=== PATIENT | female | born 1950 | race Caucasian/White ===

== ENCOUNTER 2024-05-06 16:35 | Inpatient (IN) | payer MEDICARE, SELFPAY ==
[2024-05-06] VITALS (10 sets, daily range): BP systolic 103–129; BP diastolic 70–112; PULSE 71–175; RESP 18–39; TEMP 36.3; O2SAT 94–100
--- NOTE | ~2024-05-06 | CT_ITS ---
EXAMINATION: CT abdomen pelvis wo con DATE: 05/06/2024 21:02 INDICATION: Right lower quadrant abdominal pain. TECHNIQUE: Computed tomography (CT) of the abdomen and pelvis was performed without intravenous contr ast. Automated exposure control and iterative reconstruction technique were employed. The dose-length product was 756.50 mGy-cm. COMPARISON: None. FINDINGS: The visualized portions of the lung bases demonstrate mild atelectasis. There is a trace ri ght pleural effusion. Cardiomegaly is noted. No pericardial effusion. There is diffuse hepatic steato sis. The gallbladder, spleen, pancreas, and adrenal glands are normal. There is mild right hydronephr osis and hydroureter. There is cortical thinning of left kidney. There is a 2 mm stone in left kidney . There is diverticulosis of the colon without evidence of diverticulitis. There are no dilated loops of bowel. The appendix is normal. There is a small sliding hiatal hernia. There are no pathologicall y enlarged lymph nodes. There is no free intraperitoneal fluid. There is moderate lumbar spondylosis. There are hemangiomas in multiple vertebral bodies. IMPRESSION: 1. Mild right hydronephrosis and hydroureter. 2. 2 mm nonobstructing left kidney stone. Reviewed, dictated and finalized at location E.
--- NOTE | ~2024-05-06 | US_ITS ---
US renal BI 05/09/2024 14:36 Procedure: Realtime transabdominal ultrasound of the kidneys and bladder. Indication: Hydronephrosis follow-up Comparison: CT dated 05/06/2024 Findings: Renal echotexture is normal bilaterally without hydronephrosis, contour deforming mass or r enal calculus. Mild right pelviectasis. The right kidney measures 11.6 cm and left kidney measures 10 .8 cm. Bladder within normal limits. Impression: 1: Mild right renal pelviectasis. Reviewed, dictated and finalized at location B. Impression: 1: Mild right renal pelviectasis.
--- NOTE | ~2024-05-06 | XR_ITS ---
EXAMINATION: XR chest 1V portable DATE: 05/06/2024 22:37 INDICATION: Weakness. TECHNIQUE: A single frontal view of the chest was obtained. COMPARISON: CT abdomen pelvis 05/06/2024 FINDINGS: There is no pneumonia, pleural effusion, or pneumothorax. Cardiomegaly is noted. IMPRESSION: 1. Cardiomegaly. Reviewed, dictated and finalized at location E. IMPRESSION: 1. Cardiomegaly.
--- NOTE | 2024-05-06 19:43 | ECG_ITS ---
Test Date: 2024-05-06 20:18:21 Measurements Intervals [place] Rate: 181 P: 0 GA: 0 QRS: -6 QRSD: 84 T: 60 QT: 209 QTc: 363 Interpretive Statements ATRIAL FIBRILLATION WITH RAPID VENTRICULAR RESPONSE LEFT VENTRICULAR HYPERTROPHY WITH ST-T CHANGE NONSPECIFIC ST & T-WAVE ABNORMALITY- ANT/INF LEADS ABNORMAL ECG No previous ECG available for comparison Electronically Signed On 05-07-2024 06:09:14 CDT by Sylvester Mills D.O.
--- NOTE | 2024-05-06 20:13 | PC.NURSE ---
This RN noticed pt heart rate was consistent in the 170s. Dr. Barry notified. Crash cart brought into room. Pt hooked up to pads and EKG at this time. Blood was sent down. Pt veins blew on both Rn attempts to get IV access. Dr. Barry using ultrasound to get IV at this time.
[2024-05-06 20:19] LABS: Basophils Absolute Auto 0.1 K/mm3 (0.0-0.1); Basophils Percent Auto 0.2 % (0.2-1.2); Hematocrit 39.4 % (37.0-47.0); Immature Granulocyte Absolute 1.12 K/mm3 (0.00-0.031); Immature Platelet Fraction Pct 9.5 % (0.9-11.2); Lymphocytes Absolute Auto 0.79 K/mm3 (0.9-3.2); Lymphocytes Percent Auto 2.8 % (18.3-44.2); Mean Corpuscular HGB Conc 35.5 g/dl (32-36); Mean Corpuscular Hemoglobin 31.5 pg (26-34); Mean Corpuscular Volume 88.7 fl (80-100); Mean Platelet Volume 12.1 fl (7.4-10.4); Monocytes Absolute Auto 0.8 K/mm3 (0.1-0.6); Monocytes Percent Auto 2.7 % (2.6-8.5); Neutrophils Absolute Auto 25.3 K/mm3 (1.3-6.7); Neutrophils Percent Auto 90.3 % (45.5-73.1); Platelet Count Result 105 k/mm3 (150-375); Red Blood Count 4.44 M/mm3 (4.2-5.4); Red Cell Distribution Width 12.6 % (11.5-14.5); White Blood Count 28.1 K/mm3 (4.5-10.0)
[2024-05-06] MEDS: METOPROLOL TARTRATE INJ 5 MG/5 ML VIAL IV PUSH ×2 (20:21→20:39)
[2024-05-06] MEDS: LACTATED RINGERS 1,000 ML 999 ML IV CONT (20:21)
--- NOTE | 2024-05-06 20:22 | PC.NURSE ---
Dr. Barry states pt is in Afib RVR and not SVT so 5mg of Lopressor was given and 1L of fluids was started as well.
[2024-05-06 20:28] LABS: Platelet Estimate Decreased (Adequate)
[2024-05-06 20:29] LABS: Burr Cells 1+; Hypochromasia 1+; Ovalocytes 1+; Poikilocytosis 1+; Schistocytes None Seen
[2024-05-06] MEDS: Please add drug allergy info to patient profile. 1 EACH XX (20:30)
[2024-05-06] MEDS: METOPROLOL TARTRATE 50 MG TAB 25 MG PO (20:38)
[2024-05-06 20:41] LABS: Alanine Aminotransferase 20 U/L (6-35); Albumin Level 3.9 g/dL (3.5-5.1); Alkaline Phosphatase 100 U/L (38-126); Anion Gap 17 mmol/L (4-12); Aspartate Amino Transferase 29 U/L (14-36); Bilirubin,Total 1.4 mg/dL (0.2-1.3); Blood Urea Nitrogen 45 mg/dL (7-17); Calcium 9.5 mg/dL (8.4-10.2); Carbon Dioxide 17 mmol/L (22-30); Chloride 97 mmol/L (98-107); Estimated CRCL calculation 24 ml/min; Estimated Glomerular Filt Rate 24; Glucose 210 mg/dL (65-110); Potassium 3.3 mmol/L (3.4-5.0); Sodium 131 mmol/L (137-145)
[2024-05-06 21:15] LABS: Troponin I 0.059 ng/mL (0.000-0.034)
[2024-05-06 21:21] LABS: D Dimer 5.37 ug/mL (<0.48)
[2024-05-06 22:21] LABS: Appearance Urine Turbid (Clear); Bacteria Urine 4+ /hpf; Bilirubin Urine Negative (Negative); Blood Urine 2+ (Negative); Color Urine Yellow (Yellow); Glucose Urine UA Negative (Negative); Ketones Urine Negative (Negative); Leukocyte Esterase Ur 3+ LEU/UL (Negative); Need Manual Microscopic Reviewed; Nitrate Urine Negative (Negative); Non Pathogenic Casts >20; Protein Urine 3+ mg/dL (Negative); RBC Urine 0-2 /hpf (0-2); Specific Grav Ur 1.016 (1.001-1.035); Squamous Epithelial Cell Urine Few /hpf (Few); Urobilinogen Urine 0.2 mg/dL (<2.0); WBC Urine >100 /hpf (0-3); pH Urine 5.5 (5.0-9.0)
[2024-05-06 22:25] LABS: Add Urine Microscopic? YES
--- NOTE | 2024-05-06 23:04 | PC.NURSE ---
This Rn attempted to draw blood cultures and was unsuccessful. RN got one gree top full of cultures and pt 3 hour trop before vein blew. Phelobetomy called to grab second set and orange top.
--- NOTE | 2024-05-06 23:20 | ED.WEAKNESS ---
HPI - Weakness General Chief complaint: Weakness Stated complaint: weak Time Seen by Provider: 05/06/24 19:43 History of Present Illness HPI Narrative: Patient states that she has not been feeling well for the last few days, she started feeling funny on Sunday and feeling very tired. Also having some pain to the right lower abdomen; had h/o appy. Related Data Allergies Allergy/AdvReac Type Severity Reaction Status Date / Time No Known Allergies Allergy Verified 05/06/24 20:16 Review of Systems Review of Systems: All systems reviewed & are unremarkable except as noted in HPI and below Exam Narrative: EXAMINATION OF ORGAN SYSTEMS/BODY AREAS: Constitutional: Vital signs per nursing GENERAL:[No acute distress, non-toxic appearing.] HEAD: Normal with no signs of head trauma. EYES: EOMI, conjunctiva normal ENT: Hearing grossly intact LUNGS: Nonlabored breathing. HEART: irregular, tachycardic ABD: [Soft], [nontender to palpation] EXT: Normal range of motion SKIN: [No rashes or lesions.] NEURO: [Alert and oriented x 3. No gross focal sensory or strength deficits.] PSYCH: Normal affect Course Vital Signs Vital signs: Vital Signs Temperature 97.4 F L 05/06/24 16:38 Pulse Rate 77 05/06/24 16:38 Respiratory Rate 20 05/06/24 16:38 Blood Pressure 116/70 05/06/24 16:38 Pulse Oximetry 98 05/06/24 16:38 Oxygen Delivery Room Air 05/06/24 16:38 Temperature 97.4 F L 05/06/24 16:38 Pulse Rate 80 05/06/24 22:06 Respiratory Rate 27 H 05/06/24 22:06 Blood Pressure 129/80 05/06/24 22:06 Pulse Oximetry 100 05/06/24 22:06 Oxygen Delivery Room Air 05/06/24 16:38 MDM - Weakness MDM Narrative Medical decision making narrative: patient presents with generalized weakness and not feeling well for last few days, she has no cardiac history. She has some right lower quadrant pain. On exam is tired, she is having irregular rhythm with heart rate in the 170s to 190s. She is immediately placed on monitors, quality assurance monitor placed at bedside, EKG obtained which shows AFib with RVR, IV fluids started and metoprolol IV given x2 and p.o. dose, after which her heart rate started improving and she eventually converted to normal sinus rhythm. has never had history of AFib in the past. I did look for infectious cause, she does have a white count of 28, urine does appear quite infected I did refer did obtain a CT to rule out septic stone there was mild hydroureter but no obvious retention or stone. Antibiotics started. Case discussed with hospitalist for admission. She does have an elevated D-dimer however her creatinine is too high at this time to get a CT PE, I do feel that after IV fluids her creatinine will improve and they can with obtained a CT PE later, or NM scan while she is admitted. At this time I do not feel she has a pulmonary embolism or not 1 that is large enough to cause any hemodynamic compromise given that she now has a normal heart rate, and 100% on saturations on room air. Lab Data 05/06/24 20:11 05/06/24 20:11 Labs: Lab Results 05/06/24 05/06/24 Range/Units 20:11 21:52 WBC 28.1 H (4.5-10.0) K/mm3 RBC 4.44 (4.2-5.4) M/mm3 Hgb 14.0 (12.0-15.0) g/dL Hct 39.4 (37.0-47.0) % MCV 88.7 (80-100) fl MCH 31.5 (26-34) pg MCHC 35.5 (32-36) g/dl RDW 12.6 (11.5-14.5) % Plt Count 105 L (150-375) k/mm3 MPV 12.1 H (7.4-10.4) fl Immature Gran % (Auto) 4.0 H (0-0.5) % Neut % (Auto) 90.3 H (45.5-73.1) % Lymph % (Auto) 2.8 L (18.3-44.2) % [place] % (Auto) 2.7 (2.6-8.5) % Eos % (Auto) 0.0 (0-4.4) % Baso % (Auto) 0.2 (0.2-1.2) % Lymph # (Auto) 0.79 L (0.9-3.2) K/mm3 [place] # (Auto) 0.8 H (0.1-0.6) K/mm3 Eos # (Auto) 0.0 (0-0.3) K/mm3 Baso # (Auto) 0.1 (0.0-0.1) K/mm3 Abs Immat Gran (auto) 1.12 H (0.00-0.031) K/mm3 Absolute Neuts (auto) 25.3 H (1.3-6.7) K/mm3 Absolute Nuclea
[2024-05-06 23:37] LABS: Troponin I 0.056 ng/mL (0.000-0.034)
--- NOTE | 2024-05-06 23:46 | PC.NURSE ---
This RN asked pt of her code status and pt states she wants to be DNR.
[2024-05-07] VITALS (20 sets, daily range): BP systolic 113–126; BP diastolic 48–72; PULSE 61–177; RESP 18–24; TEMP 36.4–37; O2SAT 93–100; BMI 29.9; BMI 29.3
--- NOTE | 2024-05-07 | ADMGEN ---
This patient, Roselia Maddox, was admitted to IMU Room 209-01. Patient/family oriented to hospital policies and general routines including ID bracelet, bed and alarms, visiting hours, pain management, procedures, bathroom and other care routines, personal items, smoking policy, room service/diet, and visiting hours. Information on how to activate the Rapid Response Team has been discussed. Patient/Family are encouraged to report perceived risks to care and to ask questions if they do not understand what they are told or what they should do.
--- NOTE | 2024-05-07 00:50 | ECHO_ITS ---
Patient Info Name: Roselia Maddox Age: 74 years : 1950 Gender: Female Ht: 65 in Wt: 179 lbs BSA: 1.95 m2 HR: 83 bpm BP: 115 / 55 mmHg Heart Rhythm: Sinus Rhythm Technical Quality: Fair Exam Date: 05/07/2024 9:07 AM Exam Location: Echo Lab Patient Status: Inpatient Admit Date: 05/06/2024 Staff Ordering Physician: Polo Boss MD Audiovisual Lead Technician: Elen Zamarriap RDCS Attending Provider: Polo Boss MD Exam Type: CA echo dop color flow w con Study Info Indications - chf Complete two-dimensional, color flow and Doppler transthoracic echocardiogram is performed with contrast to opacify the left ventricle and to improve the deliniation of the left ventricle endocardial borders. Contrast/Agitated Saline Contrast/Ag. Saline: Definity Amount: 3.00 ml Administered By: Elen Zamarripa RDCS Existing IV Access: Yes IV Access Condition: patent with no signs of infiltration Summary 1. Left ventricular chamber dimension is normal. 2. Left ventricular systolic function is normal, estimated at 65-70%. 3. There is mildly increased left ventricular wall thickness. 4. The left ventricular diastolic function is abnormal. 5. Left atrial chamber dimension is moderately enlarged. 6. There is mild mitral valve regurgitation. 7. The mitral valve annulus is mildly calcified. 8. There is mild tricuspid valve regurgitation. 9. Mild pulmonary hypertension, estimated pulmonary arterial systolic pressure is 42 mmHg. Left Ventricle Left ventricular chamber dimension is normal. Left ventricular systolic function is normal, estimated at 65-70%. There is mildly increased left ventricular wall thickness. The left ventricular diastolic function is abnormal. Right Ventricle Right ventricular chamber dimension is normal. Right ventricular systolic function is normal. Left Atria Left atrial chamber dimension is moderately enlarged. Right Atria Right atrial chamber dimension is normal. Atrial Septum Intact interatrial septum visualized by color flow imaging. Aortic Valve The aortic valve is trileaflet. There is mild aortic valve sclerosis. There is no aortic valve stenosis. There is trace aortic valve regurgitation. Pulmonic Valve The pulmonic valve is normal. There is no pulmonic valve stenosis. There is trace pulmonic regurgitation. Mitral Valve There is no mitral valve stenosis. There is mild mitral valve regurgitation. The mitral valve annulus is mildly calcified. Tricuspid Valve The tricuspid valve leaflets are normal. There is no significant tricuspid valve stenosis. There is mild tricuspid valve regurgitation. Mild pulmonary hypertension, estimated pulmonary arterial systolic pressure is 42 mmHg. Pericardium/Pleural The pericardium appears normal. There is trivial pericardial effusion. Inferior Vena Cava Normal inferior vena cava with >50% collapse upon inspiration consistent with normal right atrial pressure, 10 mmHg. Aorta The aortic root size at the sinus of Valsalva is normal. Left Ventricular Outflow Tract Name Value Normal LVOT 2D LVOT Diameter 1.98 cm LVOT Doppler LVOT Peak Gradient 8 mmHg LVOT M
--- NOTE | 2024-05-07 00:51 | PM.IMHP ---
H&P: HPI History of Present Illness Date/Time: 05/07/24 00:51 Chief Complaint: Shortness of breath Narrative: Patient is a 8 74-year-old with history of anxiety, hypertension, hyperlipidemia complaining of weakness and tiredness since Sunday. Patient also noted rapid heart rate. No previous history of any coronary disease no history of any atrial fibrillation in the past patient also has been complaining of some urgency and frequency of urination no fever chills nausea vomiting diarrhea hematemesis hemoptysis no dizziness no loss of consciousness no head injuries. ER course patient EKG showed AFib with RVR patient was given metoprolol IV x2 rate improved converted to sinus rhythm. Chest CT could not be done due to the poor renal function we will order for V/Q scan in the morning recheck labs Review of Systems Review of Systems: All systems reviewed & are unremarkable except as noted in HPI and below PMFSH Family History Family History (Updated 05/07/24 @ 00:18 by Eric Prado RN) Mother Oat cell carcinoma Sibling Cancer Daughter Cancer Social History Social History Smoking status: Never smoker Alcohol intake: never Substance use: never Substance use type: does not use Do You Feel Safe in your Home?: Yes Lack of Transportation: No Lack of Food: Never True Current Housing: I Have Housing Concerned About Future Housing: No Difficulty Paying Gas/Electric Bills: No Difficulty Paying for Meds: No Currently Unemployed: No Education: High School Diploma/GED Difficulty w/ Childcare or Family Care: No Spiritual care concerns: No Meds Home Medications and Allergies Home Medications Medication Instructions Recorded Confirmed Type albuterol sulfate 90 mcg/actuation 2 puff inhalation QID PRN Allergy 05/07/24 05/07/24 History aerosol inhaler Symptoms amitriptyline 25 mg tablet 25 mg PO HS 05/07/24 05/07/24 History aripiprazole 5 mg tablet 5 mg PO DAILY 05/07/24 05/07/24 History atorvastatin 40 mg tablet 40 mg PO DAILY 05/07/24 05/07/24 History calcium carbonate (Calcium 600) 600 mg PO DAILY 05/07/24 05/07/24 History cholecalciferol (vitamin D3) 25 25 mcg PO DAILY 05/07/24 05/07/24 History mcg (1,000 unit) capsule cyanocobalamin (vitamin B-12) 1,000 mcg PO DAILY 05/07/24 05/07/24 History 1,000 mcg tablet (Vitamin B-12) fenofibrate micronized 67 mg 67 mg PO DAILY 05/07/24 05/07/24 History capsule fluticasone propionate 50 1 spray intranasal Q12H 05/07/24 05/07/24 History mcg/actuation nasal spray,suspension lisinopril 40 mg tablet 40 mg PO DAILY 05/07/24 05/07/24 History sertraline 100 mg tablet 100 mg PO DAILY 05/07/24 05/07/24 History sumatriptan succinate 50 mg tablet 50 mg PO ONCE PRN Migraine Headache 05/07/24 05/07/24 History topiramate 25 mg tablet 25 mg PO DAILY 05/07/24 05/07/24 History trazodone 100 mg tablet 100 mg PO DAILY 05/07/24 05/07/24 History Allergies Allergy/AdvReac Type Severity Reaction Status Date / Time No Known Allergies Allergy Verified 05/06/24 20:16 Vital Signs Vital Signs - 24 hr 05/06/24 16:38 05/06/24 19:47 05/06/24 19:49 Temperature 36.3 C L Pulse Rate 77 97 84 Respiratory Rate 20 36 H Blood Pressure 116/70 113/78 Pulse Oximetry 98 98 Oxygen Delivery Room Air 05/06/24 20:02 05/06/24 20:21 05/06/24 20:22 Temperature Pulse Rate 174 H 152 H 152 H Respiratory Rate 39 H Blood Pressure 103/74 Pulse Oximetry 94 Oxygen Delivery 05/06/24 20:38 05/06/24 20:39 05/06/24 21:04 Temperature Pulse Rate 156 H 175 H 71 Respiratory Rate 18 Blood Pressure 128/112 H Pulse Oximetry 99 Oxygen Delivery 05/06/24 22:06 05/07/24 00:00 05/07/24 00:00 Temperature Pulse Rate 80 74 Respiratory Rate 27 H Blood Pressure 129/80 Pulse Oximetry 100 Oxygen Delivery Room Air 05/07/24 00:00 05/07/24 00:43 Temperature 36.9 C Pulse Rate 70 74 Respiratory Rate 19 Blood Pressu
[2024-05-07 02:42] LABS: Hematocrit 33.7 % (37.0-47.0); Immature Platelet Fraction Pct 6.6 % (0.9-11.2); Mean Corpuscular HGB Conc 35.6 g/dl (32-36); Mean Corpuscular Hemoglobin 31.7 pg (26-34); Mean Corpuscular Volume 89.2 fl (80-100); Mean Platelet Volume 11.3 fl (7.4-10.4); Platelet Count Result 97 k/mm3 (150-375); Red Blood Count 3.78 M/mm3 (4.2-5.4); Red Cell Distribution Width 12.7 % (11.5-14.5); White Blood Count 21.9 K/mm3 (4.5-10.0)
[2024-05-07 03:05] LABS: Alanine Aminotransferase 18 U/L (6-35); Albumin Level 3.2 g/dL (3.5-5.1); Alkaline Phosphatase 86 U/L (38-126); Anion Gap 13 mmol/L (4-12); Aspartate Amino Transferase 21 U/L (14-36); Bilirubin,Total 1.1 mg/dL (0.2-1.3); Blood Urea Nitrogen 45 mg/dL (7-17); Calcium 8.9 mg/dL (8.4-10.2); Carbon Dioxide 19 mmol/L (22-30); Chloride 99 mmol/L (98-107); Estimated CRCL calculation 24 ml/min; Estimated Glomerular Filt Rate 24; Glucose 162 mg/dL (65-110); Potassium 3.1 mmol/L (3.4-5.0); Sodium 131 mmol/L (137-145); Troponin I 0.058 ng/mL (0.000-0.034)
[2024-05-07 03:33] LABS: Cholesterol 137 mg/dL (0-200)
[2024-05-07 04:00] LABS: Triglycerides 760 mg/dL (<150)
[2024-05-07 04:01] LABS: LDL Cholesterol Direct < 60 mg/dL
[2024-05-07] MEDS: ARIPiprazole 5 MG TABLET PO (08:32)
[2024-05-07] MEDS: ATORVASTATIN 40 MG TABLET PO (08:32)
[2024-05-07] MEDS: TOPIRAMATE 25 MG TABLET PO (08:32)
[2024-05-07] MEDS: ENOXAPARIN 80 MG/0.8 ML SYRINGE SUB-Q (08:32)
[2024-05-07] MEDS: SERTRALINE HCL 50 MG TABLET 100 MG PO (08:32)
[2024-05-07] MEDS: PANTOPRAZOLE 40 MG TABLET PO (08:32)
[2024-05-07] MEDS: FENOFIBRATE,MICRONIZED 48 MG TABLET PO (08:33)
--- NOTE | 2024-05-07 09:35 | PC.NURSE ---
States, I feel better since I got some rest . Denies any acute abnormalities this morning during physical assessment including abdominal pain or discomfort, chest pain and shortness of breath. Able to sit on the side of the bed and tolerated breakfast without issues. Pleasant, flat affect. Vital signs stable. No acute distress noted at this time. 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
[2024-05-07] MEDS: PERFLUTREN LIPID MICROSPHERES 1.5 ML VIAL DILUTED TO 10 ML TOTAL VOLUME IV PUSH (09:37)
--- NOTE | 2024-05-07 10:24 | IVDEFINITY ---
Prior to administration of IV Definity the patient was educated on the risks and benefits of the imaging enhancing agent including potential adverse side effects. The patient verbalized understanding. Allergies were verified. No exclusion criteria were identified and at least one of the following inclusion criteria were met: 1) physician request, 2) patient technically difficult to image (per the [place] [employer] guidelines of two or more segments not discernable within the apical view), or 3) questionable left ventricular function. ?
--- NOTE | 2024-05-07 11:41 | ECG_ITS ---
Test Date: 2024-05-07 11:49:57 Measurements Intervals [place] Rate: 170 P: 0 IN: 0 QRS: -2 QRSD: 80 T: 120 QT: 210 QTc: 354 Interpretive Statements ATRIAL FIBRILLATION WITH RAPID VENTRICULAR RESPONSE ST-T WAVE ABNORMALITY IN ANTEROLAT/HIGH LAT LEADS- CONSIDER ISCHEMIA BASELINE WANDER- V4-V6 ABNORMAL ECG Compared to ECG 05/06/2024 20:18:21 ST-T WAVE ABNORMALITY NOW PRESENT Electronically Signed On 05-07-2024 13:00:31 CDT by Sylvester Mills D.O.
--- NOTE | 2024-05-07 11:47 | PM.IMPN ---
Progress Note: A&P Assessment and Plan (1) Sepsis: Code(s): A41.9 - Sepsis, unspecified organism Status: Acute (2) Acute UTI: Code(s): N39.0 - Urinary tract infection, site not specified Status: Acute (3) Atrial fibrillation with RVR: Code(s): I48.91 - Unspecified atrial fibrillation Status: Acute (4) Dehydration: Code(s): E86.0 - Dehydration Status: Acute Plan Sepsis/UTI. WBCs 28 K Urine cultures and sensitivity. Continue IV hydration. Monitor CBC CMP monitor for sepsis. Monitor vital signs Start antibiotics IV ceftriaxone Start probiotics to prevent antibiotic induced diarrhea Blood cultures pending Monitor for obstructive uropathy and pyelonephritis. AFIB/non-STEMI statin and antiplatelet therapy Lipitor and Lovenox Monitor high troponins possible due to demand ischemia Monitor for RVR and SOB Keeping BMI less than 25 Advised low-salt low carb diet. Cardiology Echo results 1. Left ventricular chamber dimension is normal. 2. Left ventricular systolic function is normal, estimated at 65-70%. 3. There is mildly increased left ventricular wall thickness. 4. The left ventricular diastolic function is abnormal. 5. Left atrial chamber dimension is moderately enlarged. 6. There is mild mitral valve regurgitation. 7. The mitral valve annulus is mildly calcified. 8. There is mild tricuspid valve regurgitation. 9. Mild pulmonary hypertension, estimated pulmonary arterial systolic pressure is 42 mmHg. JAVIER, hypokalemia, hyponatremia cause dehydration/Barrett inhibitors serum creatinine 2.0 Avoid nephrotoxic drugs. Monitor antihypertensive drug therapy. Avoid NSAIDs. Routine CMP monitoring GFR. Monitor electrolytes especially potassium. Pharmacy does medications. Replete with potassium chloride in normal saline History of depression continue Abilify and Elavil., trazodone, Zoloft DVT prophylaxis. Lovenox GI prophylaxis. All records reviewed Discussed plan of care with the nursing staff and with the patient in detail. Answered all questions and concerns from the patient. All labs have been reviewed. Code status updated patient is DNR DNI discussed with ER doc dictation may have been done utilizing a voice recognition system. Attempts have been made to correct errors. However, there may be uncorrected grammatical, spelling, and recognition errors present. Subjective Date/time seen: 05/07/24 11:47 Interval history: I saw examined patient today, patient denies chest pain, palpitation, leukocytosis improving, patient is afebrile, blood pressure soft Exam Narrative: GENERAL: Pleasant, in no acute distress. Well-nourished. - EYES: EOMI. Anicteric. - HENT: Moist mucous membranes. - LUNGS: Clear to auscultation bilaterally, no wheezing, rhonchi, or rales. - CARDIOVASCULAR: Irregular irregular rhythm No murmur. No JVD. - ABDOMEN: Soft, non-tender and non-distended. No palpable masses. - EXTREMITIES: No edema. Peripheral pulses 2+. Non-tender. - NEUROLOGIC: No focal neurological deficits. CN II-XII grossly intact. - PSYCHIATRIC: Awake, Alert and oriented x 3. Appropriate mood and affect. - SKIN: No rashes or lesions. Warm. - LYMPH: No cervical lymphadenopathy. Objective Data Vital Signs Vital Signs: Vital Signs - 24 hr 05/06/24 16:38 05/06/24 19:47 05/06/24 19:49 Temperature 97.4 F L Pulse Rate 77 97 84 Respiratory Rate 20 36 H Blood Pressure 116/70 113/78 Pulse Oximetry 98 98 Oxygen Delivery Room Air 05/06/24 20:02 05/06/24 20:21 05/06/24 20:22 Temperature Pulse Rate 174 H 152 H 152 H Respiratory Rate 39 H Blood Pressure 103/74 Pulse Oximetry 94 Oxygen Delivery 05/06/24 20:38 05/06/24 20:39 05/06/24 21:04 Temperature Pulse Rate 156 H 175 H 71 Respiratory Rate 18 Blood Pressure 128/112 H Pulse Oximetry 99 Oxygen Delivery 05/06/24 22:06 04/28
[2024-05-07] MEDS: METOPROLOL TARTRATE INJ 5 MG/5 ML VIAL IV PUSH ×2 (11:52→12:06)
[2024-05-07] MEDS: METOPROLOL TARTRATE INJ 5 MG/5 ML VIAL (12:04)
--- NOTE | 2024-05-07 12:31 | PC.NURSE ---
1138am patient had walked to the bathroom and HR increased to 156. Back to bed, feels Not well . When asked if feeling dizzy? Stated Yes . When asked if lightheaded? Stated yes . Instructed to stay in bed. Oxygen placed on 2L/NC. Vital signs obtained 127/91, 162, 28, 99% on 2L/NC, 98.3 oral temp. Encouraged patient to do the Valsalva maneuver twice. No change in HR. Hospitalist on the floor, discussed patient condition. STAT EKG ordered at this time. Called Head Resident and reported event along with VS. Orders received to give Metoprol 5mg/IV STAT. First dose given with no change in HR. Hospitalist at bedside to assess patient condition, ordered second dose of Metoprol 5mg/IV. Blood pressure obtained prior to giving second dose 126/86. renewable energy technician at bedside. EKG reads A-Fib RVR. Converted to SR at 1217pm. At which time this RN assessed patient. States Feels much better, dizziness gone and no longer lightheaded. Patient instructed to stay on bedrest and call for further assistance if needing to use the bathroom. Informed that she would need to use bedside commode at this time and if the episode happens again, may need to maintain bedrest and use bedpan. Verbalizes understanding at this time. No further distress or discomfort noted at this time. Cardiology on the floor to see the patient. Gave him a copy of current EKG.
--- NOTE | 2024-05-07 13:22 | PM.CNCAR ---
Assessment and Plan Assessment and plan (1) Atrial fibrillation with RVR: Code(s): I48.91 - Unspecified atrial fibrillation Status: Acute Assessment and Plan: Paroxysmal atrial fibrillation. New diagnosis for the patient. TSH level normal. Echocardiogram pending. Will start Metoprolol 25mg Q6H. Treat underlying sepsis. [id number] of 3 for age, gender, hypertension. Anticoagulation for stroke risk reduction indicated. Discussed with patient, including risks vs benefits. Patient agreeable. Continue therapeutic Lovenox for now, transition to NOAC prior to discharge and if her thrombocytopenia stays stable (thrombocytopenia likely due to sepsis). She will need an outpatient sleep study. (2) Sepsis: Code(s): A41.9 - Sepsis, unspecified organism Status: Acute Assessment and Plan: Management as per primary team. (3) Acute kidney injury: Code(s): N17.9 - Acute kidney failure, unspecified Status: Acute Assessment and Plan: Baseline not known. Likely due to sepsis. (4) Elevated troponin: Code(s): R79.89 - Other specified abnormal findings of blood chemistry Status: Acute Assessment and Plan: Minimally elevated and flat. Likely demand ischemia from PAF with RVR, sepsis, JAVIER. Does not appear to be an acute coronary syndrome. Echocardiogram pending. Plan Recommendations and plan discussed with Hospitalist. History of Present Illness History of Present Illness Consult date/time: 05/07/24 13:22 Requesting physician: Polo Boss MD Consult reason: atrial fibrillation Reason For Visit: Sepsis, Afib w/RVR, UTI Narrative: We are consulted for atrial fibrillation with RVR. This is a 74 year old female with who presented with not feeling well over the past few days, along with right lower abdominal pain. Has felt some palpitations over the past few days. No chest pain. Upon presentation to the ED, she was found to be in atrial fibrillation with RVR. Given Metoprolol IV x 2 along with IVFs. Heart rate started to improve and then patient converted to sinus rhythm. In the ED, she was noted to be septic. WBC 28. Plt count 105. SCr of 2 (no prior baseline). Troponins are minimally elevated at 0.059, 0.056, 0.058. TSH level normal. CT of the abdomen and pelvis shows mild right hydronephrosis and hydroureter, 2mm nonobstructing left kidney stone. CXR shows cardiomegaly, but otherwise the lungs are clear. Blood and urine cultures are pending. Patient denies any prior cardiac history. No prior diagonsis of AFIB. Review of Systems Review of Systems: All systems reviewed & are unremarkable except as noted in HPI and below (HPI) [facility] Family History Family History Mother Oat cell carcinoma Sibling Cancer Daughter Cancer Social History Social History Smoking status: Never smoker Alcohol intake: never Substance use: never Substance use type: does not use Do You Feel Safe in your Home?: Yes Lack of Transportation: No Lack of Food: Never True Current Housing: I Have Housing Concerned About Future Housing: No Difficulty Paying Gas/Electric Bills: No Difficulty Paying for Meds: No Currently Unemployed: No Education: High School Diploma/GED Difficulty w/ Childcare or Family Care: No Spiritual care concerns: No Meds Home Medications and Allergies Home Medications Medication Instructions Recorded Confirmed Type albuterol sulfate 90 mcg/actuation 2 puff inhalation QID PRN Allergy 05/07/24 05/07/24 History aerosol inhaler Symptoms amitriptyline 25 mg tablet 25 mg PO HS 05/07/24 05/07/24 History aripiprazole 5 mg tablet 5 mg PO DAILY 05/07/24 05/07/24 History atorvastatin 40 mg tablet 40 mg PO DAILY 05/07/24 05/07/24 History calcium carbonate (Calcium 600) 600 mg PO DAILY 05/07/24 05/07/24 History cholecalciferol (vitamin D3) 2
[2024-05-07] MEDS: METOPROLOL TARTRATE 25 MG TABLET PO ×2 (13:31→20:45)
[2024-05-07] MEDS: traZODone HCL 50 MG TABLET 100 MG PO (20:45)
[2024-05-07] MEDS: AMITRIPTYLINE HCL 25 MG TABLET PO (20:45)
[2024-05-07] MEDS: SODIUM CHLORIDE 0.9% IV 1,000 ML 125 ML IV CONT (20:47)
[2024-05-07] MEDS: POTASSIUM CHLORIDE 20 MEQ PACKET (FOR LIQUID) 40 MEQ PO (20:47)
[2024-05-08] VITALS (20 sets, daily range): BP systolic 117–120; BP diastolic 51–89; PULSE 59–76; RESP 18–22; TEMP 35.8–37.3; O2SAT 93–98
[2024-05-08] MEDS: METOPROLOL TARTRATE 25 MG TABLET PO ×5 (01:31→23:04)
[2024-05-08 04:59] LABS: Hematocrit 31.3 % (37.0-47.0); Hemoglobin 10.6 g/dL (12.0-15.0); Mean Corpuscular HGB Conc 33.9 g/dl (32-36); Mean Corpuscular Hemoglobin 30.7 pg (26-34); Mean Corpuscular Volume 90.7 fl (80-100); Mean Platelet Volume 12.2 fl (7.4-10.4); Platelet Count Result 90 k/mm3 (150-375); Red Blood Count 3.45 M/mm3 (4.2-5.4); Red Cell Distribution Width 12.7 % (11.5-14.5); White Blood Count 12.4 K/mm3 (4.5-10.0)
[2024-05-08 05:16] LABS: Alanine Aminotransferase 16 U/L (6-35); Albumin Level 2.8 g/dL (3.5-5.1); Alkaline Phosphatase 112 U/L (38-126); Anion Gap 9 mmol/L (4-12); Aspartate Amino Transferase 24 U/L (14-36); Bilirubin,Total 1.1 mg/dL (0.2-1.3); Blood Urea Nitrogen 43 mg/dL (7-17); Calcium 8.5 mg/dL (8.4-10.2); Carbon Dioxide 18 mmol/L (22-30); Chloride 105 mmol/L (98-107); Estimated CRCL calculation 29 ml/min; Estimated Glomerular Filt Rate 30; Glucose 122 mg/dL (65-110); Potassium 3.1 mmol/L (3.4-5.0); Sodium 132 mmol/L (137-145)
[2024-05-08] MEDS: SODIUM CHLORIDE 0.9% IV 1,000 ML 125 ML IV CONT ×3 (05:16→23:05)
--- NOTE | 2024-05-08 08:42 | PM.PNCARD ---
Progress Note: A&P Assessment and Plan (1) Atrial fibrillation with RVR: Code(s): I48.91 - Unspecified atrial fibrillation Status: Acute Assessment and Plan: Paroxysmal atrial fibrillation. New diagnosis for the patient. TSH level normal. Echocardiogram showed normal LVSF, no significant valve disease Continue Metoprolol, will shift to Toprol XL for dosing convenience Treat underlying sepsis. [id number] of 3 for age, gender, hypertension. Anticoagulation for stroke risk reduction indicated. Discussed with patient, including risks vs benefits. Patient agreeable. Continue therapeutic Lovenox for now, transition to NOAC prior to discharge and if her thrombocytopenia stays stable (thrombocytopenia likely due to sepsis). She will need an outpatient sleep study. (2) Sepsis: Code(s): A41.9 - Sepsis, unspecified organism Status: Acute Assessment and Plan: Management as per primary team. (3) Acute kidney injury: Code(s): N17.9 - Acute kidney failure, unspecified Status: Acute Assessment and Plan: Baseline not known. Likely due to sepsis. (4) Elevated troponin: Code(s): R79.89 - Other specified abnormal findings of blood chemistry Status: Acute Assessment and Plan: Minimally elevated and flat. Likely demand ischemia from PAF with RVR, sepsis, JAVIER. Does not appear to be an acute coronary syndrome. Echocardiogram pending. Plan Recommendations and plan discussed with Hospitalist. Subjective Date/time seen: 05/08/24 08:42 Interval history: Cardiology follow-up for atrial fibrillation Date of service 05/08/2024: Telemetry shows atrial fibrillation with rate controlled in the 60s. Feeling better this morning, no palpitations, chest pain, shortness of breath. Review of Systems Review of Systems: All systems reviewed & are unremarkable except as noted in HPI and below (HPI) Exam Const: General: no acute distress Other: Ill appearing female HENMT: Mouth: Yes moist mucous membranes Eyes: General: appearance normal, both eyes and all related structures Sclera: sclerae normal Resp: Effort & Inspection: normal respiratory effort Auscultation: clear to auscultation bilaterally Cardio: Rate: regular rate Rhythm: regular rhythm Heart sounds: no murmurs Skin: General skin exam: normal color Other: no edema Neuro: Speech: normal speech Psych: Mental Status: mental status grossly normal Affect: normal affect Objective Data Vital Signs Vital Signs: Vital Signs - 24 hr 05/07/24 10:00 05/07/24 11:18 05/07/24 11:52 Temperature 36.5 C Pulse Rate 88 72 177 H Respiratory Rate 24 H Blood Pressure 125/70 Pulse Oximetry 100 Oxygen Delivery 05/07/24 12:04 05/07/24 12:06 05/07/24 12:00 Temperature Pulse Rate 154 H 140 H 155 H Respiratory Rate Blood Pressure Pulse Oximetry Oxygen Delivery 05/07/24 12:00 05/07/24 13:31 05/07/24 15:24 Temperature 37.0 C Pulse Rate 155 H 74 61 Respiratory Rate 24 H 20 Blood Pressure 119/59 L Pulse Oximetry 100 95 Oxygen Delivery Room Air 05/07/24 14:00 05/07/24 16:00 05/07/24 16:00 Temperature Pulse Rate 72 66 61 Respiratory Rate 20 Blood Pressure Pulse Oximetry 95 Oxygen Delivery Room Air 05/07/24 17:56 05/07/24 20:00 05/07/24 20:45 Temperature 36.8 C Pulse Rate 62 65 69 Respiratory Rate 18 Blood Pressure 124/72 Pulse Oximetry 96 Oxygen Delivery 05/07/24 20:00 05/07/24 20:00 05/07/24 22:00 Temperature Pulse Rate 67 67 68 Respiratory Rate 18 Blood Pressure Pulse Oximetry 96 Oxygen Delivery Room Air 05/08/24 00:00 05/08/24 00:00 05/08/24 00:00 Temperature 37.3 C Pulse Rate 70 76 76 Respiratory Rate 19 19 Blood Pressure 117/57 L Pulse Oximetry 97 97 Oxygen Delivery Room Air 05/08/24 01:31 05/08/24 02:00 05/08/24 04:00 Temperature Pulse Rate 68 70 67 Respi
[2024-05-08] MEDS: POTASSIUM CHLORIDE 20 MEQ PACKET (FOR LIQUID) PO ×2 (09:16→18:03)
[2024-05-08] MEDS: TOPIRAMATE 25 MG TABLET PO (09:16)
[2024-05-08] MEDS: ARIPiprazole 5 MG TABLET PO (09:16)
[2024-05-08] MEDS: PANTOPRAZOLE 40 MG TABLET PO (09:16)
[2024-05-08] MEDS: SERTRALINE HCL 50 MG TABLET 100 MG PO (09:16)
[2024-05-08] MEDS: FENOFIBRATE,MICRONIZED 48 MG TABLET PO (09:16)
[2024-05-08] MEDS: ATORVASTATIN 40 MG TABLET PO (09:16)
--- NOTE | 2024-05-08 10:27 | PM.IMPN ---
Progress Note: A&P Assessment and Plan (1) Sepsis: Code(s): A41.9 - Sepsis, unspecified organism Status: Acute (2) Acute UTI: Code(s): N39.0 - Urinary tract infection, site not specified Status: Acute (3) Atrial fibrillation with RVR: Code(s): I48.91 - Unspecified atrial fibrillation Status: Acute (4) Dehydration: Code(s): E86.0 - Dehydration Status: Acute Plan Patient is a [age]-year-old with history of anxiety, hypertension, hyperlipidemia complaining of weakness and tiredness since Sunday. Patient also noted rapid heart rate. No previous history of any coronary disease no history of any atrial fibrillation in the past patient also has been complaining of some urgency and frequency of urination Sepsis/UTI. WBCs 28 K Urine cultures and sensitivity. Continue IV hydration. Monitor CBC CMP monitor for sepsis. Monitor vital signs Start antibiotics IV ceftriaxone Start probiotics to prevent antibiotic induced diarrhea Blood cultures grows Gram-negative bacilli Increase ceftriaxone to 2 g IV daily, AFIB/non-STEMI statin and antiplatelet therapy Lipitor and Lovenox Monitor high troponins possible due to demand ischemia Monitor for RVR and SOB Keeping BMI less than 25 Advised low-salt low carb diet. Cardiology Echo results 1. Left ventricular chamber dimension is normal. 2. Left ventricular systolic function is normal, estimated at 65-70%. 3. There is mildly increased left ventricular wall thickness. 4. The left ventricular diastolic function is abnormal. 5. Left atrial chamber dimension is moderately enlarged. 6. There is mild mitral valve regurgitation. 7. The mitral valve annulus is mildly calcified. 8. There is mild tricuspid valve regurgitation. 9. Mild pulmonary hypertension, estimated pulmonary arterial systolic pressure is 42 mmHg. Consult upper marker appreciate recommendations JAVIER, hypokalemia, hyponatremia cause dehydration/Barrett inhibitors serum creatinine 2.0 Avoid nephrotoxic drugs. Monitor antihypertensive drug therapy. Avoid NSAIDs. Routine CMP monitoring GFR. Monitor electrolytes especially potassium. Pharmacy does medications. Replete with potassium chloride in normal saline Creatinine is trending down History of depression continue Abilify and Elavil., trazodone, Zoloft DVT prophylaxis. Lovenox GI prophylaxis. All records reviewed Subjective Date/time seen: 05/08/24 10:27 Interval history: I saw exam patient today, patient feels better, patient still has low abdomen pain, dysuria patient is afebrile, blood pressure stable, leukocytosis improving Exam Narrative: GENERAL: Pleasant, in no acute distress. Well-nourished. - EYES: EOMI. Anicteric. - HENT: Moist mucous membranes. - LUNGS: Clear to auscultation bilaterally, no wheezing, rhonchi, or rales. - CARDIOVASCULAR: Irregular irregular rhythm No murmur. No JVD. - ABDOMEN: Soft, non-tender and non-distended. No palpable masses. - EXTREMITIES: No edema. Peripheral pulses 2+. Non-tender. - NEUROLOGIC: No focal neurological deficits. CN II-XII grossly intact. - PSYCHIATRIC: Awake, Alert and oriented x 3. Appropriate mood and affect. - SKIN: No rashes or lesions. Warm. - LYMPH: No cervical lymphadenopathy. Objective Data Vital Signs Vital Signs: Vital Signs - 24 hr 05/07/24 11:18 05/07/24 11:52 05/07/24 12:04 Temperature 97.7 F Pulse Rate 72 177 H 154 H Respiratory Rate 24 H Blood Pressure 125/70 Pulse Oximetry 100 Oxygen Delivery 05/07/24 12:06 05/07/24 12:00 05/07/24 12:00 Temperature Pulse Rate 140 H 155 H 155 H Respiratory Rate 24 H Blood Pressure Pulse Oximetry 100 Oxygen Delivery Room Air 05/07/24 13:31 05/07/24 15:24 05/07/24 14:00 Temperature 98.6 F Pulse Rate 74 61 72 Respiratory Rate 20 Blood Pressure 119/59 L Pulse Oximetry 95 Oxygen Delivery
[2024-05-08] MEDS: cefTRIAXone 2 GM/NS 100 ML 2 GM/100 ML BAG IVPB (13:38)
[2024-05-08] MEDS: CEFEPIME 1 GM/NS 50 ML 1 GM/50 ML BAG IVPB ×2 (15:11→23:04)
--- NOTE | 2024-05-08 15:58 | PCPTNOTE ---
On 05/08/24, the student, [Arleen De La O], provided care and completed [facility] documentation on this patient. I have reviewed the student's documentation and agree with the findings.
[2024-05-08] MEDS: traZODone HCL 50 MG TABLET 100 MG PO (20:19)
[2024-05-08] MEDS: AMITRIPTYLINE HCL 25 MG TABLET PO (20:20)
[2024-05-09] VITALS (11 sets, daily range): BP systolic 125–142; BP diastolic 51–90; PULSE 51–66; RESP 18–51; TEMP 36.3–36.6; O2SAT 94–96
--- NOTE | 2024-05-09 08:22 | PM.IMPN ---
Progress Note: A&P Assessment and Plan (1) Sepsis: Code(s): A41.9 - Sepsis, unspecified organism Status: Acute (2) Acute UTI: Code(s): N39.0 - Urinary tract infection, site not specified Status: Acute (3) Atrial fibrillation with RVR: Code(s): I48.91 - Unspecified atrial fibrillation Status: Acute (4) Dehydration: Code(s): E86.0 - Dehydration Status: Acute Plan Patient is a 8 74-year-old with history of anxiety, hypertension, hyperlipidemia complaining of weakness and tiredness since Sunday. Patient also noted rapid heart rate. No previous history of any coronary disease no history of any atrial fibrillation in the past patient also has been complaining of some urgency and frequency of urination # Sepsis related to UTI. WBCs 28 Emmanuel admission continues to improve Urine cultures and sensitivity With Klebsiella aerogenes. Sensitivity pending currently on IV cefepime. Was treated with IV ceftriaxone prior to this. # bacteremia with Gram-negative bacilli identified as Klebs aerogenes (enterobacer) sensitivity pending Urine culture with Gram-negative bacilli to be identified Patient currently on cefepime. Will switch to levofloxacin oral. # thrombocytopenia could be from sepsis. Will continue to monitor. # AFIB/non-STEMI initial heart rate of 170s on presentation. TSH is normal Echo with ejection fraction no significant valvular disease. Mild pulmonary hypertension. On February Chads Vasc 3 started anticoagulation Lovenox Transition to NOAC Echo results 1. Left ventricular chamber dimension is normal. 2. Left ventricular systolic function is normal, estimated at 65-70%. 3. There is mildly increased left ventricular wall thickness. 4. The left ventricular diastolic function is abnormal. 5. Left atrial chamber dimension is moderately enlarged. 6. There is mild mitral valve regurgitation. 7. The mitral valve annulus is mildly calcified. 8. There is mild tricuspid valve regurgitation. 9. Mild pulmonary hypertension, estimated pulmonary arterial systolic pressure is 42 mmHg. # elevated troponin Minimally elevated and flat trajectory. Likely demand ischemia from sepsis JAVIER and proximal atrial fibrillation. Echo with no wall motion abnormalities noted. # JAVIER, hypokalemia, hyponatremia cause dehydration/Barrett inhibitors /sepsis serum creatinine 2.0 on admission continues to improve Baseline creatinine unknown # mild right hydronephrosis and hydroureter noted on CT on 05/06/2024. 2 mm nonobstructing left kidney stone . Will consult Urology #History of depression continue Abilify and Elavil., trazodone, Zoloft #DVT prophylaxis. Lovenox # code status full code Subjective Date/time seen: 05/09/24 08:22 Interval history: chart reviewed. Feeling better. No new complaints. Review of Systems Review of Systems: All systems reviewed & are unremarkable except as noted in HPI and below Exam Narrative: GENERAL: Pleasant, in no acute distress. Well-nourished. - EYES: EOMI. Anicteric. - HENT: Moist mucous membranes. - LUNGS: Clear to auscultation bilaterally, no wheezing, rhonchi, or rales. - CARDIOVASCULAR: Irregular irregular rhythm No murmur. No JVD. - ABDOMEN: Soft, non-tender and non-distended. No palpable masses. - EXTREMITIES: No edema. Peripheral pulses 2+. Non-tender. - NEUROLOGIC: No focal neurological deficits. CN II-XII grossly intact. - PSYCHIATRIC: Awake, Alert and oriented x 3. Appropriate mood and affect. - SKIN: No rashes or lesions. Warm. - LYMPH: No cervical lymphadenopathy. Objective Data Vital Signs Vital Signs: Vital Signs - 24 hr 05/08/24 09:04 05/08/24 10:00 05/08/24 12:07 Temperature Pulse Rate 59 L 63 Respiratory Rate Blood Pressure Pulse Oximetry Oxygen Delivery Room Air 05/08/24 12:00 05/08/24 12:00 05/08/24 14:00 Temperature 97.4 F L Pulse Rate 60 68
[2024-05-09 08:50] LABS: Basophils Percent Auto 0.3 % (0.2-1.2); Eosinophils Absolute Auto 0.3 K/mm3 (0-0.3); Eosinophils Percent Auto 1.8 % (0-4.4); Hematocrit 30.7 % (37.0-47.0); Hemoglobin 10.6 g/dL (12.0-15.0); Immature Granulocyte Absolute 0.22 K/mm3 (0.00-0.031); Immature Granulocyte Percent A 1.5 % (0-0.5); Immature Platelet Fraction Pct 5.5 % (0.9-11.2); Lymphocytes Absolute Auto 1.13 K/mm3 (0.9-3.2); Lymphocytes Percent Auto 7.6 % (18.3-44.2); Mean Corpuscular HGB Conc 34.5 g/dl (32-36); Mean Corpuscular Hemoglobin 31.4 pg (26-34); Mean Corpuscular Volume 90.8 fl (80-100); Mean Platelet Volume 11.5 fl (7.4-10.4); Monocytes Absolute Auto 1.2 K/mm3 (0.1-0.6); Monocytes Percent Auto 8.3 % (2.6-8.5); Neutrophils Percent Auto 80.5 % (45.5-73.1); Platelet Count Result 110 k/mm3 (150-375); Red Blood Count 3.38 M/mm3 (4.2-5.4); Red Cell Distribution Width 13.2 % (11.5-14.5); White Blood Count 14.9 K/mm3 (4.5-10.0)
--- NOTE | 2024-05-09 09:11 | WPDURCON ---
Assessment and Plan Assessment and plan (1) Sepsis: Code(s): A41.9 - Sepsis, unspecified organism Status: Acute Assessment and Plan: Septic on presentation, felt to be secondary to UTI. Continue IV fluids, empiric antibiotics, management per primary team (2) Acute UTI: Code(s): N39.0 - Urinary tract infection, site not specified Status: Acute Assessment and Plan: Preliminary urine culture with growth of Gram-negative bacilli. Continue empiric antibiotics, tailor to pending culture (3) Hydronephrosis, right: Code(s): N13.30 - Unspecified hydronephrosis Status: Acute Assessment and Plan: Mild right hydronephrosis and hydroureter noted on CT 05/06/2024. No obstructing stone visible. Patient reports that she is voiding without difficulty. Follow-up renal ultrasound has been ordered to assess for resolution. Further recommendations pending results (4) Acute kidney injury: Code(s): N17.9 - Acute kidney failure, unspecified Status: Acute Assessment and Plan: Baseline creatinine levels are unknown. Creatinine has improved during admission to 1.5 today Urology Consult Note HPI Date Seen: 05/09/24 Requesting Physician: Polo Boss MD Primary Care Provider: FINANCE PROFESSOR PHYSICIAN Consult Narrative Narrative: Roselia Maddox is a 74 year old female with history of kidney stones who is currently admitted for sepsis secondary to UTI and is being seen in consultation for evaluation of hydronephrosis. Patient presented to the emergency department on 05/06/2024 with complaints of generally feeling unwell. On arrival, she was afebrile, her vital signs were stable, WBC was markedly elevated at 28.1, creatinine 2.0, UA with 3+ leukocytes, negative nitrates, >100 WBC, and 4+ bacteria. CT of the abdomen/pelvis without contrast was completed which showed mild right hydronephrosis and hydroureter without evidence of stones, cortical thinning of left kidney with 2 mm nonobstructing left renal stone. Her preliminary urine culture has growth of Gram-negative bacilli and blood cultures with growth of Klebsiella aerogenes. At the time of my evaluation, the patient reports that she is feeling well. Her white blood cell count has improved. Creatinine down to 1.5. She remains afebrile. She denies flank pain or back pain. Reports she is voiding without difficulty denies concerns for retention. Denies dysuria, hematuria urgency, or frequency. She reports history of kidney stones requiring ESWL many years ago in [place], but reports no recent issues. She is a fair historian. Review of Systems Review of Systems: All systems reviewed & are unremarkable except as noted in HPI and below PMFSH Past Medical History Medical History (Updated 05/09/24 @ 09:21 by Liz Petty PA-C) Kidney stones Surgical History Surgical History (Updated 05/09/24 @ 09:21 by Liz Petty PA-C) History of lithotripsy Family History Family History Mother Oat cell carcinoma Sibling Cancer Daughter Cancer Social History Social History Smoking status: Never smoker Alcohol intake: never Substance use: never Substance use type: does not use Do You Feel Safe in your Home?: Yes Lack of Transportation: No Lack of Food: Never True Current Housing: I Have Housing Concerned About Future Housing: No Difficulty Paying Gas/Electric Bills: No Difficulty Paying for Meds: No Currently Unemployed: No Education: High School Diploma/GED Difficulty w/ Childcare or Family Care: No Spiritual care concerns: No Meds Home Medications and Allergies Home Medications Medication Instructions Recorded Confirmed Type albuterol sulfate 90 mcg/actuation 2 puff inhalation QID PRN Allergy 05/07/24 05/07/24 History aerosol inhaler Symptoms
[2024-05-09 09:12] LABS: Alanine Aminotransferase 33 U/L (6-35); Albumin Level 2.8 g/dL (3.5-5.1); Alkaline Phosphatase 89 U/L (38-126); Anion Gap 8 mmol/L (4-12); Aspartate Amino Transferase 53 U/L (14-36); Bilirubin,Total 0.8 mg/dL (0.2-1.3); Blood Urea Nitrogen 38 mg/dL (7-17); Calcium 8.5 mg/dL (8.4-10.2); Carbon Dioxide 18 mmol/L (22-30); Chloride 110 mmol/L (98-107); Creatine Kinase 55 U/L (30-135); Estimated CRCL calculation 31 ml/min; Estimated Glomerular Filt Rate 34; Glucose 130 mg/dL (65-110); Magnesium 1.7 mg/dL (1.6-2.3); Potassium 3.4 mmol/L (3.4-5.0); Sodium 136 mmol/L (137-145)
[2024-05-09] MEDS: ATORVASTATIN 40 MG TABLET PO (09:49)
[2024-05-09] MEDS: TOPIRAMATE 25 MG TABLET PO (09:49)
[2024-05-09] MEDS: METOPROLOL SUCCINATE EXT REL 25 MG, METOPROLOL SUCCINATE EXT REL 50 MG 75 MG PO (09:49)
[2024-05-09] MEDS: PANTOPRAZOLE 40 MG TABLET PO (09:49)
[2024-05-09] MEDS: CEFEPIME 1 GM/NS 50 ML 1 GM/50 ML BAG IVPB (09:49)
[2024-05-09] MEDS: ARIPiprazole 5 MG TABLET PO (09:49)
[2024-05-09] MEDS: SERTRALINE HCL 50 MG TABLET 100 MG PO (09:49)
[2024-05-09] MEDS: FENOFIBRATE,MICRONIZED 48 MG TABLET PO (09:50)
[2024-05-09] MEDS: POTASSIUM CHLORIDE 20 MEQ PACKET (FOR LIQUID) PO ×2 (09:50→17:07)
--- NOTE | 2024-05-09 10:06 | PM.PNCARD ---
Progress Note: A&P Assessment and Plan (1) Atrial fibrillation with RVR: Code(s): I48.91 - Unspecified atrial fibrillation Status: Acute Assessment and Plan: Paroxysmal atrial fibrillation. New diagnosis for the patient. TSH level normal. Echocardiogram showed normal LVSF, no significant valve disease Will decrease Toprol XL to 25mg daily as she is back in sinus rhythm Treat underlying sepsis. [id number] of 3 for age, gender, hypertension. Anticoagulation for stroke risk reduction indicated. Discussed with patient, including risks vs benefits. Patient agreeable. Continue therapeutic Lovenox for now, transition to NOAC prior to discharge and if her thrombocytopenia stays stable (thrombocytopenia likely due to sepsis). She will need an outpatient sleep study. Cardiology will sign off. Will arrange for outpatient follow up. Please call with any questions. (2) Sepsis: Code(s): A41.9 - Sepsis, unspecified organism Status: Acute Assessment and Plan: Management as per primary team. (3) Acute kidney injury: Code(s): N17.9 - Acute kidney failure, unspecified Status: Acute Assessment and Plan: Baseline not known. Likely due to sepsis. (4) Elevated troponin: Code(s): R79.89 - Other specified abnormal findings of blood chemistry Status: Acute Assessment and Plan: Minimally elevated and flat. Likely demand ischemia from PAF with RVR, sepsis, JAVIER. Does not appear to be an acute coronary syndrome. Echocardiogram pending. Plan Recommendations and plan discussed with Hospitalist. Subjective Date/time seen: 05/09/24 10:06 Interval history: Cardiology follow-up for atrial fibrillation Date of service 05/08/2024: Telemetry shows atrial fibrillation with rate controlled in the 60s. Feeling better this morning, no palpitations, chest pain, shortness of breath. Date of service 05/09/2024: Feeling better today. Back in sinus rhythm. Review of Systems Review of Systems: All systems reviewed & are unremarkable except as noted in HPI and below (HPI) Exam Const: General: no acute distress Other: Ill appearing female HENMT: Mouth: Yes moist mucous membranes Eyes: General: appearance normal, both eyes and all related structures Sclera: sclerae normal Resp: Effort & Inspection: normal respiratory effort Auscultation: clear to auscultation bilaterally Cardio: Rate: regular rate Rhythm: regular rhythm Heart sounds: no murmurs Skin: General skin exam: normal color Other: no edema Neuro: Speech: normal speech Psych: Mental Status: mental status grossly normal Affect: normal affect Objective Data Vital Signs Vital Signs: Vital Signs - 24 hr 05/08/24 12:07 05/08/24 12:00 05/08/24 12:00 Temperature 36.3 C L Pulse Rate 63 60 68 Respiratory Rate 22 H Blood Pressure 120/68 Pulse Oximetry 96 Oxygen Delivery 05/08/24 14:00 05/08/24 16:00 05/08/24 16:00 Temperature 36.6 C Pulse Rate 60 59 L 64 Respiratory Rate 18 Blood Pressure 117/56 L Pulse Oximetry 96 Oxygen Delivery 05/08/24 18:03 05/08/24 18:00 05/08/24 19:59 Temperature 36.7 C Pulse Rate 68 70 64 Respiratory Rate 19 Blood Pressure 119/89 Pulse Oximetry 93 Oxygen Delivery 05/08/24 20:00 05/08/24 20:00 05/08/24 23:04 Temperature Pulse Rate 61 61 68 Respiratory Rate 19 Blood Pressure Pulse Oximetry 93 Oxygen Delivery Room Air 05/08/24 22:00 05/08/24 23:12 05/08/24 23:12 Temperature Pulse Rate 66 62 62 Respiratory Rate 19 Blood Pressure Pulse Oximetry 93 Oxygen Delivery Room Air 05/08/24 21:20 05/09/24 00:00 05/09/24 01:39 Temperature 36.5 C Pulse Rate 66 64 Respiratory Rate 18 Blood Pressure 139/58 L Pulse Oximetry 93 96 Oxygen Delivery Room Air 05/09/24 04:00 05/09/24 04:00 05/09/24 04:00 Temperature 36.5 C Pulse Rate 64 64 62 Respiratory Rate
[2024-05-09] MEDS: levoFLOXacin 750 MG TABLET PO (17:07)
[2024-05-09] MEDS: traZODone HCL 50 MG TABLET 100 MG PO (20:46)
[2024-05-09] MEDS: AMITRIPTYLINE HCL 25 MG TABLET PO (20:46)
[2024-05-10] VITALS (8 sets, daily range): BP systolic 129–147; BP diastolic 53–67; PULSE 52–62; RESP 12–28; TEMP 36.3–36.9; O2SAT 95–100
[2024-05-10] MEDS: ACETAMINOPHEN 500 MG TABLET 1000 MG PO (00:35)
[2024-05-10 05:42] LABS: Basophils Percent Auto 0.3 % (0.2-1.2); Eosinophils Absolute Auto 0.3 K/mm3 (0-0.3); Eosinophils Percent Auto 1.6 % (0-4.4); Hematocrit 28.6 % (37.0-47.0); Hemoglobin 9.7 g/dL (12.0-15.0); Immature Granulocyte Percent A 2.6 % (0-0.5); Lymphocytes Absolute Auto 1.39 K/mm3 (0.9-3.2); Lymphocytes Percent Auto 9.1 % (18.3-44.2); Mean Corpuscular HGB Conc 33.9 g/dl (32-36); Mean Corpuscular Volume 91.4 fl (80-100); Mean Platelet Volume 10.9 fl (7.4-10.4); Monocytes Absolute Auto 1.1 K/mm3 (0.1-0.6); Monocytes Percent Auto 6.9 % (2.6-8.5); Neutrophils Absolute Auto 12.1 K/mm3 (1.3-6.7); Neutrophils Percent Auto 79.5 % (45.5-73.1); Platelet Count Result 116 k/mm3 (150-375); Red Blood Count 3.13 M/mm3 (4.2-5.4); Red Cell Distribution Width 13.5 % (11.5-14.5); White Blood Count 15.2 K/mm3 (4.5-10.0)
[2024-05-10 05:57] LABS: Alanine Aminotransferase 37 U/L (6-35); Albumin Level 2.5 g/dL (3.5-5.1); Alkaline Phosphatase 87 U/L (38-126); Anion Gap 8 mmol/L (4-12); Aspartate Amino Transferase 53 U/L (14-36); Bilirubin,Total 0.6 mg/dL (0.2-1.3); Blood Urea Nitrogen 34 mg/dL (7-17); Calcium 8.7 mg/dL (8.4-10.2); Carbon Dioxide 19 mmol/L (22-30); Chloride 109 mmol/L (98-107); Estimated CRCL calculation 32 ml/min; Estimated Glomerular Filt Rate 34; Glucose 140 mg/dL (65-110); Magnesium 1.7 mg/dL (1.6-2.3); Potassium 3.4 mmol/L (3.4-5.0); Sodium 136 mmol/L (137-145)
[2024-05-10] MEDS: ARIPiprazole 5 MG TABLET PO (09:37)
[2024-05-10] MEDS: SERTRALINE HCL 50 MG TABLET 100 MG PO (09:37)
[2024-05-10] MEDS: METOPROLOL SUCCINATE EXT REL 25 MG, METOPROLOL SUCCINATE EXT REL 50 MG 75 MG PO (09:37)
[2024-05-10] MEDS: FENOFIBRATE,MICRONIZED 48 MG TABLET PO (09:37)
[2024-05-10] MEDS: PANTOPRAZOLE 40 MG TABLET PO (09:37)
[2024-05-10] MEDS: ATORVASTATIN 40 MG TABLET PO (09:37)
[2024-05-10] MEDS: TOPIRAMATE 25 MG TABLET PO (09:37)
[2024-05-10] MEDS: POTASSIUM CHLORIDE 20 MEQ PACKET (FOR LIQUID) PO ×2 (09:38→18:17)
--- NOTE | 2024-05-10 13:07 | PM.IMPN ---
Progress Note: A&P Assessment and Plan (1) Sepsis: Code(s): A41.9 - Sepsis, unspecified organism Status: Acute (2) Acute UTI: Code(s): N39.0 - Urinary tract infection, site not specified Status: Acute (3) Atrial fibrillation with RVR: Code(s): I48.91 - Unspecified atrial fibrillation Status: Acute (4) Dehydration: Code(s): E86.0 - Dehydration Status: Acute Plan Patient is a [age]-year-old with history of anxiety, hypertension, hyperlipidemia complaining of weakness and tiredness since Sunday. Patient also noted rapid heart rate. No previous history of any coronary disease no history of any atrial fibrillation in the past patient also has been complaining of some urgency and frequency of urination # Sepsis related to UTI. WBCs 28 Emmanuel admission continues to improve Urine cultures and sensitivity With Klebsiella aerogenes. Sensitivity pending currently on IV cefepime. Was treated with IV ceftriaxone prior to this. Switched to levofloxacin which is sensitive on culture report # bacteremia with Gram-negative bacilli identified as Klebs aerogenes (enterobacer) sensitivity pending Urine culture with Gram-negative bacilli to be identified Patient currently on cefepime. Will switch to levofloxacin oral. # thrombocytopenia could be from sepsis. Will continue to monitor. # AFIB/non-STEMI initial heart rate of 170s on presentation. TSH is normal Echo with ejection fraction no significant valvular disease. Mild pulmonary hypertension. On February Chads Vasc 3 started anticoagulation Lovenox Transition to NOAC Echo results 1. Left ventricular chamber dimension is normal. 2. Left ventricular systolic function is normal, estimated at 65-70%. 3. There is mildly increased left ventricular wall thickness. 4. The left ventricular diastolic function is abnormal. 5. Left atrial chamber dimension is moderately enlarged. 6. There is mild mitral valve regurgitation. 7. The mitral valve annulus is mildly calcified. 8. There is mild tricuspid valve regurgitation. 9. Mild pulmonary hypertension, estimated pulmonary arterial systolic pressure is 42 mmHg. # elevated troponin Minimally elevated and flat trajectory. Likely demand ischemia from sepsis JAVIER and proximal atrial fibrillation. Echo with no wall motion abnormalities noted. # JAVIER, hypokalemia, hyponatremia cause dehydration/Barrett inhibitors /sepsis serum creatinine 2.0 on admission continues to improve Baseline creatinine unknown # mild right hydronephrosis and hydroureter noted on CT on 05/06/2024. 2 mm nonobstructing left kidney stone . consulted Urology. Repeat renal ultrasound negative for hydronephrosis on the shows mild right pelvicaliectasis #History of depression continue Abilify and Elavil., trazodone, Zoloft #DVT prophylaxis. Lovenox # code status full code Subjective Date/time seen: 05/10/24 13:07 Interval history: no overnight events. Arms are swollen at the IV site. Denies any abdominal pain nausea vomiting. Ambulates to the bathroom with walker. Review of Systems Review of Systems: All systems reviewed & are unremarkable except as noted in HPI and below Exam Narrative: General: Awake, alert, comfortable, no acute distress HEENT: Normocephalic, atraumatic, sclerae anicteric Respiratory: Normal respiratory effort, no accessory muscle use Abdomen: Nondistended, soft, nontender Skin: Normal coloration, warm and dry Neurologic: No focal neuro deficits noted Psychiatric: Appropriate mood and affect, judgment and insight intact Objective Data Vital Signs Vital Signs: Vital Signs - 24 hr 05/09/24 16:00 05/09/24 16:00 05/09/24 20:00 Temperature 97.3 F L 97.6 F Pulse Rate 51 L 61 61 Respiratory Rate 51 H 18 Blood Pressure 125/51 L 139/60 Pulse Oximetry 95 96 Oxygen Delivery 05/09/24 20:00 05/09/24 20:00 05/09/24 23:14 Temperature
[2024-05-10] MEDS: traZODone HCL 50 MG TABLET 100 MG PO (21:14)
[2024-05-10] MEDS: AMITRIPTYLINE HCL 25 MG TABLET PO (21:14)
[2024-05-10] MEDS: APIXABAN 5 MG TABLET PO (21:14)
--- NOTE | 2024-05-10 22:57 | PC.NURSE ---
pt has been transfered to room 313-02
--- NOTE | 2024-05-10 23:29 | PC.NURSE ---
This patient, Roselia Maddox, was transferred to [facility] on 05/10/24 at 2255. Personal belongings sent with patient. Report given to RN. Appropriate documentation sent with patient.
[2024-05-11 06:15] VITALS: BP 141/52; PULSE 60; RESP 12; TEMP 36.1; O2SAT 94
[2024-05-11 07:08] LABS: Alanine Aminotransferase 29 U/L (6-35); Albumin Level 2.5 g/dL (3.5-5.1); Alkaline Phosphatase 90 U/L (38-126); Anion Gap 7 mmol/L (4-12); Aspartate Amino Transferase 33 U/L (14-36); Bilirubin,Total 0.7 mg/dL (0.2-1.3); Blood Urea Nitrogen 27 mg/dL (7-17); Calcium 8.9 mg/dL (8.4-10.2); Carbon Dioxide 23 mmol/L (22-30); Chloride 104 mmol/L (98-107); Estimated CRCL calculation 38 ml/min; Estimated Glomerular Filt Rate 40; Glucose 155 mg/dL (65-110); Magnesium 1.7 mg/dL (1.6-2.3); Potassium 3.8 mmol/L (3.4-5.0); Sodium 134 mmol/L (137-145)
[2024-05-11 07:09] LABS: Basophils Absolute Auto 0.1 K/mm3 (0.0-0.1); Basophils Percent Auto 0.4 % (0.2-1.2); Eosinophils Absolute Auto 0.2 K/mm3 (0-0.3); Eosinophils Percent Auto 1.4 % (0-4.4); Hematocrit 32.1 % (37.0-47.0); Hemoglobin 10.5 g/dL (12.0-15.0); Immature Granulocyte Absolute 0.46 K/mm3 (0.00-0.031); Immature Granulocyte Percent A 2.9 % (0-0.5); Lymphocytes Percent Auto 11.3 % (18.3-44.2); Mean Corpuscular HGB Conc 32.7 g/dl (32-36); Mean Corpuscular Hemoglobin 30.6 pg (26-34); Mean Corpuscular Volume 93.6 fl (80-100); Mean Platelet Volume 11.3 fl (7.4-10.4); Monocytes Absolute Auto 0.8 K/mm3 (0.1-0.6); Monocytes Percent Auto 5.1 % (2.6-8.5); Neutrophils Absolute Auto 12.5 K/mm3 (1.3-6.7); Neutrophils Percent Auto 78.9 % (45.5-73.1); Platelet Count Result 160 k/mm3 (150-375); Red Blood Count 3.43 M/mm3 (4.2-5.4); Red Cell Distribution Width 13.4 % (11.5-14.5); White Blood Count 15.9 K/mm3 (4.5-10.0)
[2024-05-11 08:10] VITALS: BP 138/58; PULSE 54; O2SAT 95
[2024-05-11] MEDS: APIXABAN 5 MG TABLET PO ×2 (08:14→21:30)
[2024-05-11] MEDS: SERTRALINE HCL 50 MG TABLET 100 MG PO (08:14)
[2024-05-11] MEDS: levoFLOXacin 750 MG TABLET PO (08:14)
[2024-05-11] MEDS: ATORVASTATIN 40 MG TABLET PO (08:14)
[2024-05-11 08:15] VITALS: PULSE 54
[2024-05-11] MEDS: POTASSIUM CHLORIDE 20 MEQ PACKET (FOR LIQUID) PO ×2 (08:15→17:06)
[2024-05-11] MEDS: PANTOPRAZOLE 40 MG TABLET PO (08:15)
[2024-05-11] MEDS: TOPIRAMATE 25 MG TABLET PO (08:15)
[2024-05-11] MEDS: ARIPiprazole 5 MG TABLET PO (08:15)
[2024-05-11] MEDS: METOPROLOL SUCCINATE EXT REL 25 MG, METOPROLOL SUCCINATE EXT REL 50 MG 75 MG PO (08:15)
[2024-05-11] MEDS: FENOFIBRATE,MICRONIZED 48 MG TABLET PO (08:15)
--- NOTE | 2024-05-11 10:58 | PCSTNOTE ---
Please refer to the Bedside Swallow Evaluation in the EMR. Please note, silent aspiration cannot be ruled out at bedside.
[2024-05-11] MEDS: MEROPENEM 1 GM/NS 100 ML 1 GM/100 ML BAG IVPB ×2 (12:30→21:31)
--- NOTE | 2024-05-11 12:37 | PM.IMPN ---
Progress Note: A&P Assessment and Plan (1) Sepsis: Code(s): A41.9 - Sepsis, unspecified organism Status: Acute (2) Acute UTI: Code(s): N39.0 - Urinary tract infection, site not specified Status: Acute (3) Atrial fibrillation with RVR: Code(s): I48.91 - Unspecified atrial fibrillation Status: Acute (4) Dehydration: Code(s): E86.0 - Dehydration Status: Acute Plan Patient is a [age]-year-old with history of anxiety, hypertension, hyperlipidemia complaining of weakness and tiredness since Sunday. Patient also noted rapid heart rate. No previous history of any coronary disease no history of any atrial fibrillation in the past patient also has been complaining of some urgency and frequency of urination # Sepsis related to UTI. WBCs 28 Emmanuel admission continues to improve Urine cultures and sensitivity With Klebsiella aerogenes. Sensitivity pending currently on IV cefepime. Was treated with IV ceftriaxone prior to this. Switched to levofloxacin which is sensitive on culture report. Leukocytosis still persists with switched to meropenem # bacteremia with Gram-negative bacilli identified as Klebs aerogenes (enterobacer) sensitivity pending Urine culture with Gram-negative bacilli to be identified Patient currently on cefepime. Will switch to levofloxacin oral. # thrombocytopenia could be from sepsis. Will continue to monitor. # AFIB/non-STEMI initial heart rate of 170s on presentation. TSH is normal Echo with ejection fraction no significant valvular disease. Mild pulmonary hypertension. On February Chads Vasc 3 started anticoagulation Lovenox Transition to NOAC Echo results 1. Left ventricular chamber dimension is normal. 2. Left ventricular systolic function is normal, estimated at 65-70%. 3. There is mildly increased left ventricular wall thickness. 4. The left ventricular diastolic function is abnormal. 5. Left atrial chamber dimension is moderately enlarged. 6. There is mild mitral valve regurgitation. 7. The mitral valve annulus is mildly calcified. 8. There is mild tricuspid valve regurgitation. 9. Mild pulmonary hypertension, estimated pulmonary arterial systolic pressure is 42 mmHg. # elevated troponin Minimally elevated and flat trajectory. Likely demand ischemia from sepsis JAVIER and proximal atrial fibrillation. Echo with no wall motion abnormalities noted. # JAVIER, hypokalemia, hyponatremia cause dehydration/Barrett inhibitors /sepsis serum creatinine 2.0 on admission continues to improve Baseline creatinine unknown # mild right hydronephrosis and hydroureter noted on CT on 05/06/2024. 2 mm nonobstructing left kidney stone . consulted Urology. Repeat renal ultrasound negative for hydronephrosis on the shows mild right pelvicaliectasis #History of depression continue Abilify and Elavil., trazodone, Zoloft #DVT prophylaxis. Lovenox # code status full code Subjective Date/time seen: 05/11/24 12:37 Interval history: No overnight events. Feels well. Still has her discomfort on her right groin area. Arm swelling has improved. Leukocytosis still persist for Review of Systems Review of Systems: All systems reviewed & are unremarkable except as noted in HPI and below Exam Narrative: General: Awake, alert, comfortable, no acute distress HEENT: Normocephalic, atraumatic, sclerae anicteric Respiratory: Normal respiratory effort, no accessory muscle use Abdomen: Nondistended, soft, nontender Skin: Normal coloration, warm and dry Neurologic: No focal neuro deficits noted Psychiatric: Appropriate mood and affect, judgment and insight intact Objective Data Vital Signs Vital Signs: Vital Signs - 24 hr 05/10/24 16:00 05/10/24 19:53 05/10/24 20:00 Temperature 98.4 F 98.4 F Pulse Rate 56 L 62 Respiratory Rate 12 16 Blood Pressure 134/61 138/64 Pulse Oximetry 100 100 Oxygen Delivery Room Air 0
[2024-05-11 14:00] VITALS: BP 136/62; PULSE 62; RESP 16; TEMP 36.4; O2SAT 96
[2024-05-11 20:05] VITALS: BP 159/56; PULSE 64; RESP 17; TEMP 36.2; O2SAT 94
[2024-05-11] MEDS: traZODone HCL 50 MG TABLET 100 MG PO (21:30)
[2024-05-11] MEDS: AMITRIPTYLINE HCL 25 MG TABLET PO (21:30)
[2024-05-12] MEDS: MEROPENEM 1 GM/NS 100 ML 1 GM/100 ML BAG IVPB ×3 (05:16→22:27)
[2024-05-12 06:00] VITALS: BP 142/56; PULSE 58; RESP 17; TEMP 36.5; O2SAT 96
[2024-05-12 06:26] LABS: Basophils Percent Auto 0.3 % (0.2-1.2); Eosinophils Absolute Auto 0.2 K/mm3 (0-0.3); Eosinophils Percent Auto 1.1 % (0-4.4); Hematocrit 29.6 % (37.0-47.0); Hemoglobin 9.7 g/dL (12.0-15.0); Immature Granulocyte Percent A 2.7 % (0-0.5); Lymphocytes Absolute Auto 1.52 K/mm3 (0.9-3.2); Lymphocytes Percent Auto 10.1 % (18.3-44.2); Mean Corpuscular HGB Conc 32.8 g/dl (32-36); Mean Corpuscular Hemoglobin 30.9 pg (26-34); Mean Corpuscular Volume 94.3 fl (80-100); Mean Platelet Volume 10.8 fl (7.4-10.4); Monocytes Absolute Auto 0.7 K/mm3 (0.1-0.6); Monocytes Percent Auto 4.7 % (2.6-8.5); Neutrophils Absolute Auto 12.2 K/mm3 (1.3-6.7); Neutrophils Percent Auto 81.1 % (45.5-73.1); Platelet Count Result 171 k/mm3 (150-375); Red Blood Count 3.14 M/mm3 (4.2-5.4); Red Cell Distribution Width 13.2 % (11.5-14.5); White Blood Count 15.1 K/mm3 (4.5-10.0)
[2024-05-12 06:39] LABS: Alanine Aminotransferase 23 U/L (6-35); Albumin Level 2.6 g/dL (3.5-5.1); Alkaline Phosphatase 71 U/L (38-126); Anion Gap 4 mmol/L (4-12); Aspartate Amino Transferase 23 U/L (14-36); Bilirubin,Total 0.7 mg/dL (0.2-1.3); Blood Urea Nitrogen 24 mg/dL (7-17); Calcium 8.8 mg/dL (8.4-10.2); Carbon Dioxide 26 mmol/L (22-30); Chloride 103 mmol/L (98-107); Estimated CRCL calculation 35 ml/min; Estimated Glomerular Filt Rate 37; Glucose 154 mg/dL (65-110); Magnesium 1.5 mg/dL (1.6-2.3); Potassium 4.6 mmol/L (3.4-5.0); Sodium 133 mmol/L (137-145)
[2024-05-12 06:52] LABS: Atypical Lymphocytes Present; Hypochromasia 1+; Platelet Estimate Adequate (Adequate); Schistocytes None Seen
[2024-05-12] MEDS: POTASSIUM CHLORIDE 20 MEQ PACKET (FOR LIQUID) PO ×2 (08:37→16:48)
[2024-05-12] MEDS: ARIPiprazole 5 MG TABLET PO (08:38)
[2024-05-12] MEDS: ATORVASTATIN 40 MG TABLET PO (08:38)
[2024-05-12] MEDS: PANTOPRAZOLE 40 MG TABLET PO (08:38)
[2024-05-12] MEDS: SERTRALINE HCL 50 MG TABLET 100 MG PO (08:38)
[2024-05-12] MEDS: TOPIRAMATE 25 MG TABLET PO (08:38)
[2024-05-12 08:39] VITALS: PULSE 56
[2024-05-12] MEDS: APIXABAN 5 MG TABLET PO ×2 (08:39→22:26)
[2024-05-12] MEDS: METOPROLOL SUCCINATE EXT REL 25 MG, METOPROLOL SUCCINATE EXT REL 50 MG 75 MG PO (08:39)
[2024-05-12] MEDS: FENOFIBRATE,MICRONIZED 48 MG TABLET PO (08:39)
[2024-05-12] MEDS: MAGNESIUM SULF 1 GM/D5W 100 ML 1 GM/100 ML BAG IVPB (08:45)
--- NOTE | 2024-05-12 12:41 | PCNFU ---
Nutrition Follow-Up Complete: Inadequate oral intake related to loss of appetite as evidenced by intakes charted 5% Goal:Adequate PO intake at least 75% meals and supplements Pt meeting goal at this time, continue with same goal Pt current nutrition is Heart healthy, Ensure compact BID. Nutrition recommendation: continue with current plan of care Last recorded weight is 84.6 kg. Bowel Motility: +BM 05/11 Labs Reviewed:Hgb:9.7, HCT:29.6, Alb:2.6, NA:133, GFR:37, BUN:24, Cr:1.4 Meds Noted: eliqius, protonix Skin: no skin issues noted Additional Notes: Pt continues on a heart healthy diet, intake has improved to 50-100% at this time, Ensure compact BID in place. Encourage good po intake to continue. Monitoring intakes, weights, labs, supplement tolerance, plan of care Follow up in 5 days
[2024-05-12 14:00] VITALS: BP 135/54; PULSE 56; RESP 16; TEMP 36.4; O2SAT 95
--- NOTE | 2024-05-12 14:55 | PM.IMPN ---
Progress Note: A&P Assessment and Plan (1) Sepsis: Code(s): A41.9 - Sepsis, unspecified organism Status: Acute (2) Acute UTI: Code(s): N39.0 - Urinary tract infection, site not specified Status: Acute (3) Atrial fibrillation with RVR: Code(s): I48.91 - Unspecified atrial fibrillation Status: Acute (4) Dehydration: Code(s): E86.0 - Dehydration Status: Acute Plan Patient is a 8 74-year-old with history of anxiety, hypertension, hyperlipidemia complaining of weakness and tiredness since Sunday. Patient also noted rapid heart rate. No previous history of any coronary disease no history of any atrial fibrillation in the past patient also has been complaining of some urgency and frequency of urination # Sepsis related to UTI. WBCs 28 K On admission continues to improve Urine cultures and sensitivity With Klebsiella aerogenes. Sensitivity pending currently on IV cefepime. Was treated with IV ceftriaxone prior to this. Switched to levofloxacin which is sensitive on culture report. Leukocytosis still persists with switched to meropenem which has improved some today. # bacteremia with Gram-negative bacilli identified as Klebs aerogenes (enterobacer) sensitivity pending Urine culture with Gram-negative bacilli to be identified. On meropenem # thrombocytopenia could be from sepsis. Will continue to monitor. # AFIB/non-STEMI initial heart rate of 170s on presentation. TSH is normal Echo with ejection fraction no significant valvular disease. Mild pulmonary hypertension. On February Chads Vasc 3 started anticoagulation Lovenox Transition to NOAC Echo results 1. Left ventricular chamber dimension is normal. 2. Left ventricular systolic function is normal, estimated at 65-70%. 3. There is mildly increased left ventricular wall thickness. 4. The left ventricular diastolic function is abnormal. 5. Left atrial chamber dimension is moderately enlarged. 6. There is mild mitral valve regurgitation. 7. The mitral valve annulus is mildly calcified. 8. There is mild tricuspid valve regurgitation. 9. Mild pulmonary hypertension, estimated pulmonary arterial systolic pressure is 42 mmHg. # elevated troponin Minimally elevated and flat trajectory. Likely demand ischemia from sepsis JAVIER and proximal atrial fibrillation. Echo with no wall motion abnormalities noted. # JAVIER, hypokalemia, hyponatremia cause dehydration/Barrett inhibitors /sepsis serum creatinine 2.0 on admission continues to improve Baseline creatinine unknown # mild right hydronephrosis and hydroureter noted on CT on 05/06/2024. 2 mm nonobstructing left kidney stone . consulted Urology. Repeat renal ultrasound negative for hydronephrosis on the shows mild right pelvicaliectasis #History of depression continue Abilify and Elavil., trazodone, Zoloft #DVT prophylaxis. Lovenox # code status full code Subjective Date/time seen: 05/12/24 14:55 Interval history: No overnight events. Feels well. No new complaints Review of Systems Review of Systems: All systems reviewed & are unremarkable except as noted in HPI and below Exam Narrative: General: Awake, alert, comfortable, no acute distress HEENT: Normocephalic, atraumatic, sclerae anicteric Respiratory: Normal respiratory effort, no accessory muscle use Abdomen: Nondistended, soft, nontender Skin: Normal coloration, warm and dry Neurologic: No focal neuro deficits noted Psychiatric: Appropriate mood and affect, judgment and insight intact Objective Data Vital Signs Vital Signs: Vital Signs - 24 hr 05/11/24 20:05 05/11/24 21:26 05/12/24 06:00 Temperature 97.2 F L 97.7 F Pulse Rate 64 58 L Respiratory Rate 17 17 Blood Pressure 159/56 H 142/56 H Pulse Oximetry 94 96 Oxygen Delivery Room Air 05/12/24 08:39 05/12/24 14:00 Temperature 97.6 F Pulse Rate 56 L 56 L Respiratory Rate 16 Blood Press
--- NOTE | 2024-05-12 15:25 | WPDUROPN2 ---
Progress Note: A&P Assessment and Plan (1) Sepsis: Code(s): A41.9 - Sepsis, unspecified organism Status: Acute Assessment and Plan: Septic on presentation, felt to be secondary to UTI. Continue antibiotics, management per primary team (2) Acute UTI: Code(s): N39.0 - Urinary tract infection, site not specified Status: Acute Assessment and Plan: Urine culture with growth of Klebsiella aerogenes. Continue antibiotics tailored to culture (3) Hydronephrosis, right: Code(s): N13.30 - Unspecified hydronephrosis Status: Acute Assessment and Plan: Mild right hydronephrosis and hydroureter noted on CT 05/06/2024. No obstructing stone visible. Follow-up renal ultrasound completed on 05/09/2024 shows resolution of hydronephrosis with mild right pelviectasis a bladder within normal limits. No need for ongoing evaluation. May consider repeat renal ultrasound as an outpatient about a month to reassess. (4) Acute kidney injury: Code(s): N17.9 - Acute kidney failure, unspecified Status: Acute Assessment and Plan: Baseline creatinine levels are unknown. Creatinine has improved during admission to 1.4 today Subjective Subjective Date/Time Seen: 05/12/24 15:25 Interval history: Roselia is doing well today. She is resting comfortably in bed. Reports she is voiding without difficulty. Denies dysuria or hematuria. Review of Systems Review of Systems: All systems reviewed & are unremarkable except as noted in HPI and below Exam Narrative: General: Awake, alert, comfortable, no acute distress HEENT: Normocephalic, atraumatic, sclerae anicteric Respiratory: Normal respiratory effort, no accessory muscle use Abdomen: Nondistended, soft, nontender Skin: Normal coloration, warm and dry Neurologic: No focal neuro deficits noted Psychiatric: Appropriate mood and affect, judgment and insight intact Objective Data Vital Signs Vital Signs: Vital Signs - 24 hr 05/11/24 20:05 05/11/24 21:26 05/12/24 06:00 Temperature 97.2 F L 97.7 F Pulse Rate 64 58 L Respiratory Rate 17 17 Blood Pressure 159/56 H 142/56 H Pulse Oximetry 94 96 Oxygen Delivery Room Air 05/12/24 08:39 05/12/24 14:00 Temperature 97.6 F Pulse Rate 56 L 56 L Respiratory Rate 16 Blood Pressure 135/54 L Pulse Oximetry 95 Oxygen Delivery Intake/Output Intake/Output: Intake & Output 05/09/24 05/10/24 05/11/24 05/12/24 23:59 23:59 23:59 23:59 Intake Total 2800 1420 1546 420 Output Total 1999 1550 1999 1500 Balance 607 [phone] Meds/Results Medications: Active Medications Generic Name Dose Route Start Last Admin Trade Name Freq PRN Reason Stop Dose Admin Acetaminophen 1,000 mg 05/10/24 00:16 05/10/24 00:35 Acetaminophen 500 Mg Tablet PO 1,000 mg Q6H PRN Administration Mild Pain (1-3) or Fever Albuterol 2 puff 05/07/24 00:49 Albuterol Sulfate (*Sp) Aerosol 1 Puff INHALATION Q6HRT PRN Allergy Symptoms Amitriptyline HCl 25 mg 05/07/24 21:00 05/11/24 21:30 Amitriptyline Hcl 25 Mg Tablet PO 25 mg HS SHIRLEY Administration Apixaban 5 mg 05/10/24 21:00 05/12/24 08:39 Apixaban 5 Mg Tablet PO 5 mg Q12HR SHIRLEY Administration Aripiprazole 5 mg 05/07/24 09:00 05/12/24 08:38 Aripiprazole 5 Mg Tablet PO 5 mg DAILY SHIRLEY Administration Atorvastatin Calcium 40 mg 05/07/24 09:00 05/12/24 08:38 Atorvastatin 40 Mg Tablet PO 40 mg DAILY SHIRLEY Administration Fenofibrate 48 mg 05/07/24 09:00 05/12/24 08:39 Fenofibrate,Micronized 48 Mg Tablet PO 48 mg QAM SHIRLEY Administration Meropenem 1 gm in 100 mls @ 200 mls/hr 05/11/24 13:00 05/12/24 13:29 IVPB Infused Q8HR SHIRLEY Infusion Metoprolol Succinate 25 mg/ 75 mg 05/09/24 09:00 05/12/24 08:39 Metoprolol Succinate 50 mg PO 75 mg QAM SHIRLEY Administration Pantoprazole Sodium 40 mg 05/07/24 09:00 05/12
[2024-05-12 17:11] LABS: Appearance Urine Cloudy (Clear); Bacteria Urine None Seen /hpf; Bilirubin Urine Negative (Negative); Blood Urine 1+ (Negative); Color Urine Yellow (Yellow); Glucose Urine UA Negative (Negative); Ketones Urine Negative (Negative); Leukocyte Esterase Ur Trace LEU/UL (Negative); Need Manual Microscopic Reviewed; Nitrate Urine Negative (Negative); Non Pathogenic Casts 0-2; Protein Urine Trace mg/dL (Negative); Specific Grav Ur 1.011 (1.001-1.035); Squamous Epithelial Cell Urine Many /hpf (Few); pH Urine 6.5 (5.0-9.0)
[2024-05-12 17:12] LABS: Add Urine Microscopic? YES
[2024-05-12 20:40] VITALS: BP 138/59; PULSE 61; RESP 18; TEMP 36.5; O2SAT 96
[2024-05-12] MEDS: traZODone HCL 50 MG TABLET 100 MG PO (22:26)
[2024-05-12] MEDS: AMITRIPTYLINE HCL 25 MG TABLET PO (22:26)
[2024-05-13 04:45] VITALS: BP 149/68; PULSE 59; RESP 18; TEMP 35.7; O2SAT 96
[2024-05-13] MEDS: MEROPENEM 1 GM/NS 100 ML 1 GM/100 ML BAG IVPB ×2 (05:55→13:46)
[2024-05-13 06:47] LABS: Basophils Percent Auto 0.2 % (0.2-1.2); Eosinophils Absolute Auto 0.1 K/mm3 (0-0.3); Eosinophils Percent Auto 0.9 % (0-4.4); Hematocrit 29.7 % (37.0-47.0); Hemoglobin 9.6 g/dL (12.0-15.0); Immature Granulocyte Absolute 0.25 K/mm3 (0.00-0.031); Immature Granulocyte Percent A 1.8 % (0-0.5); Lymphocytes Absolute Auto 1.49 K/mm3 (0.9-3.2); Lymphocytes Percent Auto 10.8 % (18.3-44.2); Mean Corpuscular HGB Conc 32.3 g/dl (32-36); Mean Corpuscular Hemoglobin 30.3 pg (26-34); Mean Corpuscular Volume 93.7 fl (80-100); Mean Platelet Volume 10.6 fl (7.4-10.4); Monocytes Absolute Auto 0.7 K/mm3 (0.1-0.6); Monocytes Percent Auto 4.8 % (2.6-8.5); Neutrophils Absolute Auto 11.2 K/mm3 (1.3-6.7); Neutrophils Percent Auto 81.5 % (45.5-73.1); Platelet Count Result 204 k/mm3 (150-375); Red Blood Count 3.17 M/mm3 (4.2-5.4); Red Cell Distribution Width 12.7 % (11.5-14.5); White Blood Count 13.7 K/mm3 (4.5-10.0)
[2024-05-13 06:58] LABS: Alanine Aminotransferase 20 U/L (6-35); Albumin Level 2.7 g/dL (3.5-5.1); Alkaline Phosphatase 81 U/L (38-126); Anion Gap 4 mmol/L (4-12); Aspartate Amino Transferase 20 U/L (14-36); Bilirubin,Total 0.8 mg/dL (0.2-1.3); Blood Urea Nitrogen 24 mg/dL (7-17); Carbon Dioxide 28 mmol/L (22-30); Chloride 99 mmol/L (98-107); Estimated CRCL calculation 35 ml/min; Estimated Glomerular Filt Rate 37; Glucose 142 mg/dL (65-110); Magnesium 1.8 mg/dL (1.6-2.3); Potassium 4.6 mmol/L (3.4-5.0); Sodium 131 mmol/L (137-145)
[2024-05-13 08:59] VITALS: PULSE 74
[2024-05-13] MEDS: METOPROLOL SUCCINATE EXT REL 25 MG, METOPROLOL SUCCINATE EXT REL 50 MG 75 MG PO (08:59)
[2024-05-13] MEDS: ATORVASTATIN 40 MG TABLET PO (08:59)
[2024-05-13] MEDS: ARIPiprazole 5 MG TABLET PO (09:00)
[2024-05-13] MEDS: TOPIRAMATE 25 MG TABLET PO (09:00)
[2024-05-13] MEDS: APIXABAN 5 MG TABLET PO (09:00)
[2024-05-13] MEDS: FENOFIBRATE,MICRONIZED 48 MG TABLET PO (09:01)
[2024-05-13] MEDS: SERTRALINE HCL 50 MG TABLET 100 MG PO (09:01)
[2024-05-13] MEDS: PANTOPRAZOLE 40 MG TABLET PO (09:01)
[2024-05-13] MEDS: POTASSIUM CHLORIDE 20 MEQ PACKET (FOR LIQUID) PO (09:01)
--- NOTE | 2024-05-13 12:56 | PM.DS ---
DS: Admitting Diagnosis Discharge Date 05/13/2024 Admitting Diagnosis Generalized weakness DS: Discharge Diagnosis Discharge Diagnosis (1) Sepsis: Code(s): A41.9 - Sepsis, unspecified organism Status: Acute (2) Acute UTI: Code(s): N39.0 - Urinary tract infection, site not specified Status: Acute (3) Atrial fibrillation with RVR: Code(s): I48.91 - Unspecified atrial fibrillation Status: Acute (4) Dehydration: Code(s): E86.0 - Dehydration Status: Acute DS: Summary Hospital Course Hospital Course: Patient is a 8 74-year-old with history of anxiety, hypertension, hyperlipidemia complaining of weakness and tiredness since Sunday. Patient also noted rapid heart rate. No previous history of any coronary disease no history of any atrial fibrillation in the past patient also has been complaining of some urgency and frequency of urination # Sepsis related to UTI. WBCs 28 K On admission continues to improve Urine cultures and sensitivity With Klebsiella aerogenes. Initially was treated with ceftriaxone, with bacteremia was switched to cefepime. With sensitivity was switched back to levofloxacin however leukocytosis continue to worsen and hence needed to switch back to meropenem with which her leukocytosis continued to improve. She will be switched to Bactrim at discharge for. She will also have repeat labs done to follow-up on her leukocytosis. As an outpatient basis. # bacteremia with Gram-negative bacilli identified as Klebs aerogenes (enterobacer) sensitivity reviewed # thrombocytopenia could be from sepsis. Will continue to monitor. Thrombocytopenia resolved # AFIB/non-STEMI initial heart rate of 170s on presentation. TSH is normal Echo with ejection fraction no significant valvular disease. Mild pulmonary hypertension. On February Chads Vasc 3 started anticoagulation Lovenox Transition to NOAC Echo results 1. Left ventricular chamber dimension is normal. 2. Left ventricular systolic function is normal, estimated at 65-70%. 3. There is mildly increased left ventricular wall thickness. 4. The left ventricular diastolic function is abnormal. 5. Left atrial chamber dimension is moderately enlarged. 6. There is mild mitral valve regurgitation. 7. The mitral valve annulus is mildly calcified. 8. There is mild tricuspid valve regurgitation. 9. Mild pulmonary hypertension, estimated pulmonary arterial systolic pressure is 42 mmHg. Follow-up with cardiology as an outpatient basis # elevated troponin Minimally elevated and flat trajectory. Likely demand ischemia from sepsis JAVIER and proximal atrial fibrillation. Echo with no wall motion abnormalities noted. # JAVIER, hypokalemia, hyponatremia cause dehydration/Barrett inhibitors /sepsis serum creatinine 2.0 on admission continues to improve Baseline creatinine unknown # mild right hydronephrosis and hydroureter noted on CT on 05/06/2024. 2 mm nonobstructing left kidney stone . consulted Urology. Repeat renal ultrasound negative for hydronephrosis on the shows mild right pelvicaliectasis. Follow-up with Urology as an outpatient basis #History of depression continue Abilify and Elavil., trazodone, Zoloft #DVT prophylaxis. Lovenox # code status full code Time Spent with Patient Time attestation: Total time spent providing and/or coordinating discharge services: 33 minutes Exam Narrative: General: Awake, alert, comfortable, no acute distress HEENT: Normocephalic, atraumatic, sclerae anicteric Respiratory: Normal respiratory effort, no accessory muscle use Abdomen: Nondistended, soft, nontender Skin: Normal coloration, warm and dry Neurologic: No focal neuro deficits noted Psychiatric: Appropriate mood and affect, judgment and insight intact DS: Data Data Completed and Pending Completed studies during hospitalization: Exam Type: CA echo dop color flow w con Stud
[2024-05-13 14:00] VITALS: BP 133/62; PULSE 60; RESP 20; TEMP 36.6; O2SAT 97
== END 2024-05-13 15:55 | disposition home or self-care (01) | DRG 872 ==
LOC: ANHED 20:12 → ANHIMU 23:12 → ANH3MEDSUR 05-10 23:01
PROVIDERS: Admitting Provider Internal Medicine; Emergency Provider Emergency Medicine; Visit Provider Internal Medicine
DX: A41.89 Other specified sepsis (principal); N13.6 Pyonephrosis; E87.1 Hypo-osmolality and hyponatremia; N17.9 Acute kidney failure, unspecified; I24.89 Other forms of acute ischemic heart disease; I48.0 Paroxysmal atrial fibrillation; E86.0 Dehydration; D69.59 Other secondary thrombocytopenia; E87.6 Hypokalemia; F32.A Depression, unspecified; E78.5 Hyperlipidemia, unspecified; I10 Essential (primary) hypertension; F41.9 Anxiety disorder, unspecified
CPT/HCPCS: 36415; 71045; 74176; 76775; 80053; 80061; 81001; 82550; 83735; 84443; 84484; 85025; 85027; 85055; 85380; 87040; 87086; 87186; 92610; 93005; 96361; 96374; 96375; 97161; 99285; A9270; C8929; J0692; J0696; J1650; J2185; J3475; J7030; J7120; Q9957

== ENCOUNTER 2024-05-29 14:40 | Outpatient (CLI) | payer MEDICARE, SELFPAY ==
--- NOTE | ~2024-05-29 | XR_ITS ---
XR chest 2V Ordering provider: ROMELIA Russell History: 74 years Female with . sob cough for 2 weeks . Comparison: May 06, 2024 FINDINGS: MEDIASTINUM: The cardiac silhouette is not enlarged. LUNGS: No infiltrates, effusions or pneumothorax. OTHER: No free air under the diaphragm. IMPRESSION: No acute cardiopulmonary pathology. Reviewed, dictated and finalized at location A.
== END 2024-05-29 14:41 ==
PROVIDERS: PCP Clinical Nurse Specialist; Visit Provider Clinical Nurse Specialist
DX: R06.02 Shortness of breath (principal); R05.9 Cough, unspecified
CPT/HCPCS: 71046

== ENCOUNTER 2024-05-29 14:54 | Outpatient (CLI) | payer MEDICARE, SELFPAY ==
[2024-05-29 19:26] LABS: Alanine Aminotransferase 12 U/L (6-35); Alkaline Phosphatase 66 U/L (38-126); Anion Gap 11 mmol/L (4-12); Aspartate Amino Transferase 20 U/L (14-36); Bilirubin,Total 0.5 mg/dL (0.2-1.3); Blood Urea Nitrogen 32 mg/dL (7-17); Calcium 10.2 mg/dL (8.4-10.2); Carbon Dioxide 27 mmol/L (22-30); Chloride 97 mmol/L (98-107); Estimated Glomerular Filt Rate 22; Glucose 133 mg/dL (65-110); Potassium 4.1 mmol/L (3.4-5.0); Sodium 135 mmol/L (137-145)
[2024-05-29 19:38] LABS: Basophils Percent Auto 0.3 % (0.2-1.2); Eosinophils Absolute Auto 0.2 K/mm3 (0-0.3); Eosinophils Percent Auto 1.7 % (0-4.4); Hematocrit 31.2 % (37.0-47.0); Immature Granulocyte Absolute 0.05 K/mm3 (0.00-0.031); Immature Granulocyte Percent A 0.4 % (0-0.5); Lymphocytes Percent Auto 19.5 % (18.3-44.2); Mean Corpuscular HGB Conc 32.1 g/dl (32-36); Mean Corpuscular Hemoglobin 29.9 pg (26-34); Mean Corpuscular Volume 93.1 fl (80-100); Mean Platelet Volume 10.7 fl (7.4-10.4); Monocytes Absolute Auto 0.6 K/mm3 (0.1-0.6); Monocytes Percent Auto 5.2 % (2.6-8.5); Neutrophils Absolute Auto 8.2 K/mm3 (1.3-6.7); Neutrophils Percent Auto 72.9 % (45.5-73.1); Platelet Count Result 286 k/mm3 (150-375); Red Blood Count 3.35 M/mm3 (4.2-5.4); Red Cell Distribution Width 11.9 % (11.5-14.5); White Blood Count 11.3 K/mm3 (4.5-10.0)
[2024-05-29 20:01] LABS: Add Urine Microscopic? YES; Appearance Urine Turbid (Clear); Bacteria Urine 4+ /hpf; Bilirubin Urine Negative (Negative); Blood Urine 2+ (Negative); Calcium Oxalate Crystals Urine Present /hpf; Color Urine Yellow (Yellow); Glucose Urine UA Negative (Negative); Ketones Urine Negative (Negative); Leukocyte Esterase Ur 3+ LEU/UL (Negative); Need Manual Microscopic Reviewed; Nitrate Urine Negative (Negative); Protein Urine 1+ mg/dL (Negative); RBC Urine 0-2 /hpf (0-2); Specific Grav Ur 1.012 (1.001-1.035); Squamous Epithelial Cell Urine Occasional /hpf (Few); Urobilinogen Urine 0.2 mg/dL (<2.0); WBC Urine >100 /hpf (0-3); pH Urine 5.5 (5.0-9.0)
[2024-05-29 20:03] LABS: Hemoglobin A1C 7.5 % (<5.7)
== END 2024-05-29 14:55 | disposition home or self-care (01) ==
PROVIDERS: PCP Clinical Nurse Specialist; Visit Provider Clinical Nurse Specialist
DX: N39.0 Urinary tract infection, site not specified (principal); R79.89 Other specified abnormal findings of blood chemistry; N17.9 Acute kidney failure, unspecified; A41.9 Sepsis, unspecified organism
CPT/HCPCS: 36415; 80053; 81001; 83036; 85025; 87077; 87086; 87088; 87186

== ENCOUNTER 2024-05-30 10:40 | Inpatient (IN) | payer MEDICARE, SELFPAY ==
[2024-05-30] VITALS (9 sets, daily range): BP systolic 91–135; BP diastolic 49–68; PULSE 59–70; RESP 16–18; TEMP 36.2–36.4; O2SAT 95–100; BMI 27.8
--- NOTE | ~2024-05-30 | US_ITS ---
Renal-Bladder ultrasound Clinical History: Hydronephrosis COMPARISON: 05/09/2024 Technique: Real-time sonographic imaging of the kidneys and urinary bladder was performed. Findings: The right kidney measures 12.0 cm in length and the left kidney measures 11.0 cm. There is minimal right hydronephrosis. Renal cortical echogenicity is within normal limits. No renal mass lesi on is identified. The urinary bladder is collapsed around a Bay catheter. Impression: Minimal right hydronephrosis. Collapsed urinary bladder with Bay catheter in place. Reviewed, dictated and finalized at location M. Impression: Minimal right hydronephrosis. Collapsed urinary bladder with Bay catheter in place.
--- NOTE | ~2024-05-30 | NM_ITS ---
EXAMINATION: JULIO CESAR blanca renal scan DATE: 06/02/2024 15:01 INDICATION: Right hydronephrosis. TECHNIQUE: 7.8 mCi Tc-99m MAG3 was administered IV. 40 mg furosemide was administered IV immediately afterward. The patient was scanned in the supine position. A posterior abdominal radionuclide angiog connor was obtained. A subsequent time course of static images of the kidneys, ureters, and bladder was obtained. COMPARISON: CT abdomen and pelvis 05/06/2024, ultrasound 06/01/2024 FINDINGS: The posterior abdominal radionuclide angiogram and sequential static images show decreased size of the left kidney. Peak renal parenchymal uptake was 2 min in right kidney and 2 min in left ki dney (normal peak 3-5 minutes). The relative early renal uptake was 37% on the right and 63% on the left (<40% is abnormal). No abnormalities of the ureters or bladder are seen. T1/2 for clearance of activity from the right kidney and proximal collecting system was 14 minutes. T1/2 for clearance of activity from the left kidney and proximal collecting system was 10 minutes. IMPRESSION: 1. Relatively decreased right kidney function, which is 37% of total renal function. 2. Mildly delayed contrast clearance from right kidney, consistent with low grade obstruction of que stionable clinical significance. Reviewed, dictated and finalized at location A. IMPRESSION: 1. Relatively decreased right kidney function, which is 37% of total renal fun ction. 2. Mildly delayed contrast clearance from right kidney, consistent with low gr katie obstruction of questionable clinical significance.
--- NOTE | ~2024-05-30 | XR_ITS ---
EXAMINATION: XR retrograde pyelo w/stent RT DATE: 06/03/2024 14:15 CDT INDICATION: RIGHT SIDE SPECIAL . TECHNIQUE: 5 fluoroscopic images and 2 cine clips of the right abdomen and pelvis were obtained rfeddy león right retrograde pyelography with stent placement, performed by Addison Mai MD. I was not prese nt during the procedure. Fluoroscopy exposure time was 94.8 seconds. Air Kerma 32.47 mGy. DAP 1.55 mG ym2. COMPARISON: None FINDINGS/IMPRESSION: Fluoroscopic documentation of right retrograde pyelography with stent placement. Please refer to the operative note for complete procedural details . Reviewed, dictated and finalized at location K.
--- NOTE | 2024-05-30 10:47 | ECG_ITS ---
Test Date: 2024-05-30 10:51:10 Measurements Intervals [place] Rate: 63 P: 74 OK: 156 QRS: -5 QRSD: 81 T: 20 QT: 418 QTc: 428 Interpretive Statements SINUS RHYTHM MINIMAL VOLTAGE CRITERIA FOR LVH, CONSIDER NORMAL VARIANT [MEETS CRITERIA IN ONE OF: R(aVL), S(V1), R(V5), R(V5/V6)+S(V1)] BORDERLINE ECG Compared to ECG 05/07/2024 11:49:57 SINUS RHYTHM REPLACES ATRIAL FIBRILLATION Electronically Signed On 05-30-2024 11:37:52 CDT by Abdirashid Carballo M.D.
--- NOTE | 2024-05-30 10:54 | ED.GENADULT ---
HPI - General Adult General Chief complaint: Recheck/Abnormal Lab/Rx <Gary Bond APRN - Last Filed: 05/30/24 10:56> Stated complaint: need iv fluids <Gary Bond APRN - Last Filed: 05/30/24 10:56> Time Seen by Provider: 05/30/24 10:54 <Gary Bond APRN - Last Filed: 05/30/24 10:56> Patient presents with dizziness and weakness that started a couple of days ago. patient saw her pcp and had lab work completed. patient was called today to come to the ER r/t dehydration. patient also having nausea. no other complaints. PE: a&Ox3, BS CTA, HR RRR with no murmur, patient moving all extremities <Gary Bond APRN - Last Filed: 05/30/24 10:56> History of Present Illness HPI narrative: Patient is a 74-year-old female who presents ER with abnormal lab work. She had outpatient labs performed that showed she had acute kidney injury and was referred to the ER. Patient has had progressive fatigue over last week. No nausea or vomiting. No fevers or chills or sweats. Denies any urinary frequency urgency or dysuria. She has had no diarrhea. She reports she does not drink much water and typically drinks tea. <Juancho Benoit MD - Last Filed: 05/30/24 18:07> Related Data Home medications: Home Medications Medication Instructions Recorded Confirmed albuterol sulfate 90 mcg/actuation 2 puff inhalation QID PRN Allergy 05/07/24 05/29/24 aerosol inhaler Symptoms amitriptyline 25 mg tablet 25 mg PO HS 05/07/24 05/29/24 aripiprazole 5 mg tablet 5 mg PO DAILY 05/07/24 05/29/24 atorvastatin 40 mg tablet 40 mg PO DAILY 05/07/24 05/29/24 calcium carbonate (Calcium 600) 600 mg PO DAILY 05/07/24 05/29/24 cholecalciferol (vitamin D3) 25 25 mcg PO DAILY 05/07/24 05/29/24 mcg (1,000 unit) capsule cyanocobalamin (vitamin B-12) 1,000 mcg PO DAILY 05/07/24 05/29/24 1,000 mcg tablet (Vitamin B-12) fenofibrate micronized 67 mg 67 mg PO DAILY 05/07/24 05/29/24 capsule fluticasone propionate 50 1 spray intranasal Q12H 05/07/24 05/29/24 mcg/actuation nasal spray,suspension sertraline 100 mg tablet 100 mg PO DAILY 05/07/24 05/29/24 sumatriptan succinate 50 mg tablet 50 mg PO ONCE PRN Migraine Headache 05/07/24 05/29/24 topiramate 25 mg tablet 25 mg PO DAILY 05/07/24 05/29/24 trazodone 100 mg tablet 100 mg PO DAILY 05/07/24 05/29/24 <Gary Bond APRN - Last Filed: 05/30/24 10:56> Allergies/adverse reactions: Allergies Allergy/AdvReac Type Severity Reaction Status Date / Time No Known Allergies Allergy Verified 05/30/24 10:45 <Gary Bond APRN - Last Filed: 05/30/24 10:56> Review of Systems Review of Systems: All systems reviewed & are unremarkable except as noted in HPI and below <Juancho Benoit MD - Last Filed: 05/30/24 18:07> Constitutional: Constitutional: Denies chills, Reports fatigue and Denies fever(s) <Juancho Benoit MD - Last Filed: 05/30/24 18:07> ENT: Reports system reviewed and no additional complaints, except as documented <Juancho Benoit MD - Last Filed: 05/30/24 18:07> Cardiovascular: Cardiovascular: Reports no additional cardiovascular complaints <Juancho Benoit MD - Last Filed: 05/30/24 18:07> Respiratory: Respiratory: Reports no additional respiratory complaints <Juancho Benoit MD - Last Filed: 05/30/24 18:07> Gastrointestinal: Gastrointestinal: Reports no additional gastrointestinal complaints <Juancho Benoit MD - Last Filed: 05/30/24 18:07> Genitourinary: Genitourinary: Reports no additional female genitourinary complaints <Juancho Benoit MD - Last Filed: 05/30/24 18:07> PMFSH Past Medical History Medical History: Medical History Kidney stones <Gary Bond APRN - Last Filed: 05/30/24 10:56> Surgical History Surgical History: Surgical History History of lithotripsy <Gary Bond
[2024-05-30 11:18] LABS: Basophils Percent Auto 0.2 % (0.2-1.2); Eosinophils Absolute Auto 0.1 K/mm3 (0-0.3); Eosinophils Percent Auto 1.2 % (0-4.4); Hematocrit 29.4 % (37.0-47.0); Hemoglobin 9.6 g/dL (12.0-15.0); Immature Granulocyte Absolute 0.06 K/mm3 (0.00-0.031); Immature Granulocyte Percent A 0.5 % (0-0.5); Lymphocytes Absolute Auto 1.82 K/mm3 (0.9-3.2); Lymphocytes Percent Auto 15.3 % (18.3-44.2); Mean Corpuscular HGB Conc 32.7 g/dl (32-36); Mean Corpuscular Hemoglobin 29.9 pg (26-34); Mean Corpuscular Volume 91.6 fl (80-100); Monocytes Absolute Auto 0.7 K/mm3 (0.1-0.6); Monocytes Percent Auto 5.6 % (2.6-8.5); Neutrophils Absolute Auto 9.2 K/mm3 (1.3-6.7); Neutrophils Percent Auto 77.2 % (45.5-73.1); Platelet Count Result 252 k/mm3 (150-375); Red Blood Count 3.21 M/mm3 (4.2-5.4); Red Cell Distribution Width 11.9 % (11.5-14.5); White Blood Count 11.9 K/mm3 (4.5-10.0)
[2024-05-30 11:25] LABS: Alanine Aminotransferase 12 U/L (6-35); Alkaline Phosphatase 63 U/L (38-126); Anion Gap 6 mmol/L (4-12); Aspartate Amino Transferase 18 U/L (14-36); Bilirubin,Total 0.4 mg/dL (0.2-1.3); Blood Urea Nitrogen 33 mg/dL (7-17); Calcium 9.5 mg/dL (8.4-10.2); Carbon Dioxide 26 mmol/L (22-30); Chloride 99 mmol/L (98-107); Estimated CRCL calculation 22 ml/min; Estimated Glomerular Filt Rate 23; Glucose 111 mg/dL (65-110); Magnesium 1.5 mg/dL (1.6-2.3); Potassium 4.4 mmol/L (3.4-5.0); Sodium 131 mmol/L (137-145)
[2024-05-30 11:38] LABS: Troponin I < 0.012 ng/mL (0.000-0.034)
[2024-05-30] MEDS: SODIUM CHLORIDE 0.9% IV 1,000 ML 999 ML IV CONT ×2 (16:27→17:12)
[2024-05-30 16:46] LABS: Influenza A QL RT-PCR Negative (Negative); Influenza B QL RT-PCR Negative (Negative); RSV RNA, RT-PCR Negative (Negative); SARS-CoV-2 RNA PCR Negative (Negative)
[2024-05-30 17:29] LABS: Add Urine Microscopic? YES; Appearance Urine Turbid (Clear); Bacteria Urine 4+ /hpf; Bilirubin Urine Negative (Negative); Blood Urine 2+ (Negative); Color Urine Yellow (Yellow); Glucose Urine UA Negative (Negative); Ketones Urine Negative (Negative); Leukocyte Esterase Ur 3+ LEU/UL (Negative); Need Manual Microscopic Reviewed; Nitrate Urine Positive (Negative); Non Pathogenic Casts 0-2; Protein Urine Trace mg/dL (Negative); RBC Urine 0-2 /hpf (0-2); Specific Grav Ur 1.006 (1.001-1.035); Squamous Epithelial Cell Urine Few /hpf (Few); Urobilinogen Urine 0.2 mg/dL (<2.0); WBC Urine >100 /hpf (0-3); pH Urine 5.5 (5.0-9.0)
[2024-05-30] MEDS: SODIUM CHLORIDE 0.9% IV 1,000 ML 125 ML IV CONT (18:33)
--- NOTE | 2024-05-30 19:51 | PM.IMHP ---
H&P: HPI History of Present Illness Date/Time: 05/30/24 19:51 Chief Complaint: Weak, lightheaded, elevated creatinine Narrative: 74-year-old female with past medical history of paroxysmal AFib (new diagnosis 05/06/2024), essential hypertension, chronic kidney disease stage 3, depression, migraines, essential hypertension, anxiety and her recent hospitalization for enterobacter bacteremia from UTI who presented to the ER after feeling weak, lightheaded and having worsening creatinine on outpatient labs. The patient reports that since her last hospitalization she has not had any fevers. She was treated with broad-spectrum antibiotic coverage in her antibiotic coverage was decreased during her last hospital stay but her white count increased. She subsequent was placed back on broad-spectrum coverage but then was discharged on Bactrim on the 17 of May. She completed her course of Bactrim But she has had persistent urinary frequency and urgency. On physical exam patient did have a palpable bladder. Nursing staff check postvoid residual just after my evaluation the patient still had greater than 400 mL. At the time of catheterization the patient actually had greater than 800 mL. She has not had any vomiting but has chronic low appetite. She has had sensation of thirst but has had little urge to drink. She has been getting lightheaded with position changes. Orthostatic blood pressures obtained after the patient had already received adequate fluid resuscitation were negative. She does report feeling fatigued. She reports chronic chills for the last year the daughter unchanged from her baseline. She reports that in the past she used to have loose stools more so than anything else but recently has been only having bowel movements every 2 or 3 days. She tends to drink more ice tea then she does water. She thinks that she may have had a stroke about a month ago. She stated that she was doing dishes whenever she became weak on the right side and had some difficulty speaking for a couple of days. She did not come in for evaluation. She also reports an episode of chest pain a month or 2 ago that lasted several minutes and was relieved with rest. She has not had a recurrence of the symptoms since then. She has got the chest discomfort was due to getting too hot while cleaning the house. She denies any heart palpitations, diaphoresis, orthopnea, lower extremity swelling or dyspnea on exertion at baseline. Source of information is from patient report, ER physician report and past medical record review and external medication reconciliation. Review of Systems Review of Systems: 12 systems were reviewed with pertinent positives and negatives per HPI. Except as documented in the HPI, all other systems were reviewed and are negative. [facility] Past Medical History Medical History (Updated 05/31/24 @ 04:29 by Verónica Billingsley DO) Atrial fibrillation with RVR (05/06/24) CKD (chronic kidney disease) stage 3, GFR 30-59 ml/min Essential hypertension Hyperlipidemia Kidney stones Mild pulmonary hypertension Noted on echocardiogram 05/06/2024 Surgical History Surgical History History of lithotripsy Family History Family History (Updated 05/31/24 @ 04:03 by Verónica Billingsley DO) Mother Oat cell carcinoma Sibling Cancer Possibly urethral or gynecological Daughter Cancer Social History Social History (Updated 05/31/24 @ 04:05 by Veróniac Billingsley DO) Social History: She moved in with her daughter in March after her of 24 years . She reports that he was her 4th . She has 2 daughters in total. She lives with her daughter Jamia. Her daughter has several cats and the patient herself has 2 chihuahuas. She used to drink heavily episodically on the weekends but quit doing so when she was in her 30s. She is a lifelong nonsmoker and does not use illicit substances.
[2024-05-30] MEDS: MAGNESIUM SULF 2 GM/WATER 50ML 2 GM/50 ML BAG IVPB (20:49)
[2024-05-31] MEDS: SODIUM CHLORIDE 0.9% IV 1,000 ML 125 ML IV CONT ×2 (04:31→17:33)
[2024-05-31 05:34] VITALS: BP 118/47; PULSE 59; RESP 16; TEMP 36.1; O2SAT 94
[2024-05-31 05:46] LABS: Immature Reticulocyte Fraction 15.3 % (3.0-15.9); Reticulocyte Hemoglobin Conten 33.5 pg (28.2-36.6); Reticulocyte Percent 1.97 % (0.7-4.3); Reticulocytes Absolute 0.05 10^6/uL (0.02-0.10)
[2024-05-31 05:48] LABS: Basophils Percent Auto 0.2 % (0.2-1.2); Eosinophils Absolute Auto 0.2 K/mm3 (0-0.3); Eosinophils Percent Auto 1.7 % (0-4.4); Hematocrit 25.3 % (37.0-47.0); Hemoglobin 8.1 g/dL (12.0-15.0); Immature Granulocyte Absolute 0.04 K/mm3 (0.00-0.031); Immature Granulocyte Percent A 0.5 % (0-0.5); Lymphocytes Absolute Auto 1.46 K/mm3 (0.9-3.2); Lymphocytes Percent Auto 16.8 % (18.3-44.2); Mean Corpuscular Hemoglobin 29.8 pg (26-34); Mean Platelet Volume 10.2 fl (7.4-10.4); Monocytes Absolute Auto 0.5 K/mm3 (0.1-0.6); Monocytes Percent Auto 5.8 % (2.6-8.5); Neutrophils Absolute Auto 6.5 K/mm3 (1.3-6.7); Platelet Count Result 210 k/mm3 (150-375); Red Blood Count 2.72 M/mm3 (4.2-5.4); White Blood Count 8.7 K/mm3 (4.5-10.0)
[2024-05-31 06:02] LABS: Anion Gap 8 mmol/L (4-12); Blood Urea Nitrogen 26 mg/dL (7-17); Calcium 8.6 mg/dL (8.4-10.2); Carbon Dioxide 20 mmol/L (22-30); Chloride 107 mmol/L (98-107); Estimated CRCL calculation 29 ml/min; Estimated Glomerular Filt Rate 32; Glucose 126 mg/dL (65-110); Potassium 4.3 mmol/L (3.4-5.0); Sodium 135 mmol/L (137-145)
[2024-05-31 06:03] LABS: Iron 78 ug/dL (37-170)
[2024-05-31 06:12] LABS: Percent Iron Saturation 27 % (20-50)
--- NOTE | 2024-05-31 06:40 | PC.NURSE ---
On 05/31/24, the EXPLORATION ENGINEER, [ Clarisa], provided care and completed [employer] documentation on this patient. I have reviewed the EXPLORATION ENGINEER's documentation and agree with the findings.
[2024-05-31 07:04] LABS: Folic Acid 4.3 ng/mL (2.76->20)
[2024-05-31 07:39] LABS: Glucose Point of Care 117 mg/dl (65-105)
--- NOTE | 2024-05-31 09:04 | WPDURCON ---
Assessment and Plan Assessment and plan (1) Urinary retention with incomplete bladder emptying: Code(s): R33.9 - Retention of urine, unspecified Status: Acute (2) Acute kidney injury superimposed on chronic kidney disease: Code(s): N17.9 - Acute kidney failure, unspecified; N18.9 - Chronic kidney disease, unspecified Status: Acute Assessment and Plan: Very scant right hydronephrosis and incomplete bladder emptying. I have some concern that her acute kidney injury may be attributable to something other than is scant hydronephrosis Will plan to repeat renal ultrasonography with an indwelling catheter. Will also start tamsulosin in anticipation of a voiding trial prior to discharge Urology Consult Note HPI Date Seen: 05/31/24 Requesting Physician: Aparna Wynn MD Primary Care Provider: Hanna Ch, ROMELIA Consult Narrative Narrative: Roselia Maddox is a 74 year old female who has previously unknown to our practice. Urological history is significant only for a small left ureteral stone required endoscopic extraction while living in [place] approximately 1 year ago. She is admitted without pain history of generalized fatigue and outpatient labs that showed a progression in her serum creatinine to 2.1. On re-evaluation last night creatinine improved to 1.6. She has had both a CT scan of the abdomen and pelvis and renal ultrasound in early April that show scant right hydronephrosis. Additionally the CT scan suggest incomplete bladder emptying. The patient does report a sense of incomplete emptying on occasion and postvoid residual bladder scans on this admission have hovered around 350 cc. She now has an indwelling catheter. Review of Systems Review of Systems: All systems reviewed & are unremarkable except as noted in HPI and below PMFSH Past Medical History Medical History (Updated 05/31/24 @ 04:29 by Verónica Billingsley DO) Atrial fibrillation with RVR (05/06/24) CKD (chronic kidney disease) stage 3, GFR 30-59 ml/min Essential hypertension Hyperlipidemia Kidney stones Mild pulmonary hypertension Noted on echocardiogram 05/06/2024 Surgical History Surgical History History of lithotripsy Family History Family History (Updated 05/31/24 @ 04:03 by Verónica Billingsley DO) Mother Oat cell carcinoma Sibling Cancer Possibly urethral or gynecological Daughter Cancer Social History Social History (Updated 05/31/24 @ 04:05 by Verónica Billingsley DO) Social History: She moved in with her daughter in March after her of 24 years . She reports that he was her 4th . She has 2 daughters in total. She lives with her daughter Jamia. Her daughter has several cats and the patient herself has 2 chihuahuas. She used to drink heavily episodically on the weekends but quit doing so when she was in her 30s. She is a lifelong nonsmoker and does not use illicit substances. Code status: Full code (she states she would not want to be on long-term ventilation or life support she would not want feeding tube) Surrogate decision maker: Jamia (youngest daughter) Smoking status: Never smoker Alcohol intake: never Substance use: never Substance use type: does not use Do You Feel Safe in your Home?: Yes Lack of Transportation: No Lack of Food: Never True Current Housing: I Have Housing Concerned About Future Housing: No Difficulty Paying Gas/Electric Bills: No Difficulty Paying for Meds: No Currently Unemployed: No Education: High School Diploma/GED Difficulty w/ Childcare or Family Care: No Spiritual care concerns: No Meds Home Medications and Allergies Home Medications Medication Instructions Recorded Confirmed Type albuterol sulfate 90 mcg/actuation 2 puff inhalation QID PRN Allergy 05/07/24 05/30/24 History aerosol inhaler Symptoms amitriptyline 25 mg tablet 25 mg P
[2024-05-31] MEDS: CYANOCOBALAMIN 1,000 MCG TABLET 1000 MCG PO (09:34)
[2024-05-31] MEDS: CHOLECALCIFEROL 1,000 UNITS TABLET 1000 UNITS PO (09:34)
[2024-05-31] MEDS: CALCIUM CARBONATE (OSCAL) 500 MG TABLET PO (09:34)
[2024-05-31] MEDS: ATORVASTATIN 40 MG TABLET PO (09:34)
[2024-05-31] MEDS: APIXABAN 5 MG TABLET PO ×2 (09:34→21:07)
[2024-05-31] MEDS: SERTRALINE HCL 50 MG TABLET 100 MG PO (09:34)
[2024-05-31] MEDS: ARIPiprazole 5 MG TABLET PO (09:34)
[2024-05-31 11:31] LABS: Glucose Point of Care 128 mg/dl (65-105)
[2024-05-31 14:00] VITALS: BP 128/62; PULSE 68; RESP 18; TEMP 36.7; O2SAT 95
--- NOTE | 2024-05-31 15:48 | WPDPN ---
Progress Note: A&P Assessment and Plan (1) Acute UTI: Code(s): N39.0 - Urinary tract infection, site not specified Status: Acute (2) Urinary retention with incomplete bladder emptying: Code(s): R33.9 - Retention of urine, unspecified Status: Acute (3) Acute kidney injury superimposed on chronic kidney disease: Code(s): N17.9 - Acute kidney failure, unspecified; N18.9 - Chronic kidney disease, unspecified Status: Acute (4) Type 2 diabetes mellitus: Qualifiers: Diabetes mellitus mcfp insulin use: without automatic maintainer use Diabetes mellitus complication status: with kidney complications Diabetes mellitus complication detail: with chronic kidney disease Chronic kidney disease stage: stage 3 (moderate) Chronic kidney disease stage 3 subtype: stage 3b (GFR 30-44) Qualified Code(s): E11.22 - Type 2 diabetes mellitus with diabetic chronic kidney disease; N18.32 - Chronic kidney disease, stage 3b Code(s): E11.9 - Type 2 diabetes mellitus without complications Status: Acute Plan 05/31/2024 Interval history: patient with history of recurrent UTI 2/2 urinary retention resulting in scant hydronephrosis resulting in elevated Scr seen by urologist does not suspect elevated Scr due to scant hydronephrosis recommended to continue to treat for UTI and will repeat kidney US to reassess, patient stats feeling better and denies any abdominal pain or fever. elevated Scr may be related to diabetes nephropathy, will check A1c. Subjective Date/time seen: 05/31/24 15:48 Interval history: Chief Complaint: Weak, lightheaded, elevated creatinine H&P-HPI_Narrative: 74-year-old female with past medical history of paroxysmal AFib (new diagnosis 05/06/2024), essential hypertension, chronic kidney disease stage 3, depression, migraines, essential hypertension, anxiety and her recent hospitalization for enterobacter bacteremia from UTI who presented to the ER after feeling weak, lightheaded and having worsening creatinine on outpatient labs. The patient reports that since her last hospitalization she has not had any fevers. She was treated with broad-spectrum antibiotic coverage in her antibiotic coverage was decreased during her last hospital stay but her white count increased. She subsequent was placed back on broad-spectrum coverage but then was discharged on Bactrim on the 17 of May. She completed her course of Bactrim But she has had persistent urinary frequency and urgency. On physical exam patient did have a palpable bladder. Nursing staff check postvoid residual just after my evaluation the patient still had greater than 400 mL. At the time of catheterization the patient actually had greater than 800 mL. She has not had any vomiting but has chronic low appetite. She has had sensation of thirst but has had little urge to drink. She has been getting lightheaded with position changes. Orthostatic blood pressures obtained after the patient had already received adequate fluid resuscitation were negative. She does report feeling fatigued. She reports chronic chills for the last year the daughter unchanged from her baseline. She reports that in the past she used to have loose stools more so than anything else but recently has been only having bowel movements every 2 or 3 days. She tends to drink more ice tea then she does water. She thinks that she may have had a stroke about a month ago. She stated that she was doing dishes whenever she became weak on the right side and had some difficulty speaking for a couple of days. She did not come in for evaluation. She also reports an episode of chest pain a month or 2 ago that lasted several minutes and was relieved with rest. She has not had a recurrence of the symptoms since then. She has got the chest discomfort was due to getting too hot while cleaning the house. She denies any heart palpitations, diaphoresis, orthopnea, lower extremity swelling or dyspn
[2024-05-31 16:38] LABS: Glucose Point of Care 142 mg/dl (65-105)
[2024-05-31 20:00] VITALS: PULSE 66; RESP 18; O2SAT 96
[2024-05-31 20:08] LABS: Glucose Point of Care 159 mg/dl (65-105)
[2024-05-31] MEDS: TAMSULOSIN HCL 0.4 MG CAPSULE PO (21:08)
[2024-05-31] MEDS: traZODone HCL 50 MG TABLET 100 MG PO (21:08)
[2024-05-31 21:39] VITALS: BP 134/70; PULSE 66; RESP 18; TEMP 36.6; O2SAT 96
[2024-06-01 05:38] VITALS: BP 152/64; PULSE 65; RESP 16; TEMP 36.5; O2SAT 96
[2024-06-01 06:11] LABS: Hematocrit 24.8 % (37.0-47.0); Hemoglobin 7.9 g/dL (12.0-15.0); Mean Corpuscular HGB Conc 31.9 g/dl (32-36); Mean Corpuscular Hemoglobin 29.4 pg (26-34); Mean Corpuscular Volume 92.2 fl (80-100); Mean Platelet Volume 10.1 fl (7.4-10.4); Platelet Count Result 200 k/mm3 (150-375); Red Blood Count 2.69 M/mm3 (4.2-5.4); White Blood Count 8.9 K/mm3 (4.5-10.0)
[2024-06-01 06:23] LABS: Anion Gap 8 mmol/L (4-12); Blood Urea Nitrogen 20 mg/dL (7-17); Calcium 8.5 mg/dL (8.4-10.2); Carbon Dioxide 20 mmol/L (22-30); Chloride 109 mmol/L (98-107); Estimated CRCL calculation 31 ml/min; Estimated Glomerular Filt Rate 34; Glucose 107 mg/dL (65-110); Magnesium 1.7 mg/dL (1.6-2.3); Sodium 137 mmol/L (137-145)
[2024-06-01 07:43] LABS: Glucose Point of Care 104 mg/dl (65-105)
--- NOTE | 2024-06-01 08:26 | WPDUROPN2 ---
Progress Note: A&P Assessment and Plan (1) Urinary retention with incomplete bladder emptying: Code(s): R33.9 - Retention of urine, unspecified Status: Acute Assessment and Plan: Agree with catheter, RBUS to evaluate for resolution of mild right hydronephrosis. (2) Acute UTI: Code(s): N39.0 - Urinary tract infection, site not specified Status: Acute Assessment and Plan: Agree with antibiotics, patient reports subjective improvement, maintain catheter, likely trial of void tomorrow. Subjective Subjective Date/Time Seen: 06/01/24 08:26 Review of Systems Review of Systems: MARITA, report she is feeling much better after antibiotics. GNRs in UCx. Exam Narrative: NAD, A&Ox3 RRR EWOB S/NT/ND Bay with clear yellow urine Neuro nonfocal, cooperative, appropriate affect and mood. Objective Data Vital Signs Vital Signs: Vital Signs - 24 hr 05/31/24 09:30 05/31/24 14:00 05/31/24 21:39 Temperature 98.1 F 97.8 F Pulse Rate 68 66 Respiratory Rate 18 18 Blood Pressure 128/62 134/70 Pulse Oximetry 95 96 Oxygen Delivery Room Air 05/31/24 20:00 06/01/24 05:38 Temperature 97.7 F Pulse Rate 66 65 Respiratory Rate 18 16 Blood Pressure 152/64 H Pulse Oximetry 96 96 Oxygen Delivery Room Air Intake/Output Intake/Output: Intake & Output 05/29/24 05/30/24 05/31/24 06/01/24 23:59 23:59 23:59 23:59 Intake Total 2100 3196 120 Output Total 200 3100 1400 Balance 1900 96 -1280 Meds/Results Medications: Active Medications Generic Name Dose Route Start Last Admin Trade Name Freq PRN Reason Stop Dose Admin Acetaminophen 650 mg 05/30/24 18:06 Acetaminophen 325 Mg Tablet PO Q4H PRN Mild Pain (1-3) or Fever Hydrocodone Bitart/Acetaminophen 1 tab 05/30/24 18:06 Hydrocodone/Acetaminophen (*Crx) 5-325 Mg Tablet PO Q4H PRN Pain Rated 4-6 Apixaban 5 mg 05/31/24 09:00 05/31/24 21:07 Apixaban 5 Mg Tablet PO 5 mg Q12HR SHIRLEY Administration Aripiprazole 5 mg 05/31/24 09:00 05/31/24 09:34 Aripiprazole 5 Mg Tablet PO 5 mg DAILY SHIRLEY Administration Atorvastatin Calcium 40 mg 05/31/24 09:00 05/31/24 09:34 Atorvastatin 40 Mg Tablet PO 40 mg DAILY SHIRLEY Administration Calcium Carbonate 500 mg 05/31/24 09:00 05/31/24 09:34 Calcium Carbonate (Oscal) 500 Mg Tablet PO 06/30/24 08:59 500 mg DAILY SHIRLEY Administration Cyanocobalamin 1,000 mcg 05/31/24 09:00 05/31/24 09:34 Cyanocobalamin 1,000 Mcg Tablet PO 1,000 mcg DAILY SHIRLEY Administration Dextrose 12.5 gm 05/31/24 04:30 Dextrose 50% 25 Gm/50 Ml Syringe IV PUSH PRN PRN Hypoglycemia Protocol Fluticasone Propionate 1 spray 05/31/24 09:00 05/31/24 21:08 Fluticasone Propionate 0.05% Na Spr 16 Gm Btl (*Bkc) NASAL Not Given Q12HR SHIRLEY Glucagon 1 mg 05/31/24 04:30 Glucagon For Inj 1 Mg Vial IM PRN PRN Hypoglycemia Protocol Glucose 15 gm 05/31/24 04:30 Glucose Oral Gel 15 Gm Of Glucse In 37.5 Gm Tube PO PRN PRN Hypoglycemia Protocol Ceftriaxone Sodium 1 gm in 50 mls @ 100 mls/hr 05/31/24 18:00 05/31/24 18:03 Rocephin 1 Gm/Ns 50 Ml IVPB Infused Q24H SHIRLEY Infusion Sodium Chloride 1,000 mls @ 125 mls/hr 05/30/24 18:10 05/31/24 17:33 Normal Saline Iv IV CONT 125 mls/hr .Q8H SHIRLEY Administration Dextrose 1,000 mls @ 100 mls/hr 05/31/24 04:30 Dextrose 5% 1,000 Ml IVPB PRN PRN Hypoglycemia Protocol Insulin Aspart 2 - 5 units 05/31/24 08:00 05/31/24 16:44 Insulin Aspart (*Bkc) 100 Units/Ml SUB-Q Not Given TIDWM SHIRLEY Protocol Insulin Aspart 1 - 2 units 05/31/24 21:00 05/31/24 21:08 Insulin Aspart (*Bkc) 100 Units/Ml SUB-Q Not Given HS SHIRLEY Protocol Metoprolol Succinate 75 mg 05/31/24 09:00 05/31/24 09:47 Metoprolol Succinate Ext Rel 25 Mg Tabcr PO Not Given QAM SHIRLEY Miscellaneous Informati
[2024-06-01 08:58] LABS: Protein, Total 5.6 g/dL (6.1-8.1)
[2024-06-01 09:38] VITALS: PULSE 65
[2024-06-01] MEDS: CYANOCOBALAMIN 1,000 MCG TABLET 1000 MCG PO (09:38)
[2024-06-01] MEDS: METOPROLOL SUCCINATE EXT REL 25 MG TABCR 75 MG PO (09:38)
[2024-06-01] MEDS: ARIPiprazole 5 MG TABLET PO (09:38)
[2024-06-01] MEDS: ATORVASTATIN 40 MG TABLET PO (09:38)
[2024-06-01] MEDS: SERTRALINE HCL 50 MG TABLET 100 MG PO (09:38)
[2024-06-01] MEDS: APIXABAN 5 MG TABLET PO ×2 (09:38→20:48)
[2024-06-01] MEDS: CALCIUM CARBONATE (OSCAL) 500 MG TABLET PO (09:38)
[2024-06-01] MEDS: CHOLECALCIFEROL 1,000 UNITS TABLET 1000 UNITS PO (09:38)
[2024-06-01 11:21] LABS: Glucose Point of Care 120 mg/dl (65-105)
--- NOTE | 2024-06-01 12:55 | WPDPN ---
Progress Note: A&P Assessment and Plan (1) Acute UTI: Code(s): N39.0 - Urinary tract infection, site not specified Status: Acute (2) Urinary retention with incomplete bladder emptying: Code(s): R33.9 - Retention of urine, unspecified Status: Acute (3) Acute kidney injury superimposed on chronic kidney disease: Code(s): N17.9 - Acute kidney failure, unspecified; N18.9 - Chronic kidney disease, unspecified Status: Acute (4) Type 2 diabetes mellitus: Qualifiers: Diabetes mellitus assisted insulin use: without bed bug exterminator use Diabetes mellitus complication status: with kidney complications Diabetes mellitus complication detail: with chronic kidney disease Chronic kidney disease stage: stage 3 (moderate) Chronic kidney disease stage 3 subtype: stage 3b (GFR 30-44) Qualified Code(s): E11.22 - Type 2 diabetes mellitus with diabetic chronic kidney disease; N18.32 - Chronic kidney disease, stage 3b Code(s): E11.9 - Type 2 diabetes mellitus without complications Status: Acute Plan 06/01/2024 Interval history: patient with history of recurrent UTI 2/2 urinary retention resulting in scant hydronephrosis causing elevated Scr, seen by urologist does not suspect elevated Scr due to scant hydronephrosis recommended to continue to treat for UTI and today repeat kidney US still shows mild hydronephrosis, however patient Scr has improved to 1.5 compared to Scr of 2.2 upon arrival, patient was seen her urologist will have avoiding trial tomorrow and further recommendations to follow. patient stats feeling better and denies any abdominal pain or fever. elevated Scr may be related to diabetes nephropathy, will check A1c. Subjective Date/time seen: 06/01/24 12:55 Interval history: Chief Complaint: Weak, lightheaded, elevated creatinine H&P-HPI_Narrative: 74-year-old female with past medical history of paroxysmal AFib (new diagnosis 05/06/2024), essential hypertension, chronic kidney disease stage 3, depression, migraines, essential hypertension, anxiety and her recent hospitalization for enterobacter bacteremia from UTI who presented to the ER after feeling weak, lightheaded and having worsening creatinine on outpatient labs. The patient reports that since her last hospitalization she has not had any fevers. She was treated with broad-spectrum antibiotic coverage in her antibiotic coverage was decreased during her last hospital stay but her white count increased. She subsequent was placed back on broad-spectrum coverage but then was discharged on Bactrim on the 17 of May. She completed her course of Bactrim But she has had persistent urinary frequency and urgency. On physical exam patient did have a palpable bladder. Nursing staff check postvoid residual just after my evaluation the patient still had greater than 400 mL. At the time of catheterization the patient actually had greater than 800 mL. She has not had any vomiting but has chronic low appetite. She has had sensation of thirst but has had little urge to drink. She has been getting lightheaded with position changes. Orthostatic blood pressures obtained after the patient had already received adequate fluid resuscitation were negative. She does report feeling fatigued. She reports chronic chills for the last year the daughter unchanged from her baseline. She reports that in the past she used to have loose stools more so than anything else but recently has been only having bowel movements every 2 or 3 days. She tends to drink more ice tea then she does water. She thinks that she may have had a stroke about a month ago. She stated that she was doing dishes whenever she became weak on the right side and had some difficulty speaking for a couple of days. She did not come in for evaluation. She also reports an episode of chest pain a month or 2 ago that lasted several minutes and was relieved with rest. She has not had a recurrence of the s
[2024-06-01] MEDS: SODIUM CHLORIDE 0.9% IV 1,000 ML 125 ML IV CONT ×2 (13:00→20:52)
[2024-06-01 14:00] VITALS: BP 130/68; PULSE 72; RESP 18; TEMP 36.7; O2SAT 96
[2024-06-01 16:32] LABS: Glucose Point of Care 122 mg/dl (65-105)
[2024-06-01 19:49] LABS: Glucose Point of Care 160 mg/dl (65-105)
[2024-06-01] MEDS: traZODone HCL 50 MG TABLET 100 MG PO (20:48)
[2024-06-01] MEDS: TAMSULOSIN HCL 0.4 MG CAPSULE PO (20:48)
[2024-06-01 21:21] VITALS: BP 144/57; PULSE 57; RESP 16; TEMP 36.9; O2SAT 99
[2024-06-02] MEDS: SODIUM CHLORIDE 0.9% IV 1,000 ML 125 ML IV CONT ×2 (05:09→13:16)
[2024-06-02 05:21] VITALS: BP 138/55; PULSE 50; RESP 18; TEMP 36.6; O2SAT 96
[2024-06-02 05:52] LABS: Hematocrit 26.9 % (37.0-47.0); Hemoglobin 8.4 g/dL (12.0-15.0); Mean Corpuscular HGB Conc 31.2 g/dl (32-36); Mean Corpuscular Hemoglobin 29.6 pg (26-34); Mean Corpuscular Volume 94.7 fl (80-100); Mean Platelet Volume 10.8 fl (7.4-10.4); Platelet Count Result 174 k/mm3 (150-375); Red Blood Count 2.84 M/mm3 (4.2-5.4); White Blood Count 9.8 K/mm3 (4.5-10.0)
[2024-06-02 06:02] LABS: Anion Gap 8 mmol/L (4-12); Blood Urea Nitrogen 16 mg/dL (7-17); Calcium 8.7 mg/dL (8.4-10.2); Carbon Dioxide 19 mmol/L (22-30); Chloride 110 mmol/L (98-107); Estimated CRCL calculation 36 ml/min; Estimated Glomerular Filt Rate 40; Glucose 112 mg/dL (65-110); Magnesium 1.6 mg/dL (1.6-2.3); Sodium 137 mmol/L (137-145)
[2024-06-02 06:49] LABS: Hemoglobin A1C 7.5 % (<5.7)
[2024-06-02 07:31] LABS: Glucose Point of Care 98 mg/dl (65-105)
[2024-06-02] MEDS: ARIPiprazole 5 MG TABLET PO (08:00)
[2024-06-02] MEDS: CHOLECALCIFEROL 1,000 UNITS TABLET 1000 UNITS PO (08:00)
[2024-06-02] MEDS: CALCIUM CARBONATE (OSCAL) 500 MG TABLET PO (08:00)
[2024-06-02] MEDS: ATORVASTATIN 40 MG TABLET PO (08:00)
[2024-06-02] MEDS: CYANOCOBALAMIN 1,000 MCG TABLET 1000 MCG PO (08:00)
[2024-06-02] MEDS: APIXABAN 5 MG TABLET PO ×2 (08:00→20:46)
[2024-06-02] MEDS: SERTRALINE HCL 50 MG TABLET 100 MG PO (08:00)
[2024-06-02 08:02] VITALS: PULSE 45; O2SAT 90
[2024-06-02] MEDS: TOPIRAMATE 25 MG TABLET PO ×2 (09:00→16:27)
--- NOTE | 2024-06-02 09:14 | WPDUROPN2 ---
Progress Note: A&P Assessment and Plan (1) Urinary retention with incomplete bladder emptying: Code(s): R33.9 - Retention of urine, unspecified Status: Acute Assessment and Plan: Continue Bay catheter at this time. Will plan for voiding trial based on results of renal scan (2) Hydronephrosis, right: Code(s): N13.30 - Unspecified hydronephrosis Status: Acute Assessment and Plan: Noted to have scant right hydronephrosis on initial CT in the setting of incomplete bladder emptying. Following Bay catheter placement, repeat renal/bladder ultrasound shows persistent minimal right hydronephrosis. Will plan for Lasix renal scan today for further evaluation (3) Acute UTI: Code(s): N39.0 - Urinary tract infection, site not specified Status: Acute Assessment and Plan: Urine culture with growth of Klebsiella. Continue antibiotics tailored to urine culture results (4) Acute kidney injury superimposed on chronic kidney disease: Code(s): N17.9 - Acute kidney failure, unspecified; N18.9 - Chronic kidney disease, unspecified Status: Acute Assessment and Plan: Creatinine improving, 1.3 today Subjective Subjective Date/Time Seen: 06/02/24 09:14 Interval history: Roselia is feeling well today. Offers no complaints. Bay catheter is draining clear yellow urine. Denies abdominal pain, flank pain, nausea, vomiting, fever, or chills. Review of Systems Review of Systems: All systems reviewed & are unremarkable except as noted in HPI and below Exam Narrative: General: Awake, alert, comfortable, no acute distress HEENT: Normocephalic, atraumatic, sclerae anicteric Respiratory: Normal respiratory effort, no accessory muscle use Abdomen: Nondistended, soft, nontender : Bay catheter draining clear yellow urine Skin: Normal coloration, warm and dry Neurologic: No focal neuro deficits noted Psychiatric: Appropriate mood and affect, judgment and insight intact Objective Data Vital Signs Vital Signs: Vital Signs - 24 hr 06/01/24 09:38 06/01/24 14:00 06/01/24 20:00 Temperature 98.0 F Pulse Rate 65 72 Respiratory Rate 18 Blood Pressure 130/68 Pulse Oximetry 96 Oxygen Delivery Room Air 06/01/24 21:21 06/02/24 05:21 06/02/24 08:02 Temperature 98.4 F 97.8 F Pulse Rate 57 L 50 L 45 L Respiratory Rate 16 18 Blood Pressure 144/57 H 138/55 L Pulse Oximetry 99 96 90 Oxygen Delivery 06/02/24 08:00 Temperature Pulse Rate Respiratory Rate Blood Pressure Pulse Oximetry Oxygen Delivery Room Air Intake/Output Intake/Output: Intake & Output 05/30/24 05/31/24 06/01/24 06/02/24 23:59 23:59 23:59 23:59 Intake Total 2100 3196 3379.3 1486 Output Total 200 3100 2650 2000 Balance 1900 96 729.3 -514 Meds/Results Medications: Active Medications Generic Name Dose Route Start Last Admin Trade Name Freq PRN Reason Stop Dose Admin Acetaminophen 650 mg 05/30/24 18:06 Acetaminophen 325 Mg Tablet PO Q4H PRN Mild Pain (1-3) or Fever Hydrocodone Bitart/Acetaminophen 1 tab 05/30/24 18:06 Hydrocodone/Acetaminophen (*Crx) 5-325 Mg Tablet PO Q4H PRN Pain Rated 4-6 Apixaban 5 mg 05/31/24 09:00 06/02/24 08:00 Apixaban 5 Mg Tablet PO 5 mg Q12HR SHIRLEY Administration Aripiprazole 5 mg 05/31/24 09:00 06/02/24 08:00 Aripiprazole 5 Mg Tablet PO 5 mg DAILY SHIRLEY Administration Atorvastatin Calcium 40 mg 05/31/24 09:00 06/02/24 08:00 Atorvastatin 40 Mg Tablet PO 40 mg DAILY SHIRLEY Administration Calcium Carbonate 500 mg 05/31/24 09:00 06/02/24 08:00 Calcium Carbonate (Oscal) 500 Mg Tablet PO 06/30/24 08:59 500 mg DAILY SHIRLEY Administration Cyanocobalamin 1,000 mcg 05/31/24 09:00 06/02/24 08:00 Cyanocobalamin 1,000 Mcg Tablet PO 1,000 mcg DAILY SHIRLEY Administration Dextrose 12.5 gm 05/31/24 04:30 Dextrose 50% 25 Gm/50 Ml Syr
[2024-06-02 11:22] LABS: Glucose Point of Care 137 mg/dl (65-105)
[2024-06-02 11:59] LABS: Albumin 2.6 g/dL (3.8-4.8); Alpha 1 Globulin 0.4 g/dL (0.2-0.3); Alpha 2 Globulin 0.8 g/dL (0.5-0.9); Beta 1 Globulin 0.4 g/dL (0.4-0.6); Gamma Globulin 1.1 g/dL (0.8-1.7)
--- NOTE | 2024-06-02 13:54 | PC.NURSE ---
Patient down to [facility] for renal scan via wheelchair.
[2024-06-02 14:00] VITALS: BP 132/62; PULSE 62; RESP 18; TEMP 36.4; O2SAT 96
--- NOTE | 2024-06-02 14:09 | PM.IMPN ---
Progress Note: A&P Assessment and Plan (1) Acute UTI: Code(s): N39.0 - Urinary tract infection, site not specified Status: Acute Assessment and Plan: 06/02/24: UA showed 1+ urine protein, 2+ urine blood, 3+ leukocyte, greater than 100 urine W BC, 4+ bacteria Urine culture positive for Klebs aerogenes (Enterobacter) Patient was started on Rocephin and will transition to Levaquin today (2) Urinary retention with incomplete bladder emptying: Code(s): R33.9 - Retention of urine, unspecified Status: Acute Assessment and Plan: 06/02/24: Renal US shown minimal right hydronephrosis Urology following Creatinine 1.30 Plan for Lasix renal scan today Continue Flomax (3) Acute kidney injury superimposed on chronic kidney disease: Code(s): N17.9 - Acute kidney failure, unspecified; N18.9 - Chronic kidney disease, unspecified Status: Acute Assessment and Plan: see above (4) Type 2 diabetes mellitus: Qualifiers: Chronic kidney disease stage: stage 3 (moderate) Chronic kidney disease stage 3 subtype: stage 3b (GFR 30-44) Diabetes mellitus complication detail: with chronic kidney disease Diabetes mellitus complication status: with kidney complications Diabetes mellitus intermission coordinator insulin use: without intermission coordinator use Qualified Code(s): E11.22 - Type 2 diabetes mellitus with diabetic chronic kidney disease; N18.32 - Chronic kidney disease, stage 3b Code(s): E11.9 - Type 2 diabetes mellitus without complications Status: Acute Assessment and Plan: 06/02/24: Blood sugars ranging 112-137 Hgb A1C 7.5 Accu checks AC/HS Low-dose SSI ordered hypoglycemic protocol in place Diabetic diet ordered Time Spent With Patient Time with patient: Greater than 35 minutes Subjective Date/time seen: 06/02/24 14:09 Interval history: Interval history: This 74-year-old female who presented to the hospital on 05/30/2024 with weakness, lightheadedness, elevated creatinine. Workup in the hospital included a chest x-ray which was negative. Renal ultrasound shown minimal right hydronephrosis, collapsed urinary bladder with Bay catheter in place. Initial white blood count was 11.3, hemoglobin 10.0, sodium 135, chloride 97, creatinine 2.2, EGFR 22, hemoglobin A1c 7.5. UA was obtained and showed 1+ urine protein, 2+ urine blood, 3+ leukocyte, greater than 100 urine WBC, 4+ bacteria. Urine culture showing Klebs aerogenes enterobactor. Respiratory panel was negative for influenza a and B, RSV, COVID. And patient was started on Rocephin and Urology was consulted. 06/02/24: Vital signs are stable, she is afebrile, she is on room air. Patient denies any fever, chills, nausea, vomiting, diarrhea, abdominal pain, chest pain, shortness a breath. Labs and imaging reviewed. Review of Systems Review of Systems: All systems reviewed & are unremarkable except as noted in HPI and below Constitutional: Constitutional: Reports as per HPI and Reports no additional constitutional complaints Eyes: Eyes: Reports as per HPI and Reports no additional eye complaints ENT: Reports system reviewed and no additional complaints, except as documented and Reports as per HPI Cardiovascular: Cardiovascular: Reports as per HPI and Reports no additional cardiovascular complaints Respiratory: Respiratory: Reports as per HPI and Reports no additional respiratory complaints Gastrointestinal: Gastrointestinal: Reports as per HPI and Reports no additional gastrointestinal complaints Genitourinary: Genitourinary: Reports no additional female genitourinary complaints and Reports as per HPI Musculoskeletal: Musculoskeletal: Reports no additional musculoskeletal complaints and Reports as per HPI Integumentary/Breasts: Skin/Breast: Reports system reviewed and no additional complaints, except as docu and Reports as per HPI Neurologic: Reports system reviewed and no additional complaints, except as documented
[2024-06-02] MEDS: FUROSEMIDE INJ 40 MG/4 ML VIAL IV PUSH (14:25)
[2024-06-02] MEDS: levoFLOXacin 750 MG TABLET PO (15:06)
[2024-06-02 16:19] LABS: Glucose Point of Care 124 mg/dl (65-105)
[2024-06-02 20:32] VITALS: BP 149/55; PULSE 58; RESP 16; TEMP 36.3; O2SAT 94
[2024-06-02 20:32] LABS: Glucose Point of Care 156 mg/dl (65-105)
[2024-06-02] MEDS: TAMSULOSIN HCL 0.4 MG CAPSULE PO (20:46)
[2024-06-02] MEDS: traZODone HCL 50 MG TABLET 100 MG PO (20:46)
[2024-06-03] VITALS (14 sets, daily range): BP systolic 141–177; BP diastolic 51–70; PULSE 48–60; RESP 14–18; TEMP 36.1–36.4; O2SAT 94–100
--- NOTE | 2024-06-03 06:11 | WPDUROPN2 ---
Progress Note: A&P Assessment and Plan (1) Acute kidney injury superimposed on chronic kidney disease: Code(s): N17.9 - Acute kidney failure, unspecified; N18.9 - Chronic kidney disease, unspecified Status: Acute (2) Hydronephrosis, right: Code(s): N13.30 - Unspecified hydronephrosis Status: Acute Assessment and Plan: Scant right hydronephrosis persists despite catheter placement Renal scan also with borderline obstruction (T-1/2: 14min on right) Will plan cysto./right retrograde pyelogram/right ureteroscopy/possible right stent placement Subjective Subjective Date/Time Seen: 06/03/24 06:11 Interval history: Comfortable, no complaints Review of Systems Cardiovascular: Cardiovascular: Denies chest pain, Denies lightheadedness, Denies palpitations and Denies dyspnea Respiratory: Respiratory: Denies dyspnea Gastrointestinal: Gastrointestinal: Denies diarrhea, Denies nausea and Denies vomiting Genitourinary: Genitourinary: Denies hematuria and Denies dysuria Endocrine: Endocrine: Denies palpitations Exam Const: General: no acute distress Resp: Effort & Inspection: normal respiratory effort GI: Inspection: non-distended GI Palp: No abdominal tenderness and No Guarding due to palpation present (GI) Auscultation: normal bowel sounds Objective Data Vital Signs Vital Signs: Vital Signs - 24 hr 06/02/24 08:02 06/02/24 08:00 06/02/24 14:00 Temperature 97.6 F Pulse Rate 45 L 62 Respiratory Rate 18 Blood Pressure 132/62 Pulse Oximetry 90 96 Oxygen Delivery Room Air 06/02/24 20:32 06/02/24 20:00 06/03/24 05:04 Temperature 97.3 F L 97.5 F L Pulse Rate 58 L 53 L Respiratory Rate 16 17 Blood Pressure 149/55 H 147/58 H Pulse Oximetry 94 97 Oxygen Delivery Room Air Intake/Output Intake/Output: Intake & Output 05/31/24 06/01/24 06/02/24 06/03/24 23:59 23:59 23:59 23:59 Intake Total 3196 3379.3 4286 Output Total 3100 2650 5950 1275 Balance 96 729.3 -5159 -5597 Meds/Results Medications: Active Medications Generic Name Dose Route Start Last Admin Trade Name Freq PRN Reason Stop Dose Admin Acetaminophen 650 mg 08/02/24 18:06 Acetaminophen 325 Mg Tablet PO Q4H PRN Mild Pain (1-3) or Fever Hydrocodone Bitart/Acetaminophen 1 tab 05/30/24 18:06 Hydrocodone/Acetaminophen (*Crx) 5-325 Mg Tablet PO Q4H PRN Pain Rated 4-6 Apixaban 5 mg 05/31/24 09:00 06/02/24 20:46 Apixaban 5 Mg Tablet PO 5 mg Q12HR SHIRLEY Administration Aripiprazole 5 mg 05/31/24 09:00 06/02/24 08:00 Aripiprazole 5 Mg Tablet PO 5 mg DAILY SHIRLEY Administration Atorvastatin Calcium 40 mg 05/31/24 09:00 06/02/24 08:00 Atorvastatin 40 Mg Tablet PO 40 mg DAILY SHIRLEY Administration Calcium Carbonate 500 mg 05/31/24 09:00 06/02/24 08:00 Calcium Carbonate (Oscal) 500 Mg Tablet PO 06/30/24 08:59 500 mg DAILY SHIRLEY Administration Cyanocobalamin 1,000 mcg 05/31/24 09:00 06/02/24 08:00 Cyanocobalamin 1,000 Mcg Tablet PO 1,000 mcg DAILY SHIRLEY Administration Dextrose 12.5 gm 05/31/24 04:30 Dextrose 50% 25 Gm/50 Ml Syringe IV PUSH PRN PRN Hypoglycemia Protocol Fenofibrate 145 mg 06/03/24 09:00 Fenofibrate Nanocrystallized 145 Mg Tablet PO QAM SHIRLEY Fluticasone Propionate 1 spray 05/31/24 09:00 06/02/24 20:48 Fluticasone Propionate 0.05% Na Spr 16 Gm Btl (*Bkc) NASAL Not Given Q12HR SHIRLEY Glucagon 1 mg 05/31/24 04:30 Glucagon For Inj 1 Mg Vial IM PRN PRN Hypoglycemia Protocol Glucose 15 gm 05/31/24 04:30 Glucose Oral Gel 15 Gm Of Glucse In 37.5 Gm Tube PO PRN PRN Hypoglycemia Protocol Dextrose 1,000 mls @ 100 mls/hr 05/31/24 04:30 Dextrose 5% 1,000 Ml IVPB PRN PRN Hypoglycemia Protocol Insulin Aspart 2 - 5 units 05/31/24 08:00 06/02/24 16:27 Insulin Aspart (*Bkc) 100 Units/Ml SUB-Q Not Given T
[2024-06-03 06:24] LABS: Hematocrit 26.7 % (37.0-47.0); Mean Corpuscular HGB Conc 33.7 g/dl (32-36); Mean Corpuscular Hemoglobin 30.2 pg (26-34); Mean Corpuscular Volume 89.6 fl (80-100); Mean Platelet Volume 10.2 fl (7.4-10.4); Platelet Count Result 202 k/mm3 (150-375); Red Blood Count 2.98 M/mm3 (4.2-5.4); Red Cell Distribution Width 12.1 % (11.5-14.5); White Blood Count 9.1 K/mm3 (4.5-10.0)
[2024-06-03 06:47] LABS: Anion Gap 10 mmol/L (4-12); Blood Urea Nitrogen 18 mg/dL (7-17); Carbon Dioxide 22 mmol/L (22-30); Chloride 104 mmol/L (98-107); Estimated CRCL calculation 29 ml/min; Estimated Glomerular Filt Rate 32; Glucose 117 mg/dL (65-110); Magnesium 1.4 mg/dL (1.6-2.3); Potassium 3.8 mmol/L (3.4-5.0); Sodium 136 mmol/L (137-145)
[2024-06-03 07:39] LABS: Glucose Point of Care 100 mg/dl (65-105)
[2024-06-03] MEDS: CALCIUM CARBONATE (OSCAL) 500 MG TABLET PO (08:07)
[2024-06-03] MEDS: APIXABAN 5 MG TABLET PO ×2 (08:08→21:47)
[2024-06-03] MEDS: FENOFIBRATE NANOCRYSTALLIZED 145 MG TABLET PO (08:08)
[2024-06-03] MEDS: TOPIRAMATE 25 MG TABLET PO ×2 (08:08→16:40)
[2024-06-03] MEDS: ATORVASTATIN 40 MG TABLET PO (08:08)
[2024-06-03] MEDS: CHOLECALCIFEROL 1,000 UNITS TABLET 1000 UNITS PO (08:08)
[2024-06-03] MEDS: CYANOCOBALAMIN 1,000 MCG TABLET 1000 MCG PO (08:08)
[2024-06-03] MEDS: SERTRALINE HCL 50 MG TABLET 100 MG PO (08:08)
[2024-06-03] MEDS: METOPROLOL SUCCINATE EXT REL 25 MG TABCR 75 MG PO (08:08)
[2024-06-03] MEDS: ARIPiprazole 5 MG TABLET PO (08:08)
--- NOTE | 2024-06-03 09:42 | PM.IMPN ---
Progress Note: A&P Assessment and Plan (1) Acute UTI: Code(s): N39.0 - Urinary tract infection, site not specified Status: Acute Assessment and Plan: 06/02/24: UA showed 1+ urine protein, 2+ urine blood, 3+ leukocyte, greater than 100 urine W BC, 4+ bacteria Urine culture positive for Klebs aerogenes (Enterobacter) Patient was started on Rocephin and will transition to Levaquin today 06/03/24: Continue Levaquin (2) Urinary retention with incomplete bladder emptying: Code(s): R33.9 - Retention of urine, unspecified Status: Acute Assessment and Plan: 06/02/24: Renal US shown minimal right hydronephrosis Urology following Creatinine 1.30 Plan for Lasix renal scan today Continue Flomax 06/03/24: Renal scan with Lasix shown relatively decreased right kidney function which is 37% of total renal function, mildly delayed contrast clears from right kidney consistent with low-grade obstruction Plan for cystoscopy today with Urology Continue Flomax Creatinine 1.6 today Urology following (3) Acute kidney injury superimposed on chronic kidney disease: Code(s): N17.9 - Acute kidney failure, unspecified; N18.9 - Chronic kidney disease, unspecified Status: Acute Assessment and Plan: see above (4) Type 2 diabetes mellitus: Qualifiers: Diabetes mellitus long lines operator insulin use: without long lines operator use Diabetes mellitus complication status: with kidney complications Diabetes mellitus complication detail: with chronic kidney disease Chronic kidney disease stage: stage 3 (moderate) Chronic kidney disease stage 3 subtype: stage 3b (GFR 30-44) Qualified Code(s): E11.22 - Type 2 diabetes mellitus with diabetic chronic kidney disease; N18.32 - Chronic kidney disease, stage 3b Code(s): E11.9 - Type 2 diabetes mellitus without complications Status: Acute Assessment and Plan: 06/02/24: Blood sugars ranging 112-137 Hgb A1C 7.5 Accu checks AC/HS Low-dose SSI ordered hypoglycemic protocol in place Diabetic diet ordered 06/03/24: No change to current treatment plan Time Spent With Patient Time with patient: 15 - 25 minutes Subjective Date/time seen: 06/03/24 09:42 Interval history: Interval history: This 74-year-old female who presented to the hospital on 05/30/2024 with weakness, lightheadedness, elevated creatinine. Workup in the hospital included a chest x-ray which was negative. Renal ultrasound shown minimal right hydronephrosis, collapsed urinary bladder with Bay catheter in place. Initial white blood count was 11.3, hemoglobin 10.0, sodium 135, chloride 97, creatinine 2.2, EGFR 22, hemoglobin A1c 7.5. UA was obtained and showed 1+ urine protein, 2+ urine blood, 3+ leukocyte, greater than 100 urine WBC, 4+ bacteria. Urine culture showing Klebs aerogenes enterobactor. Respiratory panel was negative for influenza a and B, RSV, COVID. And patient was started on Rocephin and Urology was consulted. Lasix renal scan shown relatively decreased right kidney function which is 37% of total renal function, mildly delayed contrast clearance from right kidney consistent with low-grade obstruction. 06/03/24: Patient denies any new complaints today. Labs and Imaging reviewed. Review of Systems Review of Systems: 12 systems were reviewed with pertinent positives and negatives per HPI. Except as documented in the HPI, all other systems were reviewed and are negative. All systems reviewed & are unremarkable except as noted in HPI and below Constitutional: Constitutional: Reports as per HPI and Reports no additional constitutional complaints Eyes: Eyes: Reports as per HPI and Reports no additional eye complaints ENT: Reports system reviewed and no additional complaints, except as documented and Reports as per HPI Cardiovascular: Cardiovascular: Reports as per HPI and Reports no additional cardiovascular complaints Respiratory: Respiratory: Reports
[2024-06-03] MEDS: MAGNESIUM SULF 2 GM/WATER 50ML 2 GM/50 ML BAG IVPB (09:54)
[2024-06-03 11:39] LABS: Glucose Point of Care 100 mg/dl (65-105)
--- NOTE | 2024-06-03 13:31 | WPDANESEPPF ---
Anes - Initial Pre Proc Eval Procedure: Operation Date: 06/03/24 14:30 Proposed Procedures p Cystoscopy,Right Retrograde Pyelogram,Right Ureteroscopy,Possible Stent Placement - Addison Mai MD Date/Time: 06/03/24 13:31 Surgeon: Maria C To APRN Pre Op Diagnosis: JAVIER, UTI Patient Data Age: 74 Gender: F Height: 1.65 m Weight: 76 kg Last Vital Signs Temp 36.1 C L 06/03/24 13:13 Pulse 51 L 06/03/24 13:13 Resp 16 06/03/24 13:13 BP 151/60 H 06/03/24 13:13 Pulse Ox 96 06/03/24 13:13 O2 Del Method Room Air 06/03/24 13:13 Allergies Allergy/AdvReac Type Severity Reaction Status Date / Time No Known Allergies Allergy Verified 06/03/24 13:18 Home Medications Medication Instructions Recorded Confirmed Type albuterol sulfate 90 mcg/actuation 2 puff inhalation QID PRN Allergy 05/07/24 05/30/24 History aerosol inhaler Symptoms amitriptyline 25 mg tablet 25 mg PO HS 05/07/24 05/30/24 History aripiprazole 5 mg tablet 5 mg PO DAILY 05/07/24 05/30/24 History atorvastatin 40 mg tablet 40 mg PO DAILY 05/07/24 05/30/24 History calcium carbonate (Calcium 600) 600 mg PO DAILY 05/07/24 05/30/24 History cholecalciferol (vitamin D3) 25 25 mcg PO DAILY 05/07/24 05/30/24 History mcg (1,000 unit) capsule cyanocobalamin (vitamin B-12) 1,000 mcg PO DAILY 05/07/24 05/30/24 History 1,000 mcg tablet (Vitamin B-12) fenofibrate micronized 67 mg 67 mg PO DAILY 05/07/24 05/30/24 History capsule fluticasone propionate 50 1 spray intranasal Q12H 05/07/24 05/30/24 History mcg/actuation nasal spray,suspension sertraline 100 mg tablet 100 mg PO DAILY 05/07/24 05/30/24 History sumatriptan succinate 50 mg tablet 50 mg PO ONCE PRN Migraine Headache 05/07/24 05/30/24 History topiramate 25 mg tablet 25 mg PO DAILY 05/07/24 05/30/24 History trazodone 100 mg tablet 100 mg PO DAILY 05/07/24 05/30/24 History apixaban 5 mg tablet (Eliquis) 5 mg PO Q12HR #60 tabs 05/13/24 05/30/24 Rx metoprolol succinate 25 mg 75 mg PO QAM #30 tabs 05/13/24 05/30/24 Rx tablet,extended release 24 hr (Toprol XL) sulfamethoxazole 800 2 tablet PO Q12H #16 tabs 05/13/24 05/30/24 Rx mg-trimethoprim 160 mg tablet (Bactrim DS) lisinopril 20 mg tablet 20 mg PO DAILY #90 tabs 05/29/24 05/30/24 Rx Laboratory Tests 06/02/24 06/02/24 06/03/24 16:15 19:49 05:45 WBC 9.1 K/mm3 (4.5-10.0) RBC 2.98 L M/mm3 (4.2-5.4) Hgb 9.0 L g/dL (12.0-15.0) Hct 26.7 L % (37.0-47.0) MCV 89.6 D fl (80-100) MCH 30.2 pg (26-34) MCHC 33.7 g/dl (32-36) RDW 12.1 % (11.5-14.5) Plt Count 202 k/mm3 (150-375) MPV 10.2 fl (7.4-10.4) Sodium 136 L mmol/L (137-145) Potassium 3.8 mmol/L (3.4-5.0) Chloride 104 mmol/L (98-107) Carbon Dioxide 22 mmol/L (22-30) Anion Gap 10 mmol/L (4-12) BUN 18 H mg/dL (7-17) Creatinine 1.60 H mg/dL (0.7-1.0) Estim Creat Clear Calc 29 ml/min Estimated GFR 32 L (59 - ) Glucose 117 H mg/dL (65-110) POC Capillary Glucose 124 H mg/dl 156 H mg/dl (65-105) (65-105) Calcium 9.0 mg/dL (8.4-10.2) Magnesium 1.4 L mg/dL (1.6-2.3) 06/03/24 06/03/24 07:32 11:29 WBC RBC Hgb Hct MCV MCH MCHC RDW Plt Count MPV Sodium Potassium Chloride Carbon Dioxide Anion Gap BUN Creatinine Estim Creat Clear Calc Estimated GFR Glucose POC Capillary Glucose 100 mg/dl 100 mg/dl (65-105) (65-105) Calcium Magnesium Patient hx anesthesia problems: none Family hx anesthesia problems: none Results Review: All pre-operative results and documents have bee
--- NOTE | 2024-06-03 15:00 | SUR.OPER ---
Urine cytology sent with GREG Vaca and left with Dr. Ji
[2024-06-03] MEDS: LACTATED RINGERS 1,000 ML 30 ML IV CONT (15:16)
[2024-06-03 15:33] LABS: Glucose Point of Care 105 mg/dl (65-105)
[2024-06-03] MEDS: fentaNYL CITRATE INJ (*CRX) 100 MCG/2 ML VIAL 25 MCG IV PUSH ×2 (16:05→16:12)
--- NOTE | 2024-06-03 16:11 | P.OP_ITS ---
Procedure Note - Detailed Date of Procedure 06/03/24 Pre-op Diagnosis Right hydronephrosis Post-op Diagnosis Same Procedure Performed Cystoscopy, right retrograde pyelography, right ureteroscopy with ureteral dilatation, right ureteral stent placement Surgeon Addison Mai MD Anesthesia General Description of Procedure Patient is brought to the operative suite was prepped draped in routine sterile fashion while in dorsal lithotomy position after the uneventful induction of a general LMA anesthetic. Cystoscopy was undertaken with a 19 F rigid cystoscope. Urine was collected for cytology. The bladder shows mild diffuse hyperemia consistent with a recent infection. She has a single orthotopic ureteral orifice bilaterally. An 8 F bulb-tipped catheter was used to obtain a right retrograde pyelogram. There is an area of subtle narrowing just read the right ureter crosses the iliac vessels. There were no apparent filling defects in the ureter collecting system. Dilated the distal ureter an 8 F 10 F dilator over a 0.035 in glidewire. Ureteroscopy was undertaken with a flexible digital ureter al scope. Collecting system and proximal her ureter are normal. In the mid ureter, just over the mid sacrum, there is a clear area of ureteral stricture. This is quite pronounced and there is nothing to suggest neoplasm at that site. Just proximal to that there had been purulent urine released with placement of a guidewire. 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 The more distal ureter was normal. I dilated that stricture with an 18F atmosphere ureteral balloon dilator at 15 atmospheres for 4 minutes. A 16 F variable length ureteral stent was then placed which I intend to me for 4-6 weeks. Urine Output 400 Drains No Packing No Pathology Yes
[2024-06-03] MEDS: HYDROcodone/acetaminophen (*CRX) 5-325 MG TABLET 1 TAB PO ×2 (16:40→21:46)
[2024-06-03 16:52] LABS: Glucose Point of Care 110 mg/dl (65-105)
[2024-06-03 20:54] LABS: Glucose Point of Care 161 mg/dl (65-105)
[2024-06-03] MEDS: TAMSULOSIN HCL 0.4 MG CAPSULE PO (21:47)
[2024-06-03] MEDS: traZODone HCL 50 MG TABLET 100 MG PO (21:47)
[2024-06-04 00:09] VITALS: BP 164/58; PULSE 52; RESP 18; TEMP 36.2; O2SAT 99
[2024-06-04 04:09] VITALS: BP 110/50; PULSE 52; RESP 18; TEMP 36.2; O2SAT 98
[2024-06-04 06:34] LABS: Hematocrit 26.3 % (37.0-47.0); Hemoglobin 8.8 g/dL (12.0-15.0); Mean Corpuscular HGB Conc 33.5 g/dl (32-36); Mean Corpuscular Hemoglobin 30.2 pg (26-34); Mean Corpuscular Volume 90.4 fl (80-100); Mean Platelet Volume 10.2 fl (7.4-10.4); Platelet Count Result 211 k/mm3 (150-375); Red Blood Count 2.91 M/mm3 (4.2-5.4); Red Cell Distribution Width 12.5 % (11.5-14.5); White Blood Count 17.3 K/mm3 (4.5-10.0)
--- NOTE | 2024-06-04 06:44 | WPDUROPN2 ---
Progress Note: A&P Assessment and Plan (1) Hydronephrosis, right: Code(s): N13.30 - Unspecified hydronephrosis Status: Acute Assessment and Plan: Right hydronephrosis d/t true mid-ureteral stricture. I expect addressing obstruction (dilatation and stent placement) will help with renal function. Home today fine with me. F/U: 2-3 weeks. Subjective Subjective Date/Time Seen: 06/04/24 06:44 Interval history: Comfortable, tolerating ureteral stent Review of Systems Cardiovascular: Cardiovascular: Denies chest pain, Denies lightheadedness, Denies palpitations and Denies dyspnea Respiratory: Respiratory: Denies dyspnea Gastrointestinal: Gastrointestinal: Denies diarrhea, Denies nausea and Denies vomiting Genitourinary: Genitourinary: Denies hematuria and Denies dysuria Endocrine: Endocrine: Denies palpitations Exam Const: General: no acute distress Resp: Effort & Inspection: normal respiratory effort GI: Inspection: non-distended GI Palp: No abdominal tenderness and No Guarding due to palpation present (GI) Auscultation: normal bowel sounds Objective Data Vital Signs Vital Signs: Vital Signs - 24 hr 06/03/24 08:08 06/03/24 13:13 06/03/24 15:16 Temperature 96.9 F L 97.5 F L Pulse Rate 51 L 54 L Respiratory Rate 16 14 Blood Pressure 151/60 H 168/70 H Pulse Oximetry 96 100 Oxygen Delivery Room Air Room Air Simple Face Mask Oxygen Flow Rate 8 06/03/24 15:30 06/03/24 15:45 06/03/24 16:00 Temperature Pulse Rate 53 L 52 L 48 L Respiratory Rate 18 14 18 Blood Pressure 161/66 H 174/58 H 173/65 H Pulse Oximetry 94 98 98 Oxygen Delivery Nasal Cannula Nasal Cannula Nasal Cannula Oxygen Flow Rate 2 2 2 06/03/24 16:15 06/03/24 16:26 06/03/24 16:35 Temperature 97.4 F L Pulse Rate 49 L 49 L 54 L Respiratory Rate 14 14 18 Blood Pressure 147/60 H 141/51 H 165/65 H Pulse Oximetry 99 96 100 Oxygen Delivery Nasal Cannula Nasal Cannula Oxygen Flow Rate 2 2 06/03/24 16:50 06/03/24 17:20 06/03/24 18:20 Temperature 97.6 F 97.5 F L 97.3 F L Pulse Rate 60 55 L 54 L Respiratory Rate 18 16 18 Blood Pressure 165/65 H 177/65 H 171/64 H Pulse Oximetry 99 99 99 Oxygen Delivery Oxygen Flow Rate 06/03/24 19:09 06/03/24 20:09 06/03/24 20:00 Temperature 97 F L 97.1 F L Pulse Rate 50 L 52 L Respiratory Rate 18 18 Blood Pressure 169/59 H 162/60 H Pulse Oximetry 97 98 Oxygen Delivery Room Air Oxygen Flow Rate 06/04/24 00:09 06/04/24 04:09 Temperature 97.1 F L 97.2 F L Pulse Rate 52 L 52 L Respiratory Rate 18 18 Blood Pressure 164/58 H 110/50 L Pulse Oximetry 99 98 Oxygen Delivery Oxygen Flow Rate Intake/Output Intake/Output: Intake & Output 06/01/24 06/02/24 06/03/24 06/04/24 23:59 23:59 23:59 23:59 Intake Total 3379.3 4286 520 100 Output Total 2650 5950 1675 Balance 729.3 -7623 -6555 100 Meds/Results Medications: Active Medications Generic Name Dose Route Start Last Admin Trade Name Freq PRN Reason Stop Dose Admin Acetaminophen 650 mg 05/30/24 18:06 Acetaminophen 325 Mg Tablet PO Q4H PRN Mild Pain (1-3) or Fever Hydrocodone Bitart/Acetaminophen 1 tab 05/30/24 18:06 06/03/24 21:46 Hydrocodone/Acetaminophen (*Crx) 5-325 Mg Tablet PO 1 tab Q4H PRN Administration Pain Rated 4-6 Apixaban 5 mg 05/31/24 09:00 06/03/24 21:47 Apixaban 5 Mg Tablet PO 5 mg Q12HR SHIRLEY Administration Aripiprazole 5 mg 05/31/24 09:00 06/03/24 08:08 Aripiprazole 5 Mg Tablet PO 5 mg DAILY SHIRLEY Administration Atorvastatin Calcium 40 mg 05/31/24 09:00 06/03/24 08:08 Atorvastatin 40 Mg Tablet PO 40 mg DAILY SHIRLEY Administration Calcium Carbonate 500 mg 05/31/24 09:00 06/03/24 08:07 Calcium Carbonate (Oscal) 500 Mg Tablet PO 06/30/24 08:59 500 mg DAILY SHIRLEY Administration Cyanocobalamin 1,000 mcg 05/31/24 09:06/03/24 08:08 Cyanocobalamin 1,000 Mcg Tablet PO 1,000 m
[2024-06-04 06:48] LABS: Anion Gap 10 mmol/L (4-12); Blood Urea Nitrogen 19 mg/dL (7-17); Calcium 8.9 mg/dL (8.4-10.2); Carbon Dioxide 22 mmol/L (22-30); Chloride 101 mmol/L (98-107); Estimated CRCL calculation 29 ml/min; Estimated Glomerular Filt Rate 32; Glucose 115 mg/dL (65-110); Magnesium 1.7 mg/dL (1.6-2.3); Sodium 133 mmol/L (137-145)
[2024-06-04 08:14] LABS: Glucose Point of Care 109 mg/dl (65-105)
[2024-06-04 08:22] VITALS: BP 112/50; PULSE 47; RESP 16; TEMP 36.4; O2SAT 98
[2024-06-04] MEDS: SERTRALINE HCL 50 MG TABLET 100 MG PO (08:26)
[2024-06-04] MEDS: CALCIUM CARBONATE (OSCAL) 500 MG TABLET PO (08:26)
[2024-06-04] MEDS: ATORVASTATIN 40 MG TABLET PO (08:26)
[2024-06-04] MEDS: APIXABAN 5 MG TABLET PO (08:26)
[2024-06-04] MEDS: FENOFIBRATE NANOCRYSTALLIZED 145 MG TABLET PO (08:26)
[2024-06-04] MEDS: TOPIRAMATE 25 MG TABLET PO (08:26)
[2024-06-04] MEDS: CYANOCOBALAMIN 1,000 MCG TABLET 1000 MCG PO (08:27)
[2024-06-04] MEDS: CHOLECALCIFEROL 1,000 UNITS TABLET 1000 UNITS PO (08:27)
[2024-06-04] MEDS: ARIPiprazole 5 MG TABLET PO (08:27)
[2024-06-04 09:00] VITALS: PULSE 47
[2024-06-04] MEDS: SODIUM CHLORIDE 0.9% IV 500 ML IV CONT ×2 (09:40→13:07)
[2024-06-04 11:03] VITALS: O2SAT 95
--- NOTE | 2024-06-04 11:36 | WPDANLDPN2 ---
Anes-Prog Note L&D Date/Time: 06/04/24 11:36 Neuro status: Neuro function grossly intact. Cardiovascular status: normal Respiratory status: normal Airway patency: baseline Mental status: baseline Post-Op hydration status: normal Vital Signs: Last Vital Signs Temp 36.4 C 06/04/24 08:22 Pulse 47 L 06/04/24 08:22 Resp 16 06/04/24 08:22 BP 112/50 L 06/04/24 08:22 Pulse Ox 95 06/04/24 11:03 O2 Del Method Room Air 06/04/24 11:03 O2 Flow Rate 2 06/03/24 16:26 Pain score (VAS): 0 I/O: Intake & Output 06/03/24 06/04/24 06/04/24 23:59 07:59 15:59 Intake Total 520 100 480 Output Total 400 Balance 120 100 480 Post-procedural complaints: none Patient feedback: Patient satisfied with anesthetic care.
[2024-06-04 11:47] LABS: Glucose Point of Care 157 mg/dl (65-105)
[2024-06-04 12:09] VITALS: BP 110/55; PULSE 54; RESP 16; TEMP 36.4; O2SAT 93
[2024-06-04] MEDS: levoFLOXacin 750 MG TABLET PO (14:35)
--- NOTE | 2024-06-04 15:17 | PM.DS ---
DS: Admitting Diagnosis Discharge Date 06/04/24 Admitting Diagnosis Acute UTI Urinary retention with incomplete bladder emptying Acute kidney injury superimposed on chronic kidney disease Type 2 diabetes mellitus Essential hypertension Anemia DS: Discharge Diagnosis Discharge Diagnosis (1) Acute UTI: Code(s): N39.0 - Urinary tract infection, site not specified Status: Acute (2) Urinary retention with incomplete bladder emptying: Code(s): R33.9 - Retention of urine, unspecified Status: Acute (3) Acute kidney injury superimposed on chronic kidney disease: Code(s): N17.9 - Acute kidney failure, unspecified; N18.9 - Chronic kidney disease, unspecified Status: Acute (4) Type 2 diabetes mellitus: Qualifiers: 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 insulin use: without mcfp use Diabetes mellitus complication status: with kidney complications Diabetes mellitus complication detail: with chronic kidney disease Chronic kidney disease stage: stage 3 (moderate) Chronic kidney disease stage 3 subtype: stage 3b (GFR 30-44) Qualified Code(s): 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 Workup in the hospital included a chest x-ray which was negative. Renal ultrasound shown minimal right hydronephrosis, collapsed urinary bladder with Bay catheter in place. Initial white blood count was 11.3, hemoglobin 10.0, sodium 135, chloride 97, creatinine 2.2, EGFR 22, hemoglobin A1c 7.5. UA was obtained and showed 1+ urine protein, 2+ urine blood, 3+ leukocyte, greater than 100 urine WBC, 4+ bacteria. Urine culture showing Klebs aerogenes Enterobacter. Respiratory panel was negative for influenza a and B, RSV, COVID. And patient was started on Rocephin and Urology was consulted. Lasix renal scan shown relatively decreased right kidney function which is 37% of total renal function, mildly delayed contrast clearance from right kidney consistent with low-grade obstruction. Urology took patient to the OR yesterday and performed a cystoscopy with right ureteroscopy with urethral dilation and right ureteral stent placement. Patient tolerated the procedure well. Labs reviewed and are unremarkable. She is stable for discharge at this time. She will need to follow up with Urology in 2-3 weeks. Final diagnosis: Acute urinary tract infection urinary retention, acute kidney injury superimposed on chronic kidney disease Status at Discharge Cognitive/behavioral status at discharge: Alert oriented x4 Functional status at discharge: independent ambulation Overall status at discharge: patient is progressing back to baseline Time Spent with Patient Time attestation: Total time spent providing and/or coordinating discharge services: Time spent: Greater than 30 minutes Exam Narrative: General: In no acute distress Cardiac: Normal S1 and S2. Bradycardia in the 50s, No murmur, gallops or friction rubs, peripheral pulses intact. Respiratory: Lungs clear to auscultation, no adventitious lung sounds, currently on room air Gastrointestinal: soft, non-distended, non-tender, normoactive bowel sounds. : Voiding without difficulty, pink-tinged urine Neuro: Alert and oriented x4 DS: Data Data Completed and Pending Completed studies during hospitalization: Renal ultrasound Renal scan with medication nuclear medicine Retrograde pyelogram Pending studies at discharge: Pending at discharge
== END 2024-06-04 15:48 | disposition home or self-care (01) | DRG 660 ==
LOC: ANHED 17:44 → ANH3MEDSUR 18:55
PROVIDERS: Family Medicine; Internal Medicine; Nurse Practitioner Family; Urology; Admitting Provider General Practice; Emergency Provider Emergency Medicine; PCP Clinical Nurse Specialist; Visit Provider Nurse Practitioner Acute Care
PROC: 0T768DZ Dilation of Right Ureter with Intraluminal Device, Via Natural or Artificial Opening Endoscopic (ICD-10-PCS; CPT 52352; principal; 2024-06-03 14:30)
DX: N39.0 Urinary tract infection, site not specified (principal); N17.9 Acute kidney failure, unspecified; B96.89 Other specified bacterial agents as the cause of diseases classified elsewhere; N13.30 Unspecified hydronephrosis; I12.9 Hypertensive chronic kidney disease with stage 1 through stage 4 chronic kidney disease, or unspecified chronic kidney disease; E11.22 Type 2 diabetes mellitus with diabetic chronic kidney disease; N18.32 Chronic kidney disease, stage 3b; R33.9 Retention of urine, unspecified; E78.5 Hyperlipidemia, unspecified; I48.91 Unspecified atrial fibrillation; F41.9 Anxiety disorder, unspecified; E86.0 Dehydration; N13.9 Obstructive and reflux uropathy, unspecified; D63.8 Anemia in other chronic diseases classified elsewhere; Z87.442 Personal history of urinary calculi; Z20.822 Contact with and (suspected) exposure to COVID-19
CPT/HCPCS: 36415; 74420; 76775; 78708; 80048; 80053; 81001; 82607; 82728; 82746; 82948; 83036; 83540; 83550; 83735; 84155; 84165; 84484; 85025; 85027; 85046; 87077; 87086; 87088; 87186; 87637; 88108; 93005; 96361; 96365; 96366; 96367; 99285; A9270; A9562; C1726; C1758; C1769; C2617; G0378; J0461; J0696; J1100; J1596; J1940; J2371; J2405; J2704; J3010; J3475; J7030; J7040; J7120; Q9966

== ENCOUNTER 2024-07-09 14:13 | Outpatient (CLI) | payer MEDICARE, SELFPAY ==
[2024-07-09 19:32] LABS: Basophils Absolute Auto 0.1 K/mm3 (0.0-0.1); Basophils Percent Auto 0.5 % (0.2-1.2); Eosinophils Absolute Auto 0.3 K/mm3 (0-0.3); Eosinophils Percent Auto 2.5 % (0-4.4); Hematocrit 33.8 % (37.0-47.0); Hemoglobin 11.2 g/dL (12.0-15.0); Immature Granulocyte Absolute 0.03 K/mm3 (0.00-0.031); Immature Granulocyte Percent A 0.3 % (0-0.5); Lymphocytes Absolute Auto 2.37 K/mm3 (0.9-3.2); Lymphocytes Percent Auto 23.2 % (18.3-44.2); Mean Corpuscular HGB Conc 33.1 g/dl (32-36); Mean Corpuscular Hemoglobin 30.4 pg (26-34); Mean Corpuscular Volume 91.8 fl (80-100); Mean Platelet Volume 11.2 fl (7.4-10.4); Monocytes Absolute Auto 0.6 K/mm3 (0.1-0.6); Monocytes Percent Auto 6.1 % (2.6-8.5); Neutrophils Absolute Auto 6.9 K/mm3 (1.3-6.7); Neutrophils Percent Auto 67.4 % (45.5-73.1); Platelet Count Result 231 k/mm3 (150-375); Red Blood Count 3.68 M/mm3 (4.2-5.4); Red Cell Distribution Width 14.1 % (11.5-14.5); White Blood Count 10.2 K/mm3 (4.5-10.0)
[2024-07-09 20:12] LABS: Bacteria Urine 1+ /hpf; Need Manual Microscopic Reviewed; RBC Urine >100 /hpf (0-2); Squamous Epithelial Cell Urine Few /hpf (Few); WBC Urine >100 /hpf (0-3)
[2024-07-09 20:13] LABS: Add Urine Microscopic? YES; Appearance Urine Turbid (Clear); Bilirubin Urine 1+ (Negative); Blood Urine 3+ (Negative); Color Urine Red (Yellow); Glucose Urine UA Negative (Negative); Ketones Urine Negative (Negative); Leukocyte Esterase Ur 2+ LEU/UL (Negative); Nitrate Urine Negative (Negative); Protein Urine 3+ mg/dL (Negative); Specific Grav Ur 1.015 (1.001-1.035); Urobilinogen Urine 0.2 mg/dL (<2.0)
[2024-07-09 21:21] LABS: Alanine Aminotransferase 36 U/L (6-35); Albumin Level 4.1 g/dL (3.5-5.1); Alkaline Phosphatase 66 U/L (38-126); Anion Gap 10 mmol/L (4-12); Aspartate Amino Transferase 49 U/L (14-36); Bilirubin,Total 0.4 mg/dL (0.2-1.3); Blood Urea Nitrogen 23 mg/dL (7-17); Calcium 10.1 mg/dL (8.4-10.2); Carbon Dioxide 28 mmol/L (22-30); Chloride 101 mmol/L (98-107); Estimated Glomerular Filt Rate 34; Glucose 110 mg/dL (65-110); Potassium 4.2 mmol/L (3.4-5.0); Sodium 139 mmol/L (137-145)
== END 2024-07-09 14:14 | disposition home or self-care (01) ==
LOC: ANHGOSHLAB 14:14
PROVIDERS: PCP Clinical Nurse Specialist; Visit Provider Clinical Nurse Specialist
DX: A41.9 Sepsis, unspecified organism (principal); D64.9 Anemia, unspecified; N39.0 Urinary tract infection, site not specified; R33.9 Retention of urine, unspecified
CPT/HCPCS: 36415; 80053; 81001; 85025; 87086

== ENCOUNTER 2024-07-09 14:24 | Outpatient (CLI) | payer MEDICARE, SELFPAY ==
--- NOTE | ~2024-07-09 | XR_ITS ---
XR abdomen/kub 1V Ordering provider: ROMELIA Russell History: . right side back pain after bending over for a long time . Comparison: None. FINDINGS: BOWEL: Nonobstructive bowel gas pattern. ORGANOMEGALY: None. SIGNIFICANT PATHOLOGIC CALCIFICATIONS: Possible right lower ureteric stone. Right double-J stent. Pos sible Faint calcification in the left kidney. OTHER: No free air is seen under the diaphragm. Bilateral hip mild to moderate osteoarthritic changes . IMPRESSION: NO ACUTE ABDOMINAL FINDINGS. Right double-J stent. Possible stone in the right lower ureter. Reviewed, dictated and finalized at location A.
--- NOTE | ~2024-07-09 | XR_ITS ---
XR knee RT 3V Ordering provider: ROMELIA Russell History: . fall 2 years ago pain and swelling medial side of knee . Comparison: None. FINDINGS: BONES: No acute fracture or dislocation. JOINT SPACES: Normal. Chondrocalcinosis seen in the medial and lateral menisci. SOFT TISSUES: Normal. IMPRESSION: No acute osseous abnormality right knee. Chondrocalcinosis. Reviewed, dictated and finalized at location A.
== END 2024-07-09 14:25 | disposition home or self-care (01) ==
LOC: GOSHIMG 14:24
PROVIDERS: PCP Clinical Nurse Specialist; Visit Provider Clinical Nurse Specialist
DX: M54.50 Low back pain, unspecified (principal); M25.561 Pain in right knee
CPT/HCPCS: 73562; 74018

== ENCOUNTER 2024-07-18 13:29 | Outpatient (CLI) | payer MEDICARE, SELFPAY ==
[2024-07-18 15:45] LABS: Alanine Aminotransferase 16 U/L (6-35); Alkaline Phosphatase 71 U/L (38-126); Anion Gap 9 mmol/L (4-12); Aspartate Amino Transferase 25 U/L (14-36); Bilirubin,Total 0.3 mg/dL (0.2-1.3); Blood Urea Nitrogen 27 mg/dL (7-17); Calcium 9.5 mg/dL (8.4-10.2); Carbon Dioxide 27 mmol/L (22-30); Chloride 100 mmol/L (98-107); Estimated Glomerular Filt Rate 30; Glucose 153 mg/dL (65-110); Potassium 3.7 mmol/L (3.4-5.0); Sodium 136 mmol/L (137-145)
[2024-07-18 15:47] LABS: Add Urine Microscopic? YES; Appearance Urine Clear (Clear); Bacteria Urine None Seen /hpf; Bilirubin Urine Negative (Negative); Blood Urine 3+ (Negative); Color Urine Yellow (Yellow); Glucose Urine UA Negative (Negative); Ketones Urine Negative (Negative); Leukocyte Esterase Ur 1+ LEU/UL (Negative); Nitrate Urine Negative (Negative); Non Pathogenic Casts 0-2; Protein Urine 1+ mg/dL (Negative); RBC Urine >100 /hpf (0-2); Specific Grav Ur 1.012 (1.001-1.035); Squamous Epithelial Cell Urine None Seen /hpf (Few); Urobilinogen Urine 0.2 mg/dL (<2.0); WBC Urine 21-50 /hpf (0-3); pH Urine 6.5 (5.0-9.0)
[2024-07-18 15:57] LABS: Basophils Percent Auto 0.5 % (0.2-1.2); Eosinophils Absolute Auto 0.2 K/mm3 (0-0.3); Eosinophils Percent Auto 2.9 % (0-4.4); Hematocrit 34.4 % (37.0-47.0); Hemoglobin 11.1 g/dL (12.0-15.0); Immature Granulocyte Absolute 0.02 K/mm3 (0.00-0.031); Immature Granulocyte Percent A 0.2 % (0-0.5); Lymphocytes Absolute Auto 1.96 K/mm3 (0.9-3.2); Lymphocytes Percent Auto 24.5 % (18.3-44.2); Mean Corpuscular HGB Conc 32.3 g/dl (32-36); Mean Corpuscular Hemoglobin 29.8 pg (26-34); Mean Corpuscular Volume 92.5 fl (80-100); Mean Platelet Volume 11.6 fl (7.4-10.4); Monocytes Absolute Auto 0.4 K/mm3 (0.1-0.6); Monocytes Percent Auto 5.2 % (2.6-8.5); Neutrophils Absolute Auto 5.3 K/mm3 (1.3-6.7); Neutrophils Percent Auto 66.7 % (45.5-73.1); Platelet Count Result 223 k/mm3 (150-375); Red Blood Count 3.72 M/mm3 (4.2-5.4); Red Cell Distribution Width 13.7 % (11.5-14.5)
== END 2024-07-18 13:30 | disposition home or self-care (01) ==
LOC: ANHGOSHLAB 13:31
PROVIDERS: PCP Clinical Nurse Specialist; Visit Provider Clinical Nurse Specialist
DX: N17.9 Acute kidney failure, unspecified (principal); A41.9 Sepsis, unspecified organism
CPT/HCPCS: 36415; 80053; 81001; 85025; 87086; 87088

== ENCOUNTER 2024-09-04 12:02 | Outpatient (CLI) | payer MEDICARE, SELFPAY ==
--- NOTE | ~2024-09-04 | XR_ITS ---
XR hip LT min 2V 09/04/2024 12:12 Indication: Left hip pain Procedure: 2 views left Comparison: No prior studies for comparison. Findings: There is mild osteoarthritis of the left hip. No fracture, subluxation or dislocation. Ther e is osteitis pubis. There is lower lumbar spondylosis. No fracture or traumatic malalignment. Impression: 1: Mild osteoarthritis of the left hip. Reviewed, dictated and finalized at location B. RISK SPECIALIST Impression: 1: Mild osteoarthritis of the left hip.
== END 2024-09-04 12:03 | disposition home or self-care (01) ==
LOC: GOSHIMG 12:04
PROVIDERS: PCP Internal Medicine; Visit Provider Nurse Practitioner
DX: M16.12 Unilateral primary osteoarthritis, left hip (principal)
CPT/HCPCS: 73502

== ENCOUNTER 2024-10-10 11:00 | Outpatient (RCR) | payer MEDICARE, SELFPAY ==
--- NOTE | 2024-09-18 08:00 | OPREHPOC ---
Outpatient Therapy Plan of Care This is a Multidisciplinary Plan of Care that may contain components documented by all disciplines (PT, OT, and ST.) PT Problem 1 PT Problem #1 Knowledge Deficit PT Goal 1 Goal / Goal Update Pt to be IND with issued HEP Target Visit 8 PT Problem 2 PT Problem #2 Pain PT Goal 1 Goal / Goal Update 1. Pt to report hip pain no greater than 3/10 in the last week. 2. Pt to report 75% improvement in overall symptoms. 3. Pt to report being able to sleep through the night without being woken d/t pain. Target Visit 8 PT Problem 3 PT Problem #3 Impaired Range of Motion PT Goal 1 Goal / Goal Update 1. Pt to demonstrate equal passive hip ROM stephan Target Visit 8 PT Problem 4 PT Problem #4 Impaired Strength PT Goal 1 Goal / Goal Update 1. Pt to improve hip extension strength to 4+/5 to demonstrates improved lifting mechanics 2. Pt to demonstrate a 20lb lift and carry from ground level without an increase in symptoms. Target Visit 10
--- NOTE | 2024-09-18 08:00 | PTOPEVAL1 ---
Assessment and note entered by Reagan Mcgarry, PT, DPT Evaluation Information Assessment Status Evaluation Diagnosis L hip pain ICD-10 Condition Codes (PT) Pain in left hip M25.552 Subjective Information Pt reports lateral L hip pain for the last 3 weeks . She states she has gout in her R knee and thinks her hip pain is from compensating. Pt reports a fall 4 days ago, states she tripped over her feet, hitting her head on the ground. Pt states she has pain at rest, her pain increases with activity. States sleeping has been difficult d/t not being able to get comfortable. Pt states a 7/10 at rest and a 10/10 with activity. Pt is retired but watches her grandkids throughout the week. States she does no activity, but going to doctors appointments is her exercise. Reported Pain Level Pain Score 7: Self Report Assessment PT Clinical Summary Pt presents to therapy today for her initial evaluation with a diagnosis of L hip pain. Today she demonstrates decreased L hip ROM when compared to her R hip, ROM is limited by pain. She has generalized decreased hip strength throughout and resistance increases pain. She ambulates favoring her L side. She demonstrates asymmetric pelvic posture in supine. There is notable tenderness to palpation and mild edema at the L greater trochanter. Skilled therapy services are indicated to address the deficits noted above, to manage pain, and to return to prior level of function. Plan of Care Interventions Electrical Stimulation,Gait Training,Hot Pack/Cold Pack,Manual Therapy,Neuro Re-education,Patient/ Caregiver Educati,Therapeutic Activities, Therapeutic Exercise PT Services Indicated Yes Treatment Frequency and 2x/wk for 10 visits Duration These treatments will address the objective and functional deficits as defined above. The patient will be advanced safely and appropriately in order for the patient to progress towards his/her prior level of function. Additional exercises will be introduced and as well as a comprehensive home exercise program upon discharge, if needed, ?to ensure carryover of functional gains achieved in the clinic. This treatment plan has been reviewed and agreement upon by the patient.
--- NOTE | 2024-10-15 11:17 | PCPTNOTE ---
Patient's granddaughter called to cancel therapy appointment for patient this date.
--- NOTE | 2024-10-17 11:42 | PCPTNOTE ---
Patient no show no call this date. Called and left voicemail.
--- NOTE | 2024-10-23 08:10 | PCPTNOTE ---
Patients scheduled appointment 10/20/24 was cancelled due to the treating therapist being out of the office d/t illness.
--- NOTE | 2024-10-23 11:23 | PCPTNOTE ---
Patient did not show up for scheduled appointment this date. LVM with follow up instructions.
--- NOTE | 2024-11-24 08:42 | PTOPDC ---
Assessment and note entered by Reagan Mcgarry, PT, DPT Evaluation Information Assessment Status Discharge - Pt Not Present Diagnosis L hip pain ICD-10 Condition Codes (PT) Pain in left hip M25.552 Subjective Information Pt did not show up to her scheduled re-evaluation on 10/24. Called and LVM at that time with follow up instructions and have not heard back from pt since. Assessment PT Clinical Summary Pt was initially evaluated on 09/17/24. She attended 4 of 10 scheduled appointments, she cancelled or no showed the remaining appointments. Pt will be discharged at this time per the cancellation policy.
== END 2024-11-24 10:41 | disposition home or self-care (01) ==
LOC: ANHGOSHPT 11:00
PROVIDERS: PCP Internal Medicine; Visit Provider Nurse Practitioner
DX: M25.552 Pain in left hip (principal)
CPT/HCPCS: 97110; 97140; 97161

== ENCOUNTER 2025-01-15 14:40 | Outpatient (NON) | payer MEDICARE, SELFPAY ==
--- OUTSIDE RECORDS SUMMARY | 2025-01-15 15:04 | XMS_ITS | Clinical Summary ---
Author Organization [facility] Address [facility] [place] [address] Care Team Providers Care Service Station Attendant Name Role Phone Hanna Ch MANAGER POLICY Primary Care Provider + [phone] Allergies No known active allergies Medications ELIQUIS 5 MG tablet Take 1 tablet (5 mg total) by mouth every 12 (twelve) hours. 11/21/2024 Active ARIPiprazole (ABILIFY) 5 MG tablet Take 1 tablet (5 mg total) by mouth daily. 08/25/2024 Active atorvastatin (LIPITOR) 40 MG tablet Take 1 tablet (40 mg total) by mouth daily. 11/05/2024 Active fenofibrate micronized (LOFIBRA) 67 MG Cap capsule Take 1 capsule (67 mg total) by mouth daily. 10/20/2024 Active lisinopril (PRINIVIL) 20 MG tablet Take 1 tablet (20 mg total) by mouth daily. 09/01/2024 Active sertraline (ZOLOFT) 50 MG tablet Take 1 tablet (50 mg total) by mouth daily for 30 days. 30 tablet 12/13/2024 01/13/20 25 cefdinir (OMNICEF) 300 MG Cap capsule Take 1 capsule (300 mg total) by mouth 2 (two) times daily for 4 days. 8 capsule 12/13/2024 12/17/19 25 Active Problems Problem Noted Date Diagnosed Date Pyelonephritis 12/10/2024 Encounters Date Type Department Care Team Description 12/16/2024 Hospital Follow-up Call [facility] [place] [address] Teresa Dietrich LPN Follow Up Call (AGNES 12/10-12/12/24) 12/10/2024 7:57 AM LEAD BURNER - 12/12/2024 5:29 PM LEAD BURNER Hospital Encounter [facility] [address] [place] [address] Keren Palmer MD Goldberg, Deborah, MD Islam, Maaroof, MD Near Syncope; Fall Discharge Disposition: Home or Self Care (Routine Discharge) 12/10/2024 Travel from Last 3 Months Social History Tobacco Use Types Packs/Day Years Used Date Smoking Tobacco: Never Smokeless Tobacco: Never Tobacco Cessation:Counseling Given: Not Answered Alcohol Use Standard Drinks/Week Comments Not Currently 0 (1 standard drink = 0.6 oz pur e alcohol) [facility] [employer] Answer Date Recorded In the past 12 months has [employer], gas, oil, or water [employer] threatened to shut off services in your home? No 12/11/2024 Humiliation, Afraid, Rape, and Kick questionnair e Answer Date Recorded Within the last year, have y ou been afraid of your partner or ex-partner? No 12/11/2024 Within the last year, have y ou been humiliated or emotionally abused in other ways by your partner or ex-partner? No Within the last year, have y ou been kicked, hit, slapped, or otherwise physically hurt by your partner or ex-partner? No 12/11/2024 Within the last year, have y ou been raped or forced to have any kind of sexual activity by your partner or ex-partner? No 12/11/2024 Social Connection and Isolat ion Panel [NHANES] Answer Date Recorded In a typical week, how many times do you talk on the phone with family, friends, or neighbors? Three times a week 12/11/2024 How often do you get togethe r with friends or relatives? Twice a week 12/11/2024 How often do you attend [facility] or congregation services? More than 4 times per year 12/11/2024 Do you belong to any clubs o r organizations such as yazidi groups, unions, fraternal or athletic groups, or school groups? No 12/11/2024 How often do you attend meet ings of the clubs or organizations you belong to? More than 4 times per year 12/11/2024 Are you , , di vorced, , never , or living with a partner? 12/11/2024 AUDIT-C Answer Date Recorded Q1: How often do you have a drink containing alcohol? Never 12/11/2024 Q2: How many drinks containi ng alcohol do you have on a typical day when you are drinking? Patient does not drink Q3: How often do you have si x or more drinks on one occasion? Never 12/11/2024 Overall Financial Resource Strain (CARDIA) Answe r Date Recorded How hard is it for you to pa y for the very basics like food, housing, medical care, and heating? Not hard at all 12/11/2024 [facility] - Occupational Stress Questionnaire Answer Date Recorded Do you feel stress - tense, restless, nervous, or anxious, or unable to sleep at night because your mind is troubled all the time - these days? Not at all 12/11/2024 Exercise Vital Sign Answer Date Recorde d On average, how many days pe r week do you engage in moderate to strenuous exercise (like a brisk walk)? 3 days 12/11/2024 On average, how many minutes do you engage in exercise at this level? 20 min 12/11/2024 Hunger Vital Sign Answer Date Recorded Within the past 12 months, y ou worried that your food would run out before you got the money to buy more. Never true 12/11/19 25 Within the past 12 months, t he food you bought just didn't last and you didn't have money to get more. Never true 12/11/2024 PRAPARE - Transportation Answer Date Re corded In the past 12 months, has l ack of transportation kept you from medical appointments or from getting medications? No 11/29 In the past 12 months, has l ack of transportation kept you from meetings, work, or from getting things needed for daily living? No 12/11/2024 Housing Stability Vital Sign Answer Tobi e Recorded In the last 12 months, was t here a time when you were not able to pay the mortgage or rent on time? No 12/11/2024 In the past 12 months, how m any times have you moved where you were living? 0 12/11/2024 At any time in the past [address] [facility], were you homeless or living in a mcc (including now)? No 12/11/2024 Comments No Sex and Gender Information Value Date Recorded Sex Assigned at Female 12/10/2024 8:16 AM LEAD BURNER Legal Sex Female 2:58 PM LEAD BURNER Gender Identity Not on file Sexual Orientation Not on file Last Filed Vital Signs Vital Sign Reading Time Taken Comments Blood Pressure 126/53 12/12/2024 3:23 PM LEAD BURNER Pulse 65 12/12/2024 3:23 PM LEAD BURNER Temperature 36.8 C (98.2 F) 12/12/2024 3:23 PM LEAD BURNER Respiratory Rate 16 12/12/2024 3:23 PM LEAD BURNER Oxygen Saturation 94% 12/12/2024 3:23 PM LEAD BURNER Inhaled Oxygen Concentration - - Weight 73.5 kg (162 lb) 12/10/2024 8:08 AM LEAD BURNER Height 165.1 cm (5' 5 ) 12/10/2024 8:08 AM LEAD BURNER Body Mass Index 26.96 12/10/2024 8:08 AM LEAD BURNER Plan of Treatment Health Maintenance Due Date Last Done Comments Colorectal Cancer Screening Colonoscopy (10 Years) 1952 Hepatitis C 1970 DTaP, Tdap and Td Vaccines ( 1 - Tdap) 1971 Mammogram Screening 1992 Zoster Vaccines (1 of 2) 2002 Annual Medicare Wellness Visit 2017 Dexa Scan (General) 2017 Pneumococcal Vaccine: 65+ Ye ars (1 of 1 - PCV) 2017 COVID-19 Vaccine ( - 2023-2 5 season) 2024 Influenza Adult (#1) 2024 RSV Immunization or 60+ Years (1 - 1-dose 75+ series) 2027 Meningococcal B Vaccine Aged Out No l onger eligible based on patient's age to complete this topic Meningococcal Vaccine Aged Out No renay du eligible based on patient's age to complete this topic RSV Immunizations Under 20 Months Aged Out No longer eligible based on patient's age to complete this topic Procedures Procedure Name Priority Date/Time Associated Diagnosis Comments POCT GLUCOSE - EARLY DOCKED DEVICE Routine 12/12/2024 4:40 PM LEAD BURNER POCT GLUCOSE - EARLY DOCKED DEVICE Routine 12/12/2024 3:20 PM LEAD BURNER POCT GLUCOSE - EARLY DOCKED DEVICE Routine 12/12/2024 11:06 AM LEAD BURNER POCT GLUCOSE - EARLY DOCKED DEVICE Routine 12/12/2024 6:11 AM LEAD BURNER C-REACTIVE PROTEIN Routine 12/12/2024 6: 04 AM LEAD BURNER PROCALCITONIN (PCT) Routine 12/12/2024 6 :04 AM LEAD BURNER COMPREHENSIVE METABOLIC PANEL Routine 12/12/2024 6:04 AM LEAD BURNER CBC W/DIFF AUTOMATED Routine 12/12/2024 6:04 AM LEAD BURNER POCT GLUCOSE - EARLY DOCKED DEVICE Routine 12/11/2024 7:43 PM LEAD BURNER POCT GLUCOSE - EARLY DOCKED DEVICE Routine 12/11/2024 3:46 PM LEAD BURNER POCT GLUCOSE - EARLY DOCKED DEVICE Routine 12/11/2024 11:04 AM LEAD BURNER POCT GLUCOSE - EARLY DOCKED DEVICE Routine 12/11/2024 7:32 AM LEAD BURNER BASIC METABOLIC PANEL STAT 12/11/2024 6:00 AM LEAD BURNER CBC W/DIFF AUTOMATED STAT 12/11/2024 6:00 AM LEAD BURNER POCT GLUCOSE - EARLY DOCKED DEVICE Routine 12/10/2024 9:17 PM LEAD BURNER POCT GLUCOSE - EARLY DOCKED DEVICE Routine 12/10/2024 7:36 PM LEAD BURNER POCT GLUCOSE - EARLY DOCKED DEVICE Routine 12/10/2024 5:48 PM LEAD BURNER URINE BACTERIA CULTURE STAT 10:55 AM LEAD BURNER HC URINALYSIS AUTO W/O MICRO STAT 12/10/2024 10:[address] ABD+PEL WO CON STAT 12/10/2024 9:[address] CERV SPINE WO CON STAT 12/10/2024 9:[address] HEAD WO CON STAT 12/10/2024 9:42 AM LEAD BURNER CULTURE, BACTERIA, BLOOD STAT 12/10/2024 8:48 AM LEAD BURNER CRITICAL CARE Routine 12/10/2024 8:32 AM LEAD BURNER ECG 12-LEAD STAT 12/10/2024 8:30 AM LEAD BURNER LACTIC ACID W REFLEX (SEPSIS) STAT 12/10/2024 8:27 AM LEAD BURNER HEMOGLOBIN, GLYCOSYLATED Routine 12/10/2024 8:14 AM LEAD BURNER THYROID STIM HORMONE TSH Routine 12/10/2024 8:14 AM LEAD BURNER MAGNESIUM Routine 12/10/2024 8:14 AM LEAD BURNER TSH W/REFLEX Routine 12/10/2024 8:14 AM LEAD BURNER TROPONIN, QUANT STAT 12/10/2024 8:14 AM LEAD BURNER COMPREHENSIVE METABOLIC PANEL STAT 12/10/2024 8:14 AM LEAD BURNER CBC W/DIFF AUTOMATED STAT 12/10/2024 8:14 AM LEAD BURNER from Last 3 Months Results * (ABNORMAL) POCT glucose (12/12/2024 4:40 PM LEAD BURNER) Only the most recent of11 resultswithin the time period is included. GLUCOSE POC 203(H) 70 - 99 mg/dL 12/12/2024 4:43 PM LEAD BURNER [facility] 12/12/2024 4:40 PM LEAD BURNER us Lucy Bowser MD POCT ORDERABLES - DEVICE Final Result Performing Organization Address City/[facility]/ZIP Co de Phone Number [facility] [address] [place] [address], [place] [phone] * PROCALCITONIN (PCT) (12/12/2024 6:04 AM LEAD BURNER) Procalcitonin <0.05 0.00 - 0.49 NG/ML 12/12/2024 8:11 AM LEAD BURNER [facility] 12/12/2024 6:04 AM LEAD BURNER us Lucy Bowser MD LABORATORY Final Result Performing Organization Address [facility] Co de Phone Number [facility] [address] [place] [address], [place] [phone] * (ABNORMAL) COMPREHENSIVE METABOLIC PANEL (12/12/2024 6:04 AM LEAD BURNER) Only the most recent of2 resultswithin the time period is included. GLUCOSE 135(H) 70 - 99 MG/DL 12/12/2024 7:17 AM LEAD BURNER [facility] BUN 29(H) 7 - 18 MG/DL 12/12/2024 7:17 AM [facility] CREATININE S/P/B 1.60(H) 0.55 - 1.02 MG/DL 12/12/2024 7:17 AM [facility] SODIUM S/P/B 139 136 - 145 MMOL/L 12/12/2024 7:17 AM [facility] POTASSIUM S/P/B 4.0 3.5 - 5.1 MMOL/L 12/12/2024 7:17 AM [facility] CHLORIDE S/P/B 111 97 - 115 MMOL/L 12/12/2024 7:17 AM [facility] CO2 23.4 21 - 32 MMOL/L 12/12/2024 7:17 AM [facility] CALCIUM S/P/B 8.7 8.5 - 10.1 MG/DL 12/12/2024 7:17 AM [facility] BILIRUBIN TOTAL S/P/B 0.2 0.2 - 1.2 MG/DL 12/12/2024 7:17 AM [facility] Comment: THIS ASSAY IS NOT RECOMMENDED FOR PATIENTS UNDERGOING TREATMENT WITH ELTROMBOPAG DUE TO THE POTENTIAL FOR FALSELY ELEVATED RESULTS. TOTAL PROTEIN S/P/B 5.8(L) 6.4 - 8.2 G/DL 12/12/2024 7:17 AM [facility] ALBUMIN S/P/B 2.4(L) 3.4 - 5.0 G/DL 12/12/2024 7:17 AM [facility] AST 9(L) 15 - 37 U/L 12/12/2024 7:17 AM [facility] ALT 10(L) 14 - 55 U/L 12/12/2024 7:17 AM [facility] ALKALINE PHOSPHATASE S/P/B 58 50 - 136 U/L 12/12/2024 7:17 AM [facility] ANION GAP 4.6 2 - 10 MMOL/L 12/12/2024 7:17 AM [facility] BUN CREATININE RATIO 18.1 6 - 26 12/12/2024 7:17 AM [facility] A/G RATIO 0.7(L) 1.0 - 2.0 RATIO 12/12/2024 7:17 AM [facility] GFR ESTIMATE 34(L) >90 ML/MIN/1.7 3 M2 12/12/2024 7:17 AM [facility] Comment: NOTE: eGFR is not calculated for patients <18 years of age or gender unknown. This is an estimated GFR calculation using the new CKD EPI creatinine equation without race and so does not require a correction factor for race. This estimated GFR should not be used for calculating drug doses. 12/12/2024 6:04 AM LEAD BURNER Lucy Bowser MD LABORATORY Final Result Performing Organization Address City/[facility]/ZIP Co de Phone Number [facility] [address] [place] [address], [place] [phone] * (ABNORMAL) C-REACTIVE PROTEIN (12/12/2024 6:04 AM LEAD BURNER) Pathologist [facility] C-REACTIVE PROTEIN 1.01(H) <0.29 mg/dL 12/12/2024 7:17 AM [facility] 12/12/2024 6:04 AM LEAD BURNER Lucy Bowser MD LABORATORY Final Result [facility] [address] [place] [address], [place] [phone] * (ABNORMAL) CBC W/DIFF AUTOMATED (12/12/2024 6:04 AM LEAD BURNER) Only the most recent of3 resultswithin the time period is included. WBC 7.33 4.5 - 11.0 x10'3/uL 12/12/2024 6:58 AM [facility] RBC 3.33(L) 4.20 - 5.40 x10'6/uL 12/12/2024 6:58 AM [facility] HGB 9.9(L) 12.0 - 16.0 G/DL 12/12/2024 6:58 AM [facility] HCT 29.5(L) 38.0 - 48.0 % 12/12/2024 6:58 AM [facility] MCV 88.6 81.0 - 99.0 FL 12/12/2024 6:58 AM [facility] MCH 29.7 27.0 - 31.0 PG 12/12/2024 6:58 AM [facility] MCHC 33.6 32.0 - 36.0 G/DL 12/12/2024 6:58 AM [facility] RDW 12.7 11.5 - 14.5 % 12/12/2024 6:58 AM [facility] PLT 215 130 - 400 x10'3/uL 12/12/2024 6:58 AM [facility] MPV 10.5 9.3 - 12.2 FL 12/12/2024 6:58 AM [facility] DIFFERENTIAL TYPE AUTOMATED DIFFERENTIAL 12/12/2024 6:58 AM [facility] NEUTROPHILS % 66.1 % 12/12/2024 6:58 AM [facility] LYMPHOCYTES % 21.1 % 12/12/2024 6:58 AM [facility] MONOCYTES % 7.0 % 12/12/2024 6:58 AM [facility] EOSINOPHILS 4.8 % 12/12/2024 6:58 AM [facility] BASOPHILS 0.5 % 12/12/2024 6:58 AM [facility] IMMATURE GRANS % 0.5 % 12/12/19 6:58 AM [facility] ABS. NEUTROPHILS 4.84 1.80 - 7.70 x10'3/uL 12/12/2024 6:58 AM [facility] ABS. LYMPHOCYTES 1.55 1.00 - 4.80 x10'3/uL 12/12/2024 6:58 AM [facility] ABS. MONOCYTES 0.51 0.24 - 0.86 x10'3/uL 12/12/2024 6:58 AM [facility] ABS. EOSINOPHILS 0.35 0.04 - 0.36 x10'3/uL 12/12/2024 6:58 AM [facility] ABS. BASOPHILS 0.04 0.01 - 0.08 x10'3/uL 12/12/2024 6:58 AM [facility] ABS. IMMATURE GRANULOCYTES 0.04 0.00 - 0.49 x10'3/uL 12/12/2024 6:58 AM [facility] 12/12/2024 6:04 AM [facility] Lucy Bowser MD LABORATORY Final Result [facility] [address] [place] [address], [place] [phone] * (ABNORMAL) BASIC METABOLIC PANEL (12/11/2024 6:00 AM LEAD BURNER) Pathologist [facility] GLUCOSE 147(H) 70 - 99 MG/DL 12/11/2024 6:06 AM [facility] BUN 37(H) 7 - 18 MG/DL 12/11/2024 6:06 AM [facility] CREATININE S/P/B 2.14(H) 0.55 - 1.02 MG/DL 12/11/2024 6:06 AM [facility] SODIUM S/P/B 136 136 - 145 MMOL/L 12/11/2024 6:06 AM [facility] POTASSIUM S/P/B 3.9 3.5 - 5.1 MMOL/L 12/11/2024 6:06 AM [facility] CHLORIDE S/P/B 109 97 - 115 MMOL/L 12/11/2024 6:06 AM [facility] CO2 25.9 21 - 32 MMOL/L 12/11/2024 6:06 AM [facility] CALCIUM S/P/B 8.6 8.5 - 10.1 MG/DL 12/11/2024 6:06 AM [facility] ANION GAP 1.1(L) 2 - 10 MMOL/L 12/11/2024 6:06 AM [facility] BUN CREATININE RATIO 17.3 6 - 26 12/11/2024 6:06 AM [facility] GFR ESTIMATE 24(L) >90 ML/MIN/1.7 3 M2 12/11/2024 6:06 AM [facility] Comment: NOTE: eGFR is not calculated for patients <18 years of age or gender unknown. This is an estimated GFR calculation using the new CKD EPI creatinine equation without race and so does not require a correction factor for race. This estimated GFR should not be used for calculating drug doses. 12/11/2024 6:00 AM LEAD BURNER us Rosalia Eldridge APNP LABORATORY Final Res ult [facility] [address] [place] [address], [place] [phone] * (ABNORMAL) URINALYSIS (12/10/2024 10:55 AM LEAD BURNER) SPECIMEN TYPE URINE STRAIGHT CATH 12/10/2024 11:20 AM [facility] COLOR (U) LIGHT ORANGE 12/10/2024 11:41 AM [facility] TRANSPARENCY EXTREMELY TURBID 12/10/2024 11:41 AM [facility] SPECIFIC GRAVITY (U) 1.010 1.001 - 1.030 12/10/2024 11:41 AM [facility] U PH 6.5 5.0 - 9.0 12/10/2024 11:41 AM [facility] LEUKOCYTES (U) 500(A) NEGATIVE 12/10/2024 11:41 AM [facility] NITRITES NEGATIVE NEGATIVE 12/10/2024 11:41 AM [facility] PROTEIN RANDOM (U) 300(H) <30 MG/DL 12/10/2024 11:41 AM [facility] GLUCOSE (U) NORMAL NORMAL MG/DL 12/10/2024 11:41 AM [facility] KETONES MG/DL (U) NEGATIVE NEGATIVE MG/DL 12/10/2024 11:41 AM [facility] UROBILINOGEN NORMAL NORMAL MG/DL 12/10/2024 11:41 AM [facility] BILIRUBIN (U) NEGATIVE NEGATIVE MG/DL 12/10/2024 11:41 AM [facility] BLOOD (U) 3+(A) NEGATIVE 12/10/2024 11:41 AM [facility] WBC/HPF >100(H) <6 /HPF 12/10/2024 11:41 AM [facility] WBC CLUMPS PRESENT 12/10/2024 11:41 AM LEAD BURNER [facility] RBC/HPF >100(H) <6 /HPF 12/10/2024 11:41 AM LEAD BURNER [facility] BACTERIA (U) MODERATE(A) NONE /HPF 12/10/2024 11:41 AM LEAD BURNER [facility] SQUAMOUS EPITHELIALS FEW /HPF 12/10/2024 11:41 AM LEAD BURNER [facility] URINE, STRAIGHT CATH 12/10/2024 10:55 AM LEAD BURNER us Keren Palmer MD URINE ORDERABLES Final Result [facility] [address] [place] [address], * (ABNORMAL) CULTURE URINE (12/10/2024 10:55 AM LEAD BURNER) SPEC DESCRIPTION URINE STRAIGHT CATH 12/10/2024 11:21 AM LEAD BURNER [facility] SPECIAL REQUESTS NO SPECIAL REQUEST 12/10/2024 11:21 AM LEAD BURNER [facility] CULTURE RESULT >100,000 COL/ML ENTEROBACTER CLOACAE COMPLEX (A) 12/12/2024 9:00 AM LEAD BURNER [facility] CULTURE RESULT 50,000-100,000 COL/ML GAMMA HEMOLYTIC STREP. NOT D SUSCEPTIBILTY NOT ROUTINELY PERFORMED. SAVING ISOLATE FOR 5 DAYS. CONTACT MICROBIOLOGY DEPARTMENT IF FURTHER WORKUP IS INDICATED. (A) 12/12/2024 9:00 AM LEAD BURNER [facility] URINE SPECIMEN OBTAINED BY SINGLE CATHETERIZATION OF URINARY BLADDER / Unknown 12/10/2024 10:55 AM LEAD BURNER 12/10/2024 11:29 AM LEAD BURNER Narrative Organism Antibiotic Method Susceptibility Enterobacter cloacae complex CEFTRIAXONE PATITO (VITEK) <=1: Sensitive Enterobacter cloacae complex CEFTAZIDIME PATITO (VITEK) <=1: Sensitive Enterobacter cloacae complex CEFAZOLIN PATITO (VITEK) 8: Resistant Enterobacter cloacae complex NITROFURANTOIN PATITO (VITEK ) 32: Sensitive Enterobacter cloacae complex GENTAMICIN PAITTO (VITEK) <=1: Sensitive Enterobacter cloacae complex LEVOFLOXACIN PATITO (VITEK) <=0.12: Sensitive Enterobacter cloacae complex PIPRACIL/TAZO PATITO (VITEK) <=4: Sensitive Enterobacter cloacae complex TRIMETH-SULFAMETH. PATITO (V ITEK) <=20: Sensitive us Keren Palmer MD MICROBIOLOGY - GENERAL ORDERA BLES Final Result [facility] [address] [place] [address], * CT HEAD WO CON (12/10/2024 9:42 AM LEAD BURNER) Anatomical Region Laterality Modality Head Computed Tomogra phy 12/10/2024 10:0 3 AM LEAD BURNER Impressions 12/10/2024 10:07 AM LEAD BURNER IMPRESSION: 1. No CT evidence of an acute intracranial abnormality. 2. No cervical spine fracture. Ordered By: KEREN PALMER Interpreted By: Darrick Monterroso MD, 12/10/2024 10:03 AM Narrative 12/10/2024 10:07 AM LEAD BURNER [address] [address] EXAMINATION: CT Cervical Spine, CT head. [id number] EXAM DATE/TIME: 12/10/2024 9:36 AM REASON FOR EXAM: fall COMPARISON: CT head and cervical spine 09/10/2024 TECHNIQUE: Computed tomographic images of the head and cervical spine were obtained without intravenous contrast. Additional coronal and sagittal reformatted images were generated at a separate workstation. A dose lowering technique was used for this procedure, which may include, but is not limited to, dose reduction technique, automated exposure control, iterative reconstruction, ALARA (As Low As Reasonably Achievable), or Image Gently techniques. FINDINGS: CT head: There is no acute intracranial hemorrhage. There is no extra-axial collection. 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 Basal cisterns appear normal. Mild to moderate arteriosclerotic calcification of the cavernous segments of the internal carotid arteries bilaterally. Scattered subcortical and periventricular white matter hyperintensities that are nonspecific but most commonly seen in setting of chronic small vessel ischemic change. Orbital contents appear normal. Moderate mucosal thickening involving the left maxillary sinus. Mastoid air cells are otherwise well aerated. Trace left mastoid air cell fluid. No acute fracture nor destructive process of the visualized osseous structures. CT cervical spine: There is straightening of the normal cervical lordosis that is likely positional. The cervical vertebral bodies and facets are well aligned. The cervical vertebral body heights are preserved. There is no acute fracture nor destructive process of the visualized osseous structures. Intervertebral disc height loss at C5-6 and to a lesser extent at C4-5 with endplate degenerative changes at these levels. No abnormal prevertebral or paraspinal soft tissue swelling. Procedure Note Darrick Monterroso MD - 12/10/[address] [address] EXAMINATION: CT Cervical Spine, CT head. [id number] EXAM DATE/TIME: 12/10/2024 9:36 AM REASON FOR EXAM: fall COMPARISON: CT head and cervical spine 09/10/2024 TECHNIQUE: Computed tomographic images of the head and cervical spine wereobtained without intravenous contrast. Additional coronal and sagittalreformatted images were generated at a separate workstation. A doselowering technique was used for this procedure, which may include, but isnot limited to, dose reduction technique, automated exposure control,iterative reconstruction, ALARA (As Low As Reasonably Achievable), orImage Gently techniques. FINDINGS: CT head: There is no acute intracranial hemorrhage. There is noextra-axial collection. 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 Basal cisterns appear normal. Mild to moderatearteriosclerotic calcification of the cavernous segments of the internalcarotid arteries bilaterally. Scattered subcortical and periventricularwhite matter hyperintensities that are nonspecific but most commonly seenin setting of chronic small vessel ischemic change. Orbital contentsappear normal. Moderate mucosal thickening involving the left maxillarysinus. Mastoid air cells are otherwise well aerated. Trace left mastoidair cell fluid. No acute fracture nor destructive process of thevisualized osseous structures. CT cervical spine: There is straightening of the normal cervical lordosisthat is likely positional. The cervical vertebral bodies and facets arewell aligned. The cervical vertebral body heights are preserved. There isno acute fracture nor destructive process of the visualized osseousstructures. Intervertebral disc height loss at C5-6 and to a lesser extentat C4-5 with endplate degenerative changes at these levels. No abnormalprevertebral or paraspinal soft tissue swelling. IMPRESSION: 1. No CT evidence of an acute intracranial abnormality. 2. No cervical spine fracture. Ordered By: KEREN PALMER Interpreted By: Darrick Monterroso MD, 12/10/2024 10:03 AM Keren Palmer MD CT Final Result * CT CERV SPINE WO CON (12/10/2024 9:42 AM LEAD BURNER) Anatomical Region Laterality Modality Spine Computed Tomogra phy 12/10/2024 10:0 3 AM LEAD BURNER Impressions 12/10/2024 10:07 AM LEAD BURNER IMPRESSION: 1. No CT evidence of an acute intracranial abnormality. 2. No cervical spine fracture. Ordered By: KEREN PALMER Interpreted By: Darrick Monterroso MD, 12/10/2024 10:03 AM Narrative 12/10/2024 10:07 AM LEAD BURNER [facility] [place] [address] EXAMINATION: CT Cervical Spine, CT head. [id number] EXAM DATE/TIME: 12/10/2024 9:36 AM REASON FOR EXAM: fall COMPARISON: CT head and cervical spine 09/10/2024 TECHNIQUE: Computed tomographic images of the head and cervical spine were obtained without intravenous contrast. Additional coronal and sagittal reformatted images were generated at a separate workstation. A dose lowering technique was used for this procedure, which may include, but is not limited to, dose reduction technique, automated exposure control, iterative reconstruction, ALARA (As Low As Reasonably Achievable), or Image Gently techniques. FINDINGS: CT head: There is no acute intracranial hemorrhage. There is no extra-axial collection. 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 Basal cisterns appear normal. Mild to moderate arteriosclerotic calcification of the cavernous segments of the internal carotid arteries bilaterally. Scattered subcortical and periventricular white matter hyperintensities that are nonspecific but most commonly seen in setting of chronic small vessel ischemic change. Orbital contents appear normal. Moderate mucosal thickening involving the left maxillary sinus. Mastoid air cells are otherwise well aerated. Trace left mastoid air cell fluid. No acute fracture nor destructive process of the visualized osseous structures. CT cervical spine: There is straightening of the normal cervical lordosis that is likely positional. The cervical vertebral bodies and facets are well aligned. The cervical vertebral body heights are preserved. There is no acute fracture nor destructive process of the visualized osseous structures. Intervertebral disc height loss at C5-6 and to a lesser extent at C4-5 with endplate degenerative changes at these levels. No abnormal prevertebral or paraspinal soft tissue swelling. Procedure Note Darrick Monterroso MD - 12/10/[address] [address] EXAMINATION: CT Cervical Spine, CT head. [id number] EXAM DATE/TIME: 12/10/2024 9:36 AM REASON FOR EXAM: fall COMPARISON: CT head and cervical spine 09/10/2024 TECHNIQUE: Computed tomographic images of the head and cervical spine wereobtained without intravenous contrast. Additional coronal and sagittalreformatted images were generated at a separate workstation. A doselowering technique was used for this procedure, which may include, but isnot limited to, dose reduction technique, automated exposure control,iterative reconstruction, ALARA (As Low As Reasonably Achievable), orImage Gently techniques. FINDINGS: CT head: There is no acute intracranial hemorrhage. There is noextra-axial collection. 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 Basal cisterns appear normal. Mild to moderatearteriosclerotic calcification of the cavernous segments of the internalcarotid arteries bilaterally. Scattered subcortical and periventricularwhite matter hyperintensities that are nonspecific but most commonly seenin setting of chronic small vessel ischemic change. Orbital contentsappear normal. Moderate mucosal thickening involving the left maxillarysinus. Mastoid air cells are otherwise well aerated. Trace left mastoidair cell fluid. No acute fracture nor destructive process of thevisualized osseous structures. CT cervical spine: There is straightening of the normal cervical lordosisthat is likely positional. The cervical vertebral bodies and facets arewell aligned. The cervical vertebral body heights are preserved. There isno acute fracture nor destructive process of the visualized osseousstructures. Intervertebral disc height loss at C5-6 and to a lesser extentat C4-5 with endplate degenerative changes at these levels. No abnormalprevertebral or paraspinal soft tissue swelling. IMPRESSION: 1. No CT evidence of an acute intracranial abnormality. 2. No cervical spine fracture. Ordered By: KEREN PALMER Interpreted By: Darrick Monterroso MD, 12/10/2024 10:03 AM us Keren Palmer MD CT Final Result * CT ABD+PEL WO CON (12/10/2024 9:42 AM LEAD BURNER) Anatomical Region Laterality Modality Abdomen Computed Tomogra phy 12/10/2024 10:1 8 AM LEAD BURNER Impressions 12/10/2024 10:35 AM LEAD BURNER Impression: 1. Marked bladder wall thickening with severe perivesical fat stranding. Findings are consistent with cystitis. 2. Bilateral hydronephrosis with periureteral fat stranding suggestive of an ascending urinary tract infection. 3. Splenomegaly. Ill-defined hypodense rounded masslike regions are seen within the spleen, nonspecific. Could further correlate with contrast-enhanced MRI of the abdomen as an outpatient. 4. Small hiatal hernia. Colonic diverticulosis without inflammatory changes. Ordered By: KEREN PALMER Interpreted By: Portillo Beaulieu MD, 12/10/2024 10:18 AM Narrative 12/10/2024 10:35 AM LEAD BURNER [address] [address] Examination: CT abdomen and pelvis without IV contrast. Clinical Information: Abdominal pain. Comparison: No comparison. Technique: IV contrast: None Oral contrast: None. Technical comments: Standard technique. Dose reduction: This CT exam was performed using one or more of the following dose reduction techniques: Automated exposure control, adjustment of the mA and/or kV according to patient size, and/or use of iterative reconstruction technique. Findings: LOWER CHEST Heart is normal in size. Dependent atelectasis. No pleural or pericardial effusions. UPPER ABDOMEN Liver and bile ducts: Normal in size and contour. No biliary dilatation. Gallbladder: No gallbladder wall thickening or pericholecystic fluid. Pancreas: Negative. Spleen: The spleen is mildly enlarged measuring 14.7 cm craniocaudal. Multiple ill-defined hypodense rounded regions are seen within the central aspect of the spleen, nonspecific. The largest measures approximately 1.8 cm. RETROPERITONEUM Adrenals: Negative. Kidneys: Moderate right and mild left hydronephrosis to the level of the urinary bladder. No hyperdense ureteral stones are seen. periureteral fat stranding noted. A 2 to 3 mm nonobstructing left renal stone is identified. The right kidney demonstrates mild cortical atrophy, nonspecific. Lymph nodes: No lymphadenopathy in the abdomen or pelvis. BOWEL AND PERITONEUM Bowel: Small hiatal hernia. No bowel obstruction. Colonic diverticulosis without acute inflammatory process. Free air or fluid: Trace free fluid is present within the pelvis, favored reactive VASCULATURE Atherosclerotic calcifications of the unenhanced abdominal aorta without aneurysm. PELVIS Marked circumferential wall thickening of the urinary bladder. There is severe perivesical fat stranding. BONES/SOFT TISSUES Multilevel spondylosis. No acute osseous abnormality is identified. Procedure Note Portillo Beaulieu MD - 12/10/2024 [facility] [address] [place], [place] [address] Examination: CT abdomen and pelvis without IV contrast. Clinical Information: Abdominal pain. Comparison: No comparison. Technique: IV contrast: None Oral contrast: None. Technical comments: Standard technique. Dose reduction: This CT exam was performed using one or more of thefollowing dose reduction techniques: Automated exposure control,adjustment of the mA and/or kV according to patient size, and/or use ofiterative reconstruction technique. Findings: LOWER CHEST Heart is normal in size. Dependent atelectasis. No pleural or pericardialeffusions. UPPER ABDOMEN Liver and bile ducts: Normal in size and contour. No biliary dilatation. Gallbladder: No gallbladder wall thickening or pericholecystic fluid. Pancreas: Negative. Spleen: The spleen is mildly enlarged measuring 14.7 cm craniocaudal.Multiple ill-defined hypodense rounded regions are seen within the centralaspect of the spleen, nonspecific. The largest measures approximately 1.8cm. RETROPERITONEUM Adrenals: Negative. Kidneys: Moderate right and mild left hydronephrosis to the level of theurinary bladder. No hyperdense ureteral stones are seen. periureteral fatstranding noted. A 2 to 3 mm nonobstructing left renal stone isidentified. The right kidney demonstrates mild cortical atrophy,nonspecific. Lymph nodes: No lymphadenopathy in the abdomen or pelvis. BOWEL AND PERITONEUM Bowel: Small hiatal hernia. No bowel obstruction. Colonic diverticulosiswithout acute inflammatory process. Free air or fluid: Trace free fluid is present within the pelvis, favoredreactive VASCULATURE Atherosclerotic calcifications of the unenhanced abdominal aorta withoutaneurysm. PELVIS Marked circumferential wall thickening of the urinary bladder. There issevere perivesical fat stranding. BONES/SOFT TISSUES Multilevel spondylosis. No acute osseous abnormality is identified. Impression: 1. Marked bladder wall thickening with severe perivesical fat stranding.Findings are consistent with cystitis. 2. Bilateral hydronephrosis with periureteral fat stranding suggestive ofan ascending urinary tract infection. 3. Splenomegaly. Ill-defined hypodense rounded masslike regions are seenwithin the spleen, nonspecific. Could further correlate withcontrast-enhanced MRI of the abdomen as an outpatient. 4. Small hiatal hernia. Colonic diverticulosis without inflammatorychanges. Ordered By: KEREN PALMER Interpreted By: Portillo Beaulieu MD, 12/10/2024 10:18 AM Keren Palmer MD CT Final Result * CULTURE, BACTERIA, BLOOD (12/10/2024 8:48 AM LEAD BURNER) SPEC DESCRIPTION BLOOD 12/10/2024 8:32 AM LEAD BURNER [facility] SPECIAL REQUESTS NO SPECIAL REQUEST 12/10/2024 8:32 AM LEAD BURNER [facility] CULTURE RESULT NO GROWTH 5 DAYS 12/15/2024 7:45 AM LEAD BURNER [facility] BLOOD SPECIMEN OBTAINED FOR BLOOD CULTURE / Unknown 12/10/2024 8:48 AM LEAD BURNER 12/10/2024 9:00 AM LEAD BURNER Keren Palmer MD MICROBIOLOGY - GENERAL ORDERA BLES Final Result [facility] [address] [place] [address], [place] [phone] * Critical Care (12/10/2024 8:32 AM LEAD BURNER) Narrative Keren Palmer MD - 12/10/2024 8:32 AM LEAD BURNER eKren Palmer MD 12/10/2024 11:54 AM Critical Care Performed by: Keren Palmer MD Authorized by: Keren Palmer MD Critical care provider statement: Critical care time (minutes): 40 Critical care time was exclusive of: Teaching time and separately billable procedures and treating other patients Critical care was necessary to treat or prevent imminent or life-threatening deterioration of the following conditions: Sepsis Critical care was time spent personally by me on the following activities: Development of treatment plan with patient or surrogate, discussions with consultants, evaluation of patient's response to treatment, examination of patient, obtaining history from patient or surrogate, ordering and performing treatments and interventions, ordering and review of laboratory studies, ordering and review of radiographic studies, pulse oximetry, re-evaluation of patient's condition and review of old charts Care discussed with: admitting provider us Keren Palmer MD PROCEDURE/MINOR SURGICAL ORDE BRAVO Final Result * ECG 12 lead (12/10/2024 8:30 AM LEAD BURNER) 12/10/2024 8:30 AM LEAD BURNER Narrative [facility] RAD - 12/10/2024 1:[address] [facility] Test Date: 2024-12-10 Pat Name: ROSELIA PEARCE Department: 41 Room: EXAM11 Gender: Female Circle Beveler: [id number] : 1950 Requested By: KEREN PALMER Order Number: [id number] Reading MD: Juan Gunter Measurements Intervals [place] Rate: 61 P: 59 NC: 150 QRS: 9 QRSD: 102 T: 47 QT: 457 QTc: 464 Interpretive Statements SINUS RHYTHM Compared to ECG 09/10/2024 15:04:25 Sinus bradycardia no longer present BURNER Procedure Note Juan Gunter MD - 12/10/2024 [facility] Test Date: 2024-12-10 Pat Name: ROSELIA PEARCE Department: 41 Room: EXAM11 Gender: Female Circle Beveler: [id number] : 1950 Requested By: KEREN PALMER Order Number: [id number] Reading MD: Juan Gunter Measurements Intervals [place] Rate: 61 P: 59 NC: 150 QRS: 9 QRSD: 102 T: 47 QT: 457 QTc: 464 Interpretive Statements SINUS RHYTHM Compared to ECG 09/10/2024 15:04:25 Sinus bradycardia no longer present BURNER Keren Palmer MD ECG ORDERABLES Final Result Performing Organization Address City/[facility]/ZIP Co de Phone Number [facility] * LACTIC ACID W REFLEX (SEPSIS) (12/10/2024 8:27 AM LEAD BURNER) LACTIC ACID VENOUS 0.9 0.4 - 2.0 MMOL/L 12/10/2024 11:32 AM LEAD BURNER [facility] 12/10/2024 8:27 AM LEAD BURNER Keren Palmer MD LABORATORY Final Result Performing Organization Address [facility] Co de Phone Number [facility] [address] [place] [address], [place] [phone] * TSH W/REFLEX (12/10/2024 8:14 AM LEAD BURNER) TSH 2.120 0.358 - 3.74 uIU/ML 12/10/2024 1:18 PM LEAD BURNER [facility] Comment: HIGH DOSES OF BIOTIN MAY INTERFERE WITH THIS TEST RESULT. CORRELATION TO CLINICAL HISTORY AND PRESENTATION RECOMMENDED. FREE T4 NOT INDICATED 12/10/2024 8:14 AM LEAD BURNER Rosalia HENAO LABORATORY Final Res ult Performing Organization Address City/[facility]/ZIP Co de Phone Number [facility] [address] [place] [address], [place] [phone] * (ABNORMAL) HEMOGLOBIN, GLYCOSYLATED (12/10/2024 8:14 AM LEAD BURNER) Pathologist [facility] HGB A1C 6.0(H) <5.7 % 12/10/2024 3:30 PM LEAD BURNER [facility] Comment: ADA GUIDELINES 2010 5.7 TO 6.4% INCREASED RISK OF DIABETES > OR = 6.5% CONSISTENT WITH DIABETES ESTIMATED AVG GLUCOSE 126 mg/dL 12/10/2024 3:30 PM LEAD BURNER [facility] 12/10/2024 8:14 AM LEAD BURNER Rosalia MACHADONP LABORATORY Final Res ult [facility] [address] [place] [address], [place] [phone] * TROPONIN, QUANT (12/10/2024 8:14 AM LEAD BURNER) [facility] TROPONIN I HIGH SENSITIVITY 12 <54 ng/L 12/10/2024 8:46 AM LEAD BURNER [facility] Comment: HIGH DOSES OF BIOTIN, TROPONIN-SPECIFIC AUTOANTIBODIES, AND ANTIBODY THERAPY CONTAINING HAMA MAY INTERFERE WITH THIS TEST RESULT. CORRELATION TO CLINICAL HISTORY AND PRESENTATION RECOMMENDED. 12/10/2024 8:14 AM LEAD BURNER Keren Palmer MD LABORATORY Final Result [facility] [address] [place] [address], [place] [phone] * THYROID STIM HORMONE, TSH (12/10/2024 8:14 AM LEAD BURNER) [facility] TSH 2.100 0.358 - 3.74 uIU/ML 12/10/2024 2:37 PM LEAD BURNER [facility] Comment: HIGH DOSES OF BIOTIN MAY INTERFERE WITH THIS TEST RESULT. CORRELATION TO CLINICAL HISTORY AND PRESENTATION RECOMMENDED. 12/10/2024 8:14 AM LEAD BURNER Rosalia Eldridge APNP LABORATORY Final Res ult [facility] [address] [place] [address], [place] [phone] * MAGNESIUM (12/10/2024 8:14 AM LEAD BURNER) MAGNESIUM 1.8 1.8 - 2.4 MG/DL 12/10/2024 2:37 PM LEAD BURNER [facility] 12/10/2024 8:14 AM LEAD BURNER Rosalia Eldridge APNP LABORATORY Final Res ult [facility] [address] [place] [address], [place] [phone] from Last 3 Months Insurance [address] [place] [address] [employer] Advance Directives * DNR (Latest Code Status on File) Date Activated Date Inactivated Comments 12/10/2024 1:53 PM 12/12/2024 7:29 PM Care Teams Service Station Attendant Relationship Specialty Start Date End Date Hanna Ch FNP [id number] [facility] [address] [place] [address] PCP - General CLINICAL NURSE SPECIALIST 12/10/24
[2025-01-15 20:16] LABS: Add Urine Microscopic? YES; Appearance Urine Turbid (Clear); Bilirubin Urine Negative (Negative); Blood Urine 3+ (Negative); Color Urine Yellow (Yellow); Glucose Urine UA Negative (Negative); Ketones Urine Negative (Negative); Leukocyte Esterase Ur 3+ LEU/UL (Negative); Nitrate Urine Positive (Negative); Protein Urine 1+ mg/dL (Negative); Urobilinogen Urine 0.2 mg/dL (<2.0); pH Urine 5.5 (5.0-9.0)
[2025-01-15 20:38] LABS: Bacteria Urine 2+ /hpf; Squamous Epithelial Cell Urine Few /hpf (Few); WBC Urine >100 /hpf (0-3)
== END 2025-01-15 14:41 | disposition home or self-care (01) ==
LOC: ANHGOSHLAB 14:41
PROVIDERS: PCP Internal Medicine; Visit Provider Nurse Practitioner
DX: N39.0 Urinary tract infection, site not specified (principal)
CPT/HCPCS: 36415; 80053; 81001; 85025; 87077; 87086; 87186; 93005

== ENCOUNTER 2025-01-15 15:27 | Outpatient (CLI) | payer MEDICARE, SELFPAY ==
--- OUTSIDE RECORDS SUMMARY | 2025-01-15 15:42 | XMS_ITS | Clinical Summary ---
Author Organization [facility] Address [facility] [place] [address] Care Team Providers Care Inspection Supervisor Name Role Phone Hanna Ch [employer] Primary Care Provider + [phone] Allergies No known active allergies Medications ELIQUIS [...] Follow-up Call [facility] [place] [address] Teresa Dietrich LPN Follow Up Call (AGNES 12/10-12/12/24) 12/10/2024 7:57 AM GENERAL MEDICAL PRACTITIONER - 12/12/2024 5:29 PM GENERAL MEDICAL PRACTITIONER Hospital Encounter [facility] Med[facility]Surg 5th Floor [address] [place] [address] Keren Palmer MD Goldberg, Deborah, MD Islam, Maaroof, MD Near [place]; Fall Discharge Disposition: Home or Self Care (Routine Discharge) 12/10/2024 Travel from Last 3 Months Social History Tobacco Use Types Packs/Day Years Used Date Smoking Tobacco: Never Smokeless Tobacco: Never Tobacco Cessation:Counseling Given: Not Answered Alcohol Use Standard Drinks/Week Comments Not Currently 0 (1 standard drink = 0.6 oz pur e alcohol) [facility] [employer] Answer Date Recorded In the past 12 months has [employer], gas, oil, or water [employer] threatened to shut off services in your [...] week 12/11/2024 How often do you attend [facility] or [facility] services? More than 4 times per year 12/11/2024 Do you belong to any clubs o r organizations such as taoist groups, unions, fraternal or athletic groups, or [...] and heating? Not hard at all 12/11/2024 [facility] - Occupational Stress [...] any time in the past 12 m [facility], were you homeless or living in a long term (including now)? No 12/11/2024 Comments No Sex and Gender Information Value Date Recorded Sex Assigned at Female 12/10/2024 8:16 AM GENERAL MEDICAL PRACTITIONER Legal Sex Female 2:58 PM GENERAL MEDICAL PRACTITIONER Gender Identity Not on file Sexual Orientation Not on file Last Filed Vital Signs Vital Sign Reading Time Taken Comments Blood Pressure 126/53 12/12/2024 3:23 PM GENERAL MEDICAL PRACTITIONER Pulse 65 12/12/2024 3:23 PM GENERAL MEDICAL PRACTITIONER Temperature 36.8 C (98.2 F) 12/12/2024 3:23 PM GENERAL MEDICAL PRACTITIONER Respiratory Rate 16 12/12/2024 3:23 PM GENERAL MEDICAL PRACTITIONER Oxygen Saturation 94% 12/12/2024 3:23 PM GENERAL MEDICAL PRACTITIONER Inhaled Oxygen Concentration - - Weight 73.5 kg (162 lb) 12/10/2024 8:08 AM GENERAL MEDICAL PRACTITIONER Height 165.1 cm (5' 5 ) 12/10/2024 8:08 AM GENERAL MEDICAL PRACTITIONER Body Mass Index 26.96 12/10/2024 8:08 AM GENERAL MEDICAL PRACTITIONER Plan of Treatment Health Maintenance Due Date [...] EARLY DOCKED DEVICE Routine 12/12/2024 4:40 PM GENERAL MEDICAL PRACTITIONER POCT GLUCOSE - EARLY DOCKED DEVICE Routine 12/12/2024 3:20 PM GENERAL MEDICAL PRACTITIONER POCT GLUCOSE - EARLY DOCKED DEVICE Routine 12/12/2024 11:06 AM GENERAL MEDICAL PRACTITIONER POCT GLUCOSE - EARLY DOCKED DEVICE Routine 12/12/2024 6:11 AM GENERAL MEDICAL PRACTITIONER C-REACTIVE PROTEIN Routine 12/12/2024 6: 04 AM GENERAL MEDICAL PRACTITIONER PROCALCITONIN (PCT) Routine 12/12/2024 6 :04 AM GENERAL MEDICAL PRACTITIONER COMPREHENSIVE METABOLIC PANEL Routine 12/12/2024 6:04 AM GENERAL MEDICAL PRACTITIONER CBC W/DIFF AUTOMATED Routine 12/12/2024 6:04 AM GENERAL MEDICAL PRACTITIONER POCT GLUCOSE - EARLY DOCKED DEVICE Routine 12/11/2024 7:43 PM GENERAL MEDICAL PRACTITIONER POCT GLUCOSE - EARLY DOCKED DEVICE Routine 12/11/2024 3:46 PM GENERAL MEDICAL PRACTITIONER POCT GLUCOSE - EARLY DOCKED DEVICE Routine 12/11/2024 11:04 AM GENERAL MEDICAL PRACTITIONER POCT GLUCOSE - EARLY DOCKED DEVICE Routine 12/11/2024 7:32 AM GENERAL MEDICAL PRACTITIONER BASIC METABOLIC PANEL STAT 12/11/2024 6:00 AM GENERAL MEDICAL PRACTITIONER CBC W/DIFF AUTOMATED STAT 12/11/2024 6:00 AM GENERAL MEDICAL PRACTITIONER POCT GLUCOSE - EARLY DOCKED DEVICE Routine 12/10/2024 9:17 PM GENERAL MEDICAL PRACTITIONER POCT GLUCOSE - EARLY DOCKED DEVICE Routine 12/10/2024 7:36 PM GENERAL MEDICAL PRACTITIONER POCT GLUCOSE - EARLY DOCKED DEVICE Routine 12/10/2024 5:48 PM GENERAL MEDICAL PRACTITIONER URINE BACTERIA CULTURE STAT 10:55 AM GENERAL MEDICAL PRACTITIONER HC URINALYSIS AUTO W/O MICRO STAT 12/10/2024 10:55 AM GENERAL MEDICAL PRACTITIONER CT ABD+PEL WO CON STAT 12/10/2024 9:4 2 AM GENERAL MEDICAL PRACTITIONER CT CERV SPINE WO CON STAT 12/10/2024 9:42 AM GENERAL MEDICAL PRACTITIONER CT HEAD WO CON STAT 12/10/2024 9:42 AM GENERAL MEDICAL PRACTITIONER CULTURE, BACTERIA, BLOOD STAT 12/10/2024 8:48 AM GENERAL MEDICAL PRACTITIONER CRITICAL CARE Routine 12/10/2024 8:32 AM GENERAL MEDICAL PRACTITIONER ECG 12-LEAD STAT 12/10/2024 8:30 AM GENERAL MEDICAL PRACTITIONER LACTIC ACID W REFLEX (SEPSIS) STAT 12/10/2024 8:27 AM GENERAL MEDICAL PRACTITIONER HEMOGLOBIN, GLYCOSYLATED Routine 12/10/2024 8:14 AM GENERAL MEDICAL PRACTITIONER THYROID STIM HORMONE TSH Routine 12/10/2024 8:14 AM GENERAL MEDICAL PRACTITIONER MAGNESIUM Routine 12/10/2024 8:14 AM GENERAL MEDICAL PRACTITIONER TSH W/REFLEX Routine 12/10/2024 8:14 AM GENERAL MEDICAL PRACTITIONER TROPONIN, QUANT STAT 12/10/2024 8:14 AM GENERAL MEDICAL PRACTITIONER COMPREHENSIVE METABOLIC PANEL STAT 12/10/2024 8:14 AM GENERAL MEDICAL PRACTITIONER CBC W/DIFF AUTOMATED STAT 12/10/2024 8:14 AM GENERAL MEDICAL PRACTITIONER from Last 3 Months Results * (ABNORMAL) POCT glucose (12/12/2024 4:40 PM GENERAL MEDICAL PRACTITIONER) Only the most recent of11 resultswithin the time period is included. GLUCOSE POC 203(H) 70 - 99 mg/dL 12/12/2024 4:43 PM GENERAL MEDICAL PRACTITIONER [facility] 12/12/2024 4:40 PM GENERAL MEDICAL PRACTITIONER us Lucy Bowser MD POCT ORDERABLES - DEVICE Final Result Performing Organization Address City/[facility]/ZIP Co de Phone Number [facility] [address] [place] [address], [place] [phone] * PROCALCITONIN (PCT) (12/12/2024 6:04 AM GENERAL MEDICAL PRACTITIONER) Procalcitonin <0.05 0.00 - 0.49 NG/ML 12/12/2024 8:11 AM GENERAL MEDICAL PRACTITIONER [facility] 12/12/2024 6:04 AM GENERAL MEDICAL PRACTITIONER us Lucy Bowser MD LABORATORY Final Result Performing Organization Address [facility] Co de Phone Number [facility] [address] [place] [address], [place] [phone] * (ABNORMAL) COMPREHENSIVE METABOLIC PANEL (12/12/2024 6:04 AM GENERAL MEDICAL PRACTITIONER) Only the most recent of2 resultswithin the time period is included. GLUCOSE 135(H) 70 - 99 MG/DL 12/12/2024 7:17 AM GENERAL MEDICAL PRACTITIONER [facility] BUN 29(H) 7 - 18 MG/DL 12/12/2024 7:17 AM [facility] CREATININE S/P/B 1.60(H) 0.55 - 1.02 MG/DL 12/12/2024 7:17 AM [facility] SODIUM S/P/B 139 136 - 145 MMOL/L 12/12/2024 7:17 AM [facility] POTASSIUM S/P/B 4.0 3.5 - 5.1 MMOL/L 12/12/2024 7:17 AM [facility] CHLORIDE S/P/B 111 97 - 115 MMOL/L 12/12/2024 7:17 AM [facility] CO2 23.4 21 - 32 MMOL/L 12/12/2024 7:17 AM [facility] CALCIUM S/P/B 8.7 8.5 - 10.1 MG/DL 12/12/2024 7:17 AM [facility] BILIRUBIN TOTAL S/P/B 0.2 0.2 - 1.2 MG/DL 12/12/2024 7:17 AM [facility] Comment: THIS ASSAY IS NOT RECOMMENDED FOR PATIENTS UNDERGOING TREATMENT WITH ELTROMBOPAG DUE TO THE POTENTIAL FOR FALSELY ELEVATED RESULTS. TOTAL PROTEIN S/P/B 5.8(L) 6.4 - 8.2 G/DL 12/12/2024 7:17 AM [facility] ALBUMIN S/P/B 2.4(L) 3.4 - 5.0 G/DL 12/12/2024 7:17 AM [facility] AST 9(L) 15 - 37 U/L 12/12/2024 7:17 AM [facility] ALT 10(L) 14 - 55 U/L 12/12/2024 7:17 AM [facility] ALKALINE PHOSPHATASE S/P/B 58 50 - 136 U/L 12/12/2024 7:17 AM [facility] ANION GAP 4.6 2 - 10 MMOL/L 12/12/2024 7:17 AM [facility] BUN CREATININE RATIO 18.1 6 - 26 12/12/2024 7:17 AM [facility] A/G RATIO 0.7(L) 1.0 - 2.0 RATIO 12/12/2024 7:17 AM [facility] GFR ESTIMATE 34(L) >90 ML/MIN/1.7 3 M2 12/12/2024 7:17 AM [facility] Comment: NOTE: eGFR is not calculated for patients <18 years of age or gender unknown. This is an estimated GFR calculation using the new CKD EPI creatinine equation without race and so does not require a correction factor for race. This estimated GFR should not be used for calculating drug doses. 12/12/2024 6:04 AM GENERAL MEDICAL PRACTITIONER Lucy Bowser MD LABORATORY Final Result Performing Organization Address City/[facility]/ZIP Co de Phone Number [facility] [address] [place] [address], [place] [phone] * (ABNORMAL) C-REACTIVE PROTEIN (12/12/2024 6:04 AM GENERAL MEDICAL PRACTITIONER) Pathologist [facility] C-REACTIVE PROTEIN 1.01(H) <0.29 mg/dL 12/12/2024 7:17 AM [facility] 12/12/2024 6:04 AM GENERAL MEDICAL PRACTITIONER Lucy Bowser MD LABORATORY Final Result [facility] [address] [place] [address], [place] [phone] * (ABNORMAL) CBC W/DIFF AUTOMATED (12/12/2024 6:04 AM GENERAL MEDICAL PRACTITIONER) Only the most recent of3 resultswithin the time period is included. WBC 7.33 4.5 - 11.0 x10'3/uL 12/12/2024 6:58 AM [facility] RBC 3.33(L) 4.20 - 5.40 x10'6/uL 12/12/2024 6:58 AM [facility] HGB 9.9(L) 12.0 - 16.0 G/DL 12/12/2024 6:58 AM [facility] HCT 29.5(L) 38.0 - 48.0 % 12/12/2024 6:58 AM [facility] MCV 88.6 81.0 - 99.0 FL 12/12/2024 6:58 AM [facility] MCH 29.7 27.0 - 31.0 PG 12/12/2024 6:58 AM [facility] MCHC 33.6 32.0 - 36.0 G/DL 12/12/2024 6:58 AM [facility] RDW 12.7 11.5 - 14.5 % 12/12/2024 6:58 AM [facility] PLT 215 130 - 400 x10'3/uL 12/12/2024 6:58 AM [facility] MPV 10.5 9.3 - 12.2 FL 12/12/2024 6:58 AM [facility] DIFFERENTIAL TYPE AUTOMATED DIFFERENTIAL 12/12/2024 6:58 AM [facility] NEUTROPHILS % 66.1 % 12/12/2024 6:58 AM [facility] LYMPHOCYTES % 21.1 % 12/12/2024 6:58 AM [facility] MONOCYTES % 7.0 % 12/12/2024 6:58 AM [facility] EOSINOPHILS 4.8 % 12/12/2024 6:58 AM [facility] BASOPHILS 0.5 % 12/12/2024 6:58 AM [facility] IMMATURE GRANS % 0.5 % 12/12/19 6:58 AM [facility] ABS. NEUTROPHILS 4.84 1.80 - 7.70 x10'3/uL 12/12/2024 6:58 AM [facility] ABS. LYMPHOCYTES 1.55 1.00 - 4.80 x10'3/uL 12/12/2024 6:58 AM [facility] ABS. MONOCYTES 0.51 0.24 - 0.86 x10'3/uL 12/12/2024 6:58 AM [facility] ABS. EOSINOPHILS 0.35 0.04 - 0.36 x10'3/uL 12/12/2024 6:58 AM [facility] ABS. BASOPHILS 0.04 0.01 - 0.08 x10'3/uL 12/12/2024 6:58 AM [facility] ABS. IMMATURE GRANULOCYTES 0.04 0.00 - 0.49 x10'3/uL 12/12/2024 6:58 AM [facility] 12/12/2024 6:04 AM [facility] Lucy Bowser MD LABORATORY Final Result [facility] [address] [place] [address], [place] [phone] * (ABNORMAL) BASIC METABOLIC PANEL (12/11/2024 6:00 AM GENERAL MEDICAL PRACTITIONER) Pathologist [facility] GLUCOSE 147(H) 70 - 99 MG/DL 12/11/2024 6:06 AM [facility] BUN 37(H) 7 - 18 MG/DL 12/11/2024 6:06 AM [facility] CREATININE S/P/B 2.14(H) 0.55 - 1.02 MG/DL 12/11/2024 6:06 AM [facility] SODIUM S/P/B 136 136 - 145 MMOL/L 12/11/2024 6:06 AM [facility] POTASSIUM S/P/B 3.9 3.5 - 5.1 MMOL/L 12/11/2024 6:06 AM [facility] CHLORIDE S/P/B 109 97 - 115 MMOL/L 12/11/2024 6:06 AM [facility] CO2 25.9 21 - 32 MMOL/L 12/11/2024 6:06 AM [facility] CALCIUM S/P/B 8.6 8.5 - 10.1 MG/DL 12/11/2024 6:06 AM [facility] ANION GAP 1.1(L) 2 - 10 MMOL/L 12/11/2024 6:06 AM [facility] BUN CREATININE RATIO 17.3 6 - 26 12/11/2024 6:06 AM [facility] GFR ESTIMATE 24(L) >90 ML/MIN/1.7 3 M2 12/11/2024 6:06 AM [facility] Comment: NOTE: eGFR is not calculated for patients <18 years of age or gender unknown. This is an estimated GFR calculation using the new CKD EPI creatinine equation without race and so does not require a correction factor for race. This estimated GFR should not be used for calculating drug doses. 12/11/2024 6:00 AM GENERAL MEDICAL PRACTITIONER us Rosalia Eldridge APNP LABORATORY Final Res ult [facility] [address] [place] [address], [place] [phone] * (ABNORMAL) URINALYSIS (12/10/2024 10:55 AM GENERAL MEDICAL PRACTITIONER) SPECIMEN TYPE URINE STRAIGHT CATH 12/10/2024 11:20 AM [facility] COLOR (U) LIGHT ORANGE 12/10/2024 11:41 AM [facility] TRANSPARENCY EXTREMELY TURBID 12/10/2024 11:41 AM [facility] SPECIFIC GRAVITY (U) 1.010 1.001 - 1.030 12/10/2024 11:41 AM [facility] U PH 6.5 5.0 - 9.0 12/10/2024 11:41 AM [facility] LEUKOCYTES (U) 500(A) NEGATIVE 12/10/2024 11:41 AM [facility] NITRITES NEGATIVE NEGATIVE 12/10/2024 11:41 AM [facility] PROTEIN RANDOM (U) 300(H) <30 MG/DL 12/10/2024 11:41 AM [facility] GLUCOSE (U) NORMAL NORMAL MG/DL 12/10/2024 11:41 AM [facility] KETONES MG/DL (U) NEGATIVE NEGATIVE MG/DL 12/10/2024 11:41 AM [facility] UROBILINOGEN NORMAL NORMAL MG/DL 12/10/2024 11:41 AM [facility] BILIRUBIN (U) NEGATIVE NEGATIVE MG/DL 12/10/2024 11:41 AM [facility] BLOOD (U) 3+(A) NEGATIVE 12/10/2024 11:41 AM [facility] WBC/HPF >100(H) <6 /HPF 12/10/2024 11:41 AM [facility] WBC CLUMPS PRESENT 12/10/2024 11:41 AM GENERAL MEDICAL PRACTITIONER [facility] RBC/HPF >100(H) <6 /HPF 12/10/2024 11:41 AM GENERAL MEDICAL PRACTITIONER [facility] BACTERIA (U) MODERATE(A) NONE /HPF 12/10/2024 11:41 AM GENERAL MEDICAL PRACTITIONER [facility] SQUAMOUS EPITHELIALS FEW /HPF 12/10/2024 11:41 AM GENERAL MEDICAL PRACTITIONER [facility] URINE, STRAIGHT CATH 12/10/2024 10:55 AM GENERAL MEDICAL PRACTITIONER us Keren Palmer MD URINE ORDERABLES Final Result [facility] [address] [place] [address], * (ABNORMAL) CULTURE URINE (12/10/2024 10:55 AM GENERAL MEDICAL PRACTITIONER) SPEC DESCRIPTION URINE STRAIGHT CATH 12/10/2024 11:21 AM GENERAL MEDICAL PRACTITIONER [facility] SPECIAL REQUESTS NO SPECIAL REQUEST 12/10/2024 11:21 AM GENERAL MEDICAL PRACTITIONER [facility] CULTURE RESULT >100,000 COL/ML ENTEROBACTER CLOACAE COMPLEX (A) 12/12/2024 9:00 AM GENERAL MEDICAL PRACTITIONER [facility] CULTURE RESULT 50,000-100,000 COL/ML GAMMA HEMOLYTIC STREP. NOT D SUSCEPTIBILTY NOT ROUTINELY PERFORMED. SAVING ISOLATE FOR 5 DAYS. CONTACT MICROBIOLOGY DEPARTMENT IF FURTHER WORKUP IS INDICATED. (A) 12/12/2024 9:00 AM GENERAL MEDICAL PRACTITIONER [facility] URINE SPECIMEN OBTAINED BY SINGLE CATHETERIZATION OF URINARY BLADDER / Unknown 12/10/2024 10:55 AM GENERAL MEDICAL PRACTITIONER 12/10/2024 11:29 AM GENERAL MEDICAL PRACTITIONER Narrative Organism Antibiotic Method Susceptibility Enterobacter cloacae complex CEFTRIAXONE PATITO (VITEK) <=1: Sensitive Enterobacter cloacae complex CEFTAZIDIME PATITO (VITEK) <=1: Sensitive Enterobacter cloacae complex CEFAZOLIN PATITO (VITEK) 8: Resistant Enterobacter cloacae complex NITROFURANTOIN PATITO (VITEK ) 32: Sensitive Enterobacter cloacae complex GENTAMICIN PATITO (VITEK) <=1: Sensitive Enterobacter cloacae complex LEVOFLOXACIN PATITO (VITEK) <=0.12: Sensitive Enterobacter cloacae complex PIPRACIL/TAZO PATITO (VITEK) <=4: Sensitive Enterobacter cloacae complex TRIMETH-SULFAMETH. PATITO (V ITEK) <=20: Sensitive us Keren Palmer MD MICROBIOLOGY - GENERAL ORDERA BLES Final Result [facility] [address] [place] [address], * CT HEAD WO CON (12/10/2024 9:42 AM GENERAL MEDICAL PRACTITIONER) Anatomical Region Laterality Modality Head Computed Tomogra phy 12/10/2024 10:0 3 AM GENERAL MEDICAL PRACTITIONER Impressions 12/10/2024 10:07 AM GENERAL MEDICAL PRACTITIONER IMPRESSION: 1. No CT evidence of an acute intracranial abnormality. 2. No cervical spine fracture. Ordered By: KEREN PALMER Interpreted By: Darrick Monterroso MD, 12/10/2024 10:03 AM Narrative 12/10/2024 10:07 AM GENERAL MEDICAL PRACTITIONER [address] [address] EXAMINATION: CT Cervical Spine, CT head. [id number] EXAM DATE/TIME: 12/10/2024 9:36 AM REASON FOR [...] Procedure Note Darrick Monterroso MD - 12/10/[address] [address] EXAMINATION: CT Cervical Spine, CT head. [id number] EXAM DATE/TIME: 12/10/2024 9:36 AM REASON FOR [...] CERV SPINE WO CON (12/10/2024 9:42 AM GENERAL MEDICAL PRACTITIONER) Anatomical Region Laterality Modality Spine Computed Tomogra phy 12/10/2024 10:0 3 AM GENERAL MEDICAL PRACTITIONER Impressions 12/10/2024 10:07 AM GENERAL MEDICAL PRACTITIONER IMPRESSION: 1. No CT evidence of an acute intracranial abnormality. 2. No cervical spine fracture. Ordered By: KEREN PALMER Interpreted By: Darrick Monterroso MD, 12/10/2024 10:03 AM Narrative 12/10/2024 10:07 AM GENERAL MEDICAL PRACTITIONER [facility] [place] [address] EXAMINATION: CT Cervical Spine, CT head. [id number] EXAM DATE/TIME: 12/10/2024 9:36 AM REASON FOR [...] Procedure Note Darrick Monterroso MD - 12/10/[address] [address] EXAMINATION: CT Cervical Spine, CT head. [id number] EXAM DATE/TIME: 12/10/2024 9:36 AM REASON FOR [...] CT ABD+PEL WO CON (12/10/2024 9:42 AM GENERAL MEDICAL PRACTITIONER) Anatomical Region Laterality Modality Abdomen Computed Tomogra phy 12/10/2024 10:1 8 AM GENERAL MEDICAL PRACTITIONER Impressions 12/10/2024 10:35 AM GENERAL MEDICAL PRACTITIONER Impression: 1. Marked bladder wall thickening with [...] 12/10/2024 10:18 AM Narrative 12/10/2024 10:35 AM GENERAL MEDICAL PRACTITIONER [address] [address] Examination: CT abdomen and pelvis without IV [...] Procedure Note Portillo Beaulieu MD - 12/10/2024 [facility] [address] [place], [place] [address] Examination: CT abdomen and pelvis without IV [...] * CULTURE, BACTERIA, BLOOD (12/10/2024 8:48 AM GENERAL MEDICAL PRACTITIONER) SPEC DESCRIPTION BLOOD 12/10/2024 8:32 AM GENERAL MEDICAL PRACTITIONER [facility] SPECIAL REQUESTS NO SPECIAL REQUEST 12/10/2024 8:32 AM GENERAL MEDICAL PRACTITIONER [facility] CULTURE RESULT NO GROWTH 5 DAYS 12/15/2024 7:45 AM GENERAL MEDICAL PRACTITIONER [facility] BLOOD SPECIMEN OBTAINED FOR BLOOD CULTURE / Unknown 12/10/2024 8:48 AM GENERAL MEDICAL PRACTITIONER 12/10/2024 9:00 AM GENERAL MEDICAL PRACTITIONER Keren Palmer MD MICROBIOLOGY - GENERAL ORDERA BLES Final Result [facility] [address] [place] [address], [place] [phone] * Critical Care (12/10/2024 8:32 AM GENERAL MEDICAL PRACTITIONER) Narrative Keren Palmer MD - 12/10/2024 8:32 AM GENERAL MEDICAL PRACTITIONER Keren Palmer MD 12/10/2024 11:54 AM Critical Care [...] * ECG 12 lead (12/10/2024 8:30 AM GENERAL MEDICAL PRACTITIONER) 12/10/2024 8:30 AM GENERAL MEDICAL PRACTITIONER Narrative [facility] RAD - 12/10/2024 1:55 PM GENERAL MEDICAL PRACTITIONER [address] Test Date: 2024-12-10 Pat Name: ROSELIA PEARCE Department: 41 Room: EXAM11 Gender: Female Round Up Ring Hand: [id number] : 1950 Requested By: KEREN PALMER Order Number: [id number] Reading MD: Juan Gunter Measurements Intervals [place] Rate: 61 P: 59 MA: 150 QRS: 9 QRSD: 102 T: 47 QT: 457 QTc: 464 Interpretive Statements SINUS RHYTHM Compared to ECG 09/10/2024 15:04:25 Sinus bradycardia no longer present RAL MEDICAL PRACTITIONER Procedure Note Juan Gunter MD - 12/10/2024 [facility] [facility] [address] Test Date: 2024-12-10 Pat Name: ROSELIA PEARCE Department: 41 Room: EXAM11 Gender: Female [employer] [place] Hand: [id number] : 1950 Requested By: KEREN PALMER Order Number: [id number] Reading MD: Juan Gunter Measurements Intervals [place] Rate: 61 P: 59 MA: 150 QRS: 9 QRSD: 102 T: 47 QT: 457 QTc: 464 Interpretive Statements SINUS RHYTHM Compared to ECG 09/10/2024 15:04:25 Sinus bradycardia no longer present RAL MEDICAL PRACTITIONER Keren Palmer MD ECG ORDERABLES Final Result Performing Organization Address City/[facility]/ZIP Co de Phone Number [facility] RAD * LACTIC ACID W REFLEX (SEPSIS) (12/10/2024 8:27 AM GENERAL MEDICAL PRACTITIONER) LACTIC ACID VENOUS 0.9 0.4 - 2.0 MMOL/L 12/10/2024 11:32 AM GENERAL MEDICAL PRACTITIONER [facility] 12/10/2024 8:27 AM GENERAL MEDICAL PRACTITIONER Keren Palmer MD LABORATORY Final Result Performing Organization Address [facility] Co de Phone Number [facility] [address] [place] [address], [place] [phone] * TSH W/REFLEX (12/10/2024 8:14 AM GENERAL MEDICAL PRACTITIONER) TSH 2.120 0.358 - 3.74 uIU/ML 12/10/2024 1:18 PM GENERAL MEDICAL PRACTITIONER [facility] Comment: HIGH DOSES OF BIOTIN MAY INTERFERE WITH THIS TEST RESULT. CORRELATION TO CLINICAL HISTORY AND PRESENTATION RECOMMENDED. FREE T4 NOT INDICATED 12/10/2024 8:14 AM GENERAL MEDICAL PRACTITIONER Rosalia HENAO LABORATORY Final Res ult Performing Organization Address City/[facility]/ZIP Co de Phone Number [facility] [address] [place] [address], [place] [phone] * (ABNORMAL) HEMOGLOBIN, GLYCOSYLATED (12/10/2024 8:14 AM GENERAL MEDICAL PRACTITIONER) Pathologist [facility] HGB A1C 6.0(H) <5.7 % 12/10/2024 3:30 PM GENERAL MEDICAL PRACTITIONER [facility] Comment: ADA GUIDELINES 2010 5.7 TO 6.4% INCREASED RISK OF DIABETES > OR = 6.5% CONSISTENT WITH DIABETES ESTIMATED AVG GLUCOSE 126 mg/dL 12/10/2024 3:30 PM GENERAL MEDICAL PRACTITIONER [facility] 12/10/2024 8:14 AM GENERAL MEDICAL PRACTITIONER Rosalia MACHADONP LABORATORY Final Res ult [facility] [address] [place] [address], [place] [phone] * TROPONIN, QUANT (12/10/2024 8:14 AM GENERAL MEDICAL PRACTITIONER) [facility] TROPONIN I HIGH SENSITIVITY 12 <54 ng/L 12/10/2024 8:46 AM GENERAL MEDICAL PRACTITIONER [facility] Comment: HIGH DOSES OF BIOTIN, TROPONIN-SPECIFIC AUTOANTIBODIES, AND ANTIBODY THERAPY CONTAINING HAMA MAY INTERFERE WITH THIS TEST RESULT. CORRELATION TO CLINICAL HISTORY AND PRESENTATION RECOMMENDED. 12/10/2024 8:14 AM GENERAL MEDICAL PRACTITIONER Keren Palmer MD LABORATORY Final Result [facility] [address] [place] [address], [place] [phone] * THYROID STIM HORMONE, TSH (12/10/2024 8:14 AM GENERAL MEDICAL PRACTITIONER) [facility] TSH 2.100 0.358 - 3.74 uIU/ML 12/10/2024 2:37 PM GENERAL MEDICAL PRACTITIONER [facility] Comment: HIGH DOSES OF BIOTIN MAY INTERFERE WITH THIS TEST RESULT. CORRELATION TO CLINICAL HISTORY AND PRESENTATION RECOMMENDED. 12/10/2024 8:14 AM GENERAL MEDICAL PRACTITIONER Rosalia Eldridge APNP LABORATORY Final Res ult [facility] [address] [place] [address], [place] [phone] * MAGNESIUM (12/10/2024 8:14 AM GENERAL MEDICAL PRACTITIONER) MAGNESIUM 1.8 1.8 - 2.4 MG/DL 12/10/2024 2:37 PM GENERAL MEDICAL PRACTITIONER [facility] 12/10/2024 8:14 AM GENERAL MEDICAL PRACTITIONER Rosalia Eldridge APNP LABORATORY Final Res ult [facility] [address] [place] [address], [place] [phone] from Last 3 Months Insurance [address] [place] [address] [employer]ET[employer] Advance Directives * DNR (Latest Code Status on File) Date Activated Date Inactivated Comments 12/10/2024 1:53 PM 12/12/2024 7:29 PM Care Teams Inspection Supervisor Relationship Specialty Start Date End Date Hanna Ch FNP [id number] [facility] [address] [place] [address] PCP - General CLINICAL NURSE SPECIALIST 12/10/24
--- NOTE | 2025-01-15 15:52 | ECG_ITS ---
Test Date: 2025-01-15 16:18:05 Measurements Intervals [place] Rate: 61 P: 57 UT: 152 QRS: -11 QRSD: 84 T: 24 QT: 444 QTc: 447 Interpretive Statements SINUS RHYTHM WITH OCCASIONAL ECTOPIC PREMATURE COMPLEXES MINIMAL VOLTAGE CRITERIA FOR LVH, CONSIDER NORMAL VARIANT [MEETS CRITERIA IN ONE OF: R(aVL), S(V1), R(V5), R(V5/V6)+S(V1)] Compared to ECG 05/30/2024 10:51:10 No significant changes Electronically Signed On 01-16-2025 18:23:00 CDT by Jesus Aiken M.D.
[2025-01-15 16:03] LABS: Basophils Percent Auto 0.4 % (0.2-1.2); Eosinophils Absolute Auto 0.1 K/mm3 (0-0.3); Eosinophils Percent Auto 1.1 % (0-4.4); Hematocrit 34.3 % (37.0-47.0); Hemoglobin 11.2 g/dL (12.0-15.0); Immature Granulocyte Absolute 0.02 K/mm3 (0.00-0.031); Immature Granulocyte Percent A 0.2 % (0-0.5); Lymphocytes Absolute Auto 1.86 K/mm3 (0.9-3.2); Lymphocytes Percent Auto 20.4 % (18.3-44.2); Mean Corpuscular HGB Conc 32.7 g/dl (32-36); Mean Corpuscular Hemoglobin 29.7 pg (26-34); Monocytes Absolute Auto 0.6 K/mm3 (0.1-0.6); Monocytes Percent Auto 6.4 % (2.6-8.5); Neutrophils Absolute Auto 6.5 K/mm3 (1.3-6.7); Neutrophils Percent Auto 71.5 % (45.5-73.1); Platelet Count Result 224 k/mm3 (150-375); Red Blood Count 3.77 M/mm3 (4.2-5.4); Red Cell Distribution Width 12.9 % (11.5-14.5); White Blood Count 9.1 K/mm3 (4.5-10.0)
[2025-01-15 16:39] LABS: Alanine Aminotransferase 11 U/L (6-35); Alkaline Phosphatase 74 U/L (38-126); Anion Gap 10 mmol/L (4-12); Aspartate Amino Transferase 14 U/L (14-36); Bilirubin,Total 0.4 mg/dL (0.2-1.3); Blood Urea Nitrogen 22 mg/dL (7-17); Calcium 9.8 mg/dL (8.4-10.2); Carbon Dioxide 28 mmol/L (22-30); Chloride 102 mmol/L (98-107); Estimated Glomerular Filt Rate 25; Glucose 145 mg/dL (65-110); Potassium 3.7 mmol/L (3.4-5.0); Sodium 140 mmol/L (137-145)
== END 2025-01-15 15:28 | disposition home or self-care (01) ==
LOC: ANHLAB 15:31
PROVIDERS: PCP Internal Medicine; Visit Provider Nurse Practitioner
DX: I48.91 Unspecified atrial fibrillation (principal); N18.30 Chronic kidney disease, stage 3 unspecified; N39.0 Urinary tract infection, site not specified
CPT/HCPCS: 36415; 80053; 85025; 93005

== ENCOUNTER 2025-02-06 08:36 | Outpatient (CLI) | payer MEDICARE, SELFPAY ==
--- OUTSIDE RECORDS SUMMARY | 2025-02-06 08:43 | XMS_ITS | Clinical Summary ---
Author Organization [facility] Address [address] [place] [address] Care Team Providers Care Cognos Consultant Name Role Phone Hanna Ch ENGRAVER TIRE MOLD Primary Care Provider + [phone] Allergies No known active allergies Medications ELIQUIS 5 MG tablet Take 1 tablet (5 mg total) by mouth every 12 (twelve) hours. 11/21/19 25 Active ARIPiprazole (ABILIFY) 5 MG tablet Take 1 tablet (5 mg total) by mouth daily. 08/25/20 24 Active atorvastatin (LIPITOR) 40 MG tablet Take 1 tablet (40 mg total) by mouth daily. 11/05/19 25 Active fenofibrate micronized (LOFIBRA) 67 MG Cap capsule Take 1 capsule (67 mg total) by mouth daily. 10/20/20 24 Active lisinopril (PRINIVIL) 20 MG tablet Take 1 tablet (20 mg total) by mouth daily. 09/01/20 24 Active amitriptyline (ELAVIL) 25 MG tablet Take 1 tablet (25 mg total) by mouth nightly at bedtime. at bedtime. 12/26/19 25 Active topiramate (TOPAMAX) 25 MG tablet Take 1 tablet (25 mg total) by mouth daily. 12/25/19 25 Active HYDROcodone-aceta minophen (NORCO) 5-325 MG tabletIndications :Chronic Pain Take 1 tablet by mouth every 8 (eight) hours as needed. Indication s: Chronic Pain 5 tablet 01/22/20 25 Active Senna (SENOKOT) 8.6 MG tablet Take 1 tablet (8.6 mg total) by mouth daily as needed for Constipati on. 10 tablet 01/22/20 25 Active ondansetron (ZOFRAN-ODT) 4 MG disintegrating tablet Take 1 tablet (4 mg total) by mouth every 8 (eight) hours as needed for Nausea. 20 tablet 01/22/20 25 Active traZODone (DESYREL) 12.5 mg Tab Take 1 split tab (12.5 mg total) by mouth nightly at bedtime for 30 days. 30 split tab 01/22/20 Active sertraline (ZOLOFT) 50 MG tablet Take 1 tablet (50 mg total) by mouth daily for 30 days. 30 tablet 12/13/19 25 025 cefdinir (OMNICEF) 300 MG Cap capsule Take 1 capsule (300 mg total) by mouth 2 (two) times daily. 01/16/20 025 Discontinued(St op Taking at Discharge) levoFLOXacin (LEVAQUIN) 750 MG tablet Take 1 tablet (750 mg total) by mouth every other day for 10 days. 5 tablet 01/22/20 025 Discontinued levoFLOXacin (LEVAQUIN) 750 MG tablet Take 1 tablet (750 mg total) by mouth every other day for 4 doses. 4 tablet 01/22/20 25 025 Discontinued levoFLOXacin (LEVAQUIN) 750 MG tablet Take 1 tablet (750 mg total) by mouth every other day for 4 doses. 4 tablet 01/22/20 025 Active Problems Problem Noted Date Diagnosed Date UTI (urinary tract infection) 01/19/2025 Pyelonephritis 12/10/2024 Encounters Date Type Department Care Team Description 01/23/2025 Hospital Follow-up Call [facility] [place] [address] Teresa Dietrich LPN Follow Up Call (AGNES 01/18-01/21/25) 01/19/2025 3:10 PM CDT - 01/19/2025 4:37 PM CDT Surgery [facility] [place], [place] [id number] Aron Almendarez MD CYSTOSCOPY URETEROSCOPY, LASER LITHOTRIPSY, LEFT URETERAL STENT PLACEMENT 01/19/2025 2:50 PM CDT Anesthesia [place] [address] Crispin Silveira MD Ruocco, Eric, MD 01/19/2025 9:11 AM CDT - 01/21/2025 1:00 PM CDT [facility]3][place] [address] Keren Chavira MD Filipova, Hana, MD Urinary Symptoms Discharge Disposition: Home or Self Care (Routine Discharge) 01/19/2025 Travel 12/16/2024 Hospital Follow-up Call [place] [address] Teresa Dietrich LPN Follow Up Call (AGNES 12/10-12/12/24) 12/10/2024 7:57 AM GAUGER CHIEF - 12/12/2024 5:29 PM GAUGER CHIEF [facility] [address] [place] [address] Keren Chavira MD Goldberg, Deborah, MD Islam, Maaroof, MD Near Syncope; Fall Discharge Disposition: Home or Self Care (Routine Discharge) 12/10/2024 Travel from Last 3 Months Social History Tobacco Use Types Packs/Day Years Used Date Smoking Tobacco: Never Smokeless Tobacco: Never Tobacco Cessation:Counseling Given: Not Answered Alcohol Use Standard Drinks/Week Comments Not Currently 0 (1 standard drink = 0.6 oz pur e alcohol) [facility] Utilities Answer Date Recorded In the past 12 months has e [employer], gas, oil, or water [place] threatened to shut off services in your home? No 01/21/2025 Humiliation, Afraid, Rape, and Kick questionnair e Answer Date Recorded Within the last year, have y ou been afraid of your partner or ex-partner? No 01/21/2025 Within the last year, have y ou been humiliated or emotionally abused in other ways by your partner or ex-partner? No Within the last year, have y ou been kicked, hit, slapped, or otherwise physically hurt by your partner or ex-partner? No 01/21/2025 Within the last year, have y ou been raped or forced to have any kind of sexual activity by your partner or ex-partner? No 01/21/2025 Social Connection and Isolat ion Panel [NHANES] Answer Date Recorded In a typical week, how many times do you talk on the phone with family, friends, or neighbors? Three times a week 12/11/2024 How often do you get togethe r with friends or relatives? Twice a week 12/11/2024 How often do you attend chur ch or hoahaoism services? More than 4 times per year 12/11/2024 Do you belong to any clubs o r organizations such as advent groups, unions, fraternal or athletic groups, or [...] care, and heating? Not hard at all 01/21/2025 [facility] of Occupat ional Health - Occupational Stress [...] the money to buy more. Never true 01/22/20 25 Within the past 12 months, t he food you bought just didn't last and you didn't have money to get more. Never true 01/21/2025 PRAPARE - Transportation Answer Date Re corded In the past 12 months, has l ack of transportation kept you from medical appointments or from getting medications? No 12/28 In the past 12 months, has l ack of transportation kept you from meetings, work, or from getting things needed for daily living? No 01/21/2025 Housing Stability Vital Sign Answer Tobi e Recorded In the last 12 months, was t here a time when you were not able to pay the mortgage or rent on time? No 01/21/2025 In the past 12 months, how m any times have you moved where you were living? 0 01/21/2025 At any time in the past 12 m [facility], were you homeless or living in a half-way (including now)? No 01/21/2025 Comments No Sex and Gender Information Value Date Recorded Sex Assigned at Female 12/10/2024 8:16 AM GAUGER CHIEF Legal Sex Female 2:58 PM GAUGER CHIEF Gender Identity Not on file Sexual Orientation Not on file Last Filed Vital Signs Vital Sign Reading Time Taken Comments Blood Pressure 146/62 01/21/2025 7:45 AM CDT Pulse 53 01/21/2025 7:45 AM CDT Temperature 36.5 C (97.7 F) 01/21/2025 7:45 AM CDT Respiratory Rate 16 01/21/2025 7:45 AM CDT Oxygen Saturation 98% 01/21/2025 7:45 AM CDT Inhaled Oxygen Concentration - - Weight 77.7 kg (171 lb 4.8 oz) 01/19/2025 9:00 A M CDT Height 165.1 cm (5' 5 ) 01/19/2025 9:00 AM CDT Body Mass Index 28.51 01/19/2025 9:00 AM CDT Plan of Treatment Health Maintenance Due Date [...] Vaccine ( - 2023-2 5 season) 2024 RSV Immunization or 60+ Years (1 - 1-dose 75+ series) 2027 Meningococcal B Vaccine Aged Out No l onger eligible based on patient's age to complete this topic Meningococcal Vaccine Aged Out No renay du eligible based on patient's age to complete this topic RSV Immunizations Under 20 Months Aged Out No longer eligible based on patient's age to complete this topic Goals Goal Patient Goal Type Associated Problems Recent Progress Patient-Stated? Author Patient will return to prior living situation and remain independent in ADLs upon discharge from hospital Lifestyle No Lauren Vickers RN Medical Devices Implanted Type Area Appeals Assistant Device Identifier Shelf Expiration Date Model / Serial / Lot Stent Ureteral Contour Vl 4.8fr X 22-30cm - [id number] Implanted:Qty : 1 on 01/19/2025 by Aron Almendarez MD at [facility] Stent Left: Ureter [employer]UN [id number] 08/08/2027 [id number] / / [id number] Procedures Procedure Name Priority Date/Time Associated Diagnosis Comments POCT GLUCOSE - EARLY DOCKED DEVICE Routine 01/21/2025 11:37 AM CDT POCT GLUCOSE - EARLY DOCKED DEVICE Routine 01/21/2025 6:04 AM CDT BASIC METABOLIC PANEL Routine 01/21/2025 3:40 AM CDT CBC W/DIFF AUTOMATED Routine 01/21/2025 3:40 AM CDT POCT GLUCOSE - EARLY DOCKED DEVICE Routine 01/20/2025 8:17 PM CDT POCT GLUCOSE - EARLY DOCKED DEVICE Routine 01/20/2025 5:02 PM CDT POCT GLUCOSE - EARLY DOCKED DEVICE Routine 01/20/2025 11:20 AM CDT POCT GLUCOSE - EARLY DOCKED DEVICE Routine 01/20/2025 8:20 AM CDT MAGNESIUM Routine 01/20/2025 3:40 AM CDT BASIC METABOLIC PANEL Routine 01/20/2025 3:40 AM CDT CBC W/DIFF AUTOMATED Routine 01/20/2025 3:40 AM CDT POCT GLUCOSE - EARLY DOCKED DEVICE Routine 01/19/2025 11:16 PM CDT POCT GLUCOSE - EARLY DOCKED DEVICE Routine 01/19/2025 3:47 PM CDT SURG XR RETROGRD UROGRAPHY Routine 01/19/2025 3:38 PM CDT STONE ANALYSIS Routine 01/19/2025 3:21 PM CDT CYSTOSCOPY URETEROSCOPY, STONE EXTRACTION, HOLMIUM LASER, STENT 01/19/2025 2:49 PM CDT LEFT URETERAL STONE/ UTI POCT GLUCOSE - EARLY DOCKED DEVICE Routine 01/19/2025 1:58 PM CDT URINE BACTERIA CULTURE STAT 11:02 AM CDT HC URINALYSIS AUTO W/O MICRO STAT 01/19/2025 11:02 AM CDT CULTURE, BACTERIA, BLOOD STAT 01/19/2025 9:43 AM CDT CULTURE, BACTERIA, BLOOD STAT 01/19/2025 9:43 AM CDT LACTIC ACID W REFLEX (SEPSIS) STAT 01/19/2025 9:43 AM CDT COMPREHENSIVE METABOLIC PANEL STAT 01/19/2025 9:43 AM CDT CBC W/DIFF AUTOMATED STAT 01/19/2025 9:[address] ABD+PEL WO CON STAT 01/19/2025 9:1 5 AM CDT POCT GLUCOSE - EARLY DOCKED DEVICE Routine 12/12/2024 4:40 PM GAUGER CHIEF POCT GLUCOSE - EARLY DOCKED DEVICE Routine 12/12/2024 3:20 PM GAUGER CHIEF POCT GLUCOSE - EARLY DOCKED DEVICE Routine 12/12/2024 11:06 AM GAUGER CHIEF POCT GLUCOSE - EARLY DOCKED DEVICE Routine 12/12/2024 6:11 AM GAUGER CHIEF C-REACTIVE PROTEIN Routine 12/12/2024 6: 04 AM GAUGER CHIEF PROCALCITONIN (PCT) Routine 12/12/2024 6 :04 AM GAUGER CHIEF COMPREHENSIVE METABOLIC PANEL Routine 12/12/2024 6:04 AM GAUGER CHIEF CBC W/DIFF AUTOMATED Routine 12/12/2024 6:04 AM GAUGER CHIEF POCT GLUCOSE - EARLY DOCKED DEVICE Routine 12/11/2024 7:43 PM GAUGER CHIEF POCT GLUCOSE - EARLY DOCKED DEVICE Routine 12/11/2024 3:46 PM GAUGER CHIEF POCT GLUCOSE - EARLY DOCKED DEVICE Routine 12/11/2024 11:04 AM GAUGER CHIEF POCT GLUCOSE - EARLY DOCKED DEVICE Routine 12/11/2024 7:32 AM GAUGER CHIEF BASIC METABOLIC PANEL STAT 12/11/2024 6:00 AM GAUGER CHIEF CBC W/DIFF AUTOMATED STAT 12/11/2024 6:00 AM GAUGER CHIEF POCT GLUCOSE - EARLY DOCKED DEVICE Routine 12/10/2024 9:17 PM GAUGER CHIEF POCT GLUCOSE - EARLY DOCKED DEVICE Routine 12/10/2024 7:36 PM GAUGER CHIEF POCT GLUCOSE - EARLY DOCKED DEVICE Routine 12/10/2024 5:48 PM GAUGER CHIEF URINE BACTERIA CULTURE STAT 10:55 AM GAUGER CHIEF HC URINALYSIS AUTO W/O MICRO STAT 12/10/2024 10:[address] ABD+PEL WO CON STAT 12/10/2024 9:4 [address] CERV SPINE WO CON STAT 12/10/2024 9:[address] HEAD WO CON STAT 12/10/2024 9:42 AM GAUGER CHIEF CULTURE, BACTERIA, BLOOD STAT 12/10/2024 8:48 AM GAUGER CHIEF CRITICAL CARE Routine 12/10/2024 8:32 AM GAUGER CHIEF ECG 12-LEAD STAT 12/10/2024 8:30 AM GAUGER CHIEF LACTIC ACID W REFLEX (SEPSIS) STAT 12/10/2024 8:27 AM GAUGER CHIEF HEMOGLOBIN, GLYCOSYLATED Routine 12/10/2024 8:14 AM GAUGER CHIEF THYROID STIM HORMONE TSH Routine 12/10/2024 8:14 AM GAUGER CHIEF MAGNESIUM Routine 12/10/2024 8:14 AM GAUGER CHIEF TSH W/REFLEX Routine 12/10/2024 8:14 AM GAUGER CHIEF TROPONIN, QUANT STAT 12/10/2024 8:14 AM GAUGER CHIEF COMPREHENSIVE METABOLIC PANEL STAT 12/10/2024 8:14 AM GAUGER CHIEF CBC W/DIFF AUTOMATED STAT 12/10/2024 8:14 AM GAUGER CHIEF from Last 3 Months Results * (ABNORMAL) POCT glucose (01/21/2025 11:37 AM CDT) Only the most recent of20 resultswithin the time period is included. GLUCOSE POC 174(H) 70 - 99 mg/dL 01/21/2025 11:[address] [facility] 01/21/2025 11:3 7 AM CDT Zacarias Shaikh MD POCT ORDERABLES - DEVICE Final Result [facility] [address] [place] [address], [place] [phone] * (ABNORMAL) BASIC METABOLIC PANEL (01/21/2025 3:40 AM CDT) Only the most recent of3 resultswithin the time period is included. GLUCOSE 128(H) 70 - 99 MG/DL 01/21/2025 4:[address] [facility] BUN 28(H) 7 - 18 MG/DL 01/21/2025 4:[address] [facility] CREATININE S/P/B 1.80(H) 0.55 - 1.02 MG/DL 01/21/2025 4:[address] [facility] SODIUM S/P/B 142 136 - 145 MMOL/L 01/21/2025 4:[address] [facility] POTASSIUM S/P/B 4.1 3.5 - 5.1 MMOL/L 01/21/2025 4:[address] [facility] CHLORIDE S/P/B 113 97 - 115 MMOL/L 01/21/2025 4:[address] [facility] CO2 22.6 21 - 32 MMOL/L 01/21/2025 4:[address] [facility] CALCIUM S/P/B 8.6 8.5 - 10.1 MG/DL 01/21/2025 4:[address] [facility] ANION GAP 6.4 2 - 10 MMOL/L 01/21/2025 4:[address] [facility] BUN CREATININE RATIO 15.6 6 - 26 01/21/2025 4:[address] [facility] GFR ESTIMATE 30(L) >90 ML/MIN/1.7 3 M2 01/21/2025 4:[address] [facility] Comment: NOTE: eGFR is not calculated for patients <18 years of age or gender unknown. This is an estimated GFR calculation using the new CKD EPI creatinine equation without race and so does not require a correction factor for race. This estimated GFR should not be used for calculating drug doses. 01/21/2025 3:40 AM CDT Aron Almendarez MD LABORATORY Final Result [facility] [address] [place] [address], [place] [phone] * (ABNORMAL) CBC W/DIFF AUTOMATED (01/21/2025 3:40 AM CDT) Only the most recent of6 resultswithin the time period is included. WBC 10.77 4.5 - 11.0 x10'3/uL 01/21/2025 4:[address] [facility] RBC 3.29(L) 4.20 - 5.40 x10'6/uL 01/21/2025 4:[address] [facility] HGB 9.9(L) 12.0 - 16.0 G/DL 01/21/2025 4:[address] [facility] HCT 29.2(L) 38.0 - 48.0 % 01/21/2025 4:[address] [facility] MCV 88.8 81.0 - 99.0 FL 01/21/2025 4:[address] [facility] MCH 30.1 27.0 - 31.0 PG 01/21/2025 4:[address] [facility] MCHC 33.9 32.0 - 36.0 G/DL 01/21/2025 4:[address] [facility] RDW 13.1 11.5 - 14.5 % 01/21/2025 4:[address] [facility] PLT 200 130 - 400 x10'3/uL 01/21/2025 4:[address] [facility] MPV 9.6 9.3 - 12.2 FL 01/21/2025 4:[address] [facility] DIFFERENTIAL TYPE AUTOMATED DIFFERENTIAL 01/21/2025 4:[address] [facility] NEUTROPHILS % 68.4 % 01/21/2025 4:[address] [facility] LYMPHOCYTES % 24.4 % 01/21/2025 4:[address] [facility] MONOCYTES % 4.8 % 01/21/2025 4:[address] [facility] EOSINOPHILS 1.6 % 01/21/2025 4:[address] [facility] BASOPHILS 0.4 % 01/21/2025 4:[address] [facility] IMMATURE GRANS % 0.4 % 01/22/20 4:[address] [facility] ABS. NEUTROPHILS 7.37 1.80 - 7.70 x10'3/uL 01/21/2025 4:[address] [facility] ABS. LYMPHOCYTES 2.63 1.00 - 4.80 x10'3/uL 01/21/2025 4:[address] [facility] ABS. MONOCYTES 0.52 0.24 - 0.86 x10'3/uL 01/21/2025 4:[address] [facility] ABS. EOSINOPHILS 0.17 0.04 - 0.36 x10'3/uL 01/21/2025 4:[address] [facility] ABS. BASOPHILS 0.04 0.01 - 0.08 x10'3/uL 01/21/2025 4:[address] [facility] ABS. IMMATURE GRANULOCYTES 0.04 0.00 - 0.49 x10'3/uL 01/21/2025 4:[address] [facility] 01/21/2025 3:40 AM CDT Aron Almendarez MD LABORATORY Final Result [facility] [address] [place] [address], * (ABNORMAL) MAGNESIUM (01/20/2025 3:40 AM CDT) Only the most recent of2 resultswithin the time period is included. MAGNESIUM 1.7(L) 1.8 - 2.4 MG/DL 01/20/2025 4:[address] [facility] 01/20/2025 3:40 AM CDT Aron Almendarez MD LABORATORY Final Result [facility] [address] [place] [address], [place] [phone] * SURG XR RETROGRD UROGRAPHY (01/19/2025 3:38 PM CDT) Anatomical Region Laterality Modality Abdomen Radiographic Geri ging 01/20/2025 6:08 AM CDT Impressions 01/20/2025 6:09 AM CDT Impression: Fluoroscopic spot views of left retrograde urography with stent placement obtained for intraoperative control purposes and evaluated postoperatively. Referred By: Interpreted By: Edvin Mancia MD, 01/20/2025 6:08 AM Narrative 01/20/2025 6:09 AM CDT [address] [address] Intraoperative fluoroscopic views of the retrograde urography History: Abdominal pain Dose: Total Dose Area Product: 2.5195 (Gycm2). Technique: Intraoperative fluoroscopy control images obtained. Findings: Submitted images demonstrate cannulation of the left ureter with partial opacification of the left renal collecting system and ureter. Final image demonstrates a left ureteral stent Procedure Note Edvin Mancia MD - 01/20/[address] [address] Intraoperative fluoroscopic views of the retrograde urography History: Abdominal pain Dose: Total Dose Area Product: 2.5195 (Gycm2). Technique: Intraoperative fluoroscopy control images obtained. Findings: Submitted images demonstrate cannulation of the left ureter withpartial opacification of the left renal collecting system and ureter.Final image demonstrates a left ureteral stent Impression: Fluoroscopic spot views of left retrograde urography withstent placement obtained for intraoperative control purposes and evaluatedpostoperatively. Referred By: Interpreted By: Edvin Mancia MD, 01/20/2025 6:08 AM Aron Almendarez MD IMAGES ONLY Final Result * STONE ANALYSIS (01/19/2025 3:21 PM CDT) SOURCE KIDNEY STONE 01/19/2025 3:[address] [facility] STONE ANALYSIS COMPONENT REPORT 01/28/2025 5:55 PM CDT [facility] Comment: Calcium Oxalate Dihydrate (Weddellite) 15% Calcium Oxalate Monohydrate (Whewellite) 70% Carbonate Apatite (Dahllite) 15% STONE ANALYSIS WEIGHT 0.008 g 01/28/2025 5:55 PM CDT [facility] Comment: This test was developed and its analytical performance characteristics have been determined by [facility]. It has not been cleared or approved by the FDA. This assay has been validated pursuant to the CLIA regulations and is used for clinical purposes. Test performed by [facility] [address] [place] [id number] Pet Caretaker: Farzaneh Shields MD,PHD,ALPHONSO Test Reported by [facility], [facility], [address] [place], [place] Tarun Garcia M.D., Ph.D., Director of Laboratories , CLIA [id number] STONE CALCULUS SPECIMEN / Unknown 01/19/2025 3:21 PM CDT Aron Almendarez MD BODY FLUIDS AND STOOLS ORDERABLE S Final Result [facility] [address] [place] [address], [place] [phone] [facility] [address] [place] [address], [place] [phone] * (ABNORMAL) URINALYSIS (01/19/2025 11:02 AM CDT) Only the most recent of2 resultswithin the time period is included. SPECIMEN TYPE URINE CLEAN CATCH 01/19/2025 10:[address] [facility] COLOR (U) LIGHT ORANGE 01/19/2025 11:[address] [facility] TRANSPARENCY EXTREMELY TURBID 01/19/2025 11:[address] [facility] SPECIFIC GRAVITY (U) 1.010 1.001 - 1.030 01/19/2025 11:[address] [facility] U PH 5.5 5.0 - 9.0 01/19/2025 11:[address] [facility] LEUKOCYTES (U) 500(A) NEGATIVE 01/19/2025 11:[address] [facility] NITRITES 1+(A) NEGATIVE 01/19/2025 11:[address] [facility] PROTEIN RANDOM (U) 30(H) <30 MG/DL 01/19/2025 11:[address] [facility] GLUCOSE (U) NORMAL NORMAL MG/DL 01/19/2025 11:[address] [facility] KETONES MG/DL (U) NEGATIVE NEGATIVE MG/DL 01/19/2025 11:[address] [facility] UROBILINOGEN NORMAL NORMAL MG/DL 01/19/2025 11:[address] [facility] BILIRUBIN (U) NEGATIVE NEGATIVE MG/DL 01/19/2025 11:[address] [facility] BLOOD (U) 3+(A) NEGATIVE 01/19/2025 11:[address] [facility] WBC/HPF >100(H) <6 /HPF 01/19/2025 11:[address] [facility] WBC CLUMPS PRESENT 01/19/2025 11:[address] [facility] RBC/HPF 93(H) <6 /HPF 01/19/2025 11:[address] [facility] BACTERIA (U) MANY(A) NONE /HPF 01/19/2025 11:[address] [facility] SQUAMOUS EPITHELIALS RARE /HPF 01/19/2025 11:[address] [facility] URINE SPECIMEN OBTAINED BY CLEAN CATCH PROCEDURE / Unknown 01/19/2025 11:02 AM CDT us Opal Haynes NP URINE ORDERABLES Final Result [facility] [address] [place] [address], [place] [phone] * (ABNORMAL) CULTURE URINE (01/19/2025 11:02 AM CDT) Only the most recent of2 resultswithin the time period is included. SPEC DESCRIPTION URINE CLEAN CATCH 01/19/2025 10:[address] [facility] SPECIAL REQUESTS NO SPECIAL REQUEST 01/19/2025 10:[address] [facility] CULTURE RESULT 50,000-100, 000 COL/ML ENTEROBACTE R CLOACAE COMPLEX (A) 01/21/2025 7:[address] [facility] URINE SPECIMEN OBTAINED BY CLEAN CATCH PROCEDURE / Unknown 01/19/2025 11:02 AM CDT 01/19/2025 11:06 AM CDT Narrative Organism Antibiotic Method Susceptibility Enterobacter cloacae complex CEFEPIME PATITO (VITEK) 2: Sensitive Enterobacter cloacae complex CEFTRIAXONE PATITO (VITEK) >=64: Resistant Enterobacter cloacae complex CEFTAZIDIME PATITO (VITEK) >=64: Resistant Enterobacter cloacae complex CEFAZOLIN PATITO (VITEK) >=64: Resistant Enterobacter cloacae complex NITROFURANTOIN PATITO (VITEK ) 64: Intermediate Comment:INTERMEDIATE Enterobacter cloacae complex GENTAMICIN PATITO (VITEK) <=1: Sensitive Enterobacter cloacae complex LEVOFLOXACIN PATITO (VITEK) 0.25: Sensitive Enterobacter cloacae complex MEROPENEM PATITO (VITEK) <=0.25: Sensitive Enterobacter cloacae complex PIPRACIL/TAZO PATITO (VITEK) >=128: Resistant Enterobacter cloacae complex TRIMETH-SULFAMETH. PATITO (V ITEK) <=20: Sensitive Opal Haynes HUMAN RESOURCE MANAGER MICROBIOLOGY - GENERAL ORDERA BLES Final Result Performing Organization Address City/[facility]/ZIP Co de Phone Number [facility] [address] [place] [address], * LACTIC ACID W REFLEX (SEPSIS) (01/19/2025 9:43 AM CDT) Only the most recent of2 resultswithin the time period is included. LACTIC ACID VENOUS 1.7 0.4 - 2.0 MMOL/L 01/19/2025 10:[address] [facility] 01/19/2025 9:43 AM CDT Opal Haynes NP LABORATORY Final Result [facility] [address] [place] [id number], * (ABNORMAL) COMPREHENSIVE METABOLIC PANEL (01/19/2025 9:43 AM CDT) Only the most recent of3 resultswithin the time period is included. [facility] GLUCOSE 164(H) 70 - 99 MG/DL 01/19/2025 10:[address] [facility] BUN 25(H) 7 - 18 MG/DL 01/19/2025 10:[address] [facility] CREATININE S/P/B 1.91(H) 0.55 - 1.02 MG/DL 01/19/2025 10:[address] [facility] SODIUM S/P/B 139 136 - 145 MMOL/L 01/19/2025 10:[address] [facility] POTASSIUM S/P/B 3.7 3.5 - 5.1 MMOL/L 01/19/2025 10:[address] [facility] CHLORIDE S/P/B 106 97 - 115 MMOL/L 01/19/2025 10:[address] [facility] CO2 23.4 21 - 32 MMOL/L 01/19/2025 10:[address] [facility] CALCIUM S/P/B 9.1 8.5 - 10.1 MG/DL 01/19/2025 10:[address] [facility] BILIRUBIN TOTAL S/P/B 0.3 0.2 - 1.2 MG/DL 01/19/2025 10:[address] [facility] Comment: THIS ASSAY IS NOT RECOMMENDED FOR PATIENTS UNDERGOING TREATMENT WITH ELTROMBOPAG DUE TO THE POTENTIAL FOR FALSELY ELEVATED RESULTS. TOTAL PROTEIN S/P/B 7.0 6.4 - 8.2 G/DL 01/19/2025 10:[address] [facility] ALBUMIN S/P/B 3.2(L) 3.4 - 5.0 G/DL 01/19/2025 10:[address] [facility] AST 8(L) 15 - 37 U/L 01/19/2025 10:[address] [facility] ALT 12(L) 14 - 55 U/L 01/19/2025 10:[address] [facility] ALKALINE PHOSPHATASE S/P/B 78 50 - 136 U/L 01/19/2025 10:[address] [facility] ANION GAP 9.6 2 - 10 MMOL/L 01/19/2025 10:[address] [facility] BUN CREATININE RATIO 13.1 6 - 26 01/19/2025 10:[address] [facility] A/G RATIO 0.8(L) 1.0 - 2.0 RATIO 01/19/2025 10:[address] [facility] GFR ESTIMATE 28(L) >90 ML/MIN/1.7 3 M2 01/19/2025 10:[address] [facility] Comment: NOTE: eGFR is not calculated for patients <18 years of age or gender unknown. This is an estimated GFR calculation using the new CKD EPI creatinine equation without race and so does not require a correction factor for race. This estimated GFR should not be used for calculating drug doses. 01/19/2025 9:43 AM CDT us Opal Haynes NP LABORATORY Final Result [facility] [address] [place] [address], * CULTURE, BACTERIA, BLOOD (01/19/2025 9:43 AM CDT) Only the most recent of3 resultswithin the time period is included. SPEC DESCRIPTION BLOOD 01/19/2025 9:[address] [facility] SPECIAL REQUESTS NO SPECIAL REQUEST 01/19/2025 9:[address] [facility] CULTURE RESULT NO GROWTH 5 DAYS 01/24/2025 10:[address] [facility] BLOOD SPECIMEN OBTAINED FOR BLOOD CULTURE / Unknown 01/19/2025 9:43 AM CDT 01/19/2025 9:55 AM CDT us Opal Haynes HUMAN RESOURCE MANAGER MICROBIOLOGY - GENERAL ORDERA BLES Final Result [facility] [address] [place] [address], [place] [phone] * CT ABD+PEL WO CON (01/19/2025 9:15 AM CDT) Only the most recent of2 resultswithin the time period is included. Anatomical Region Laterality Modality Abdomen Computed Tomogra phy 01/19/2025 10:0 2 AM CDT Impressions 01/19/2025 10:23 AM CDT =====IMPRESSION:===== 1. Abnormal study demonstrating 5 mm in diameter distal left ureteral stone causing moderate obstruction. 2. Diffuse wall thickening and surrounding inflammatory change involving the urinary bladder suggesting acute cystitis. Correlation with urinalysis would be recommended. 3. No other evidence of inflammatory change, abscess nor ascites. 4. No evidence of mechanical bowel obstruction or perforation. 5. Diffuse atherosclerotic vascular calcification. Ordered By: OPAL HAYNES Interpreted By: Reinier Baum MD, 01/19/2025 10:02 AM Narrative 01/19/2025 10:23 AM CDT [facility] [address] EXAMINATION: CT Abdomen and Pelvis without contrast EXAM DATE/TIME: 01/19/2025 9:11 AM REASON FOR EXAM: hematuria, abdominal pain COMPARISON: 12/10/2024 TECHNIQUE: Computed tomography of the abdomen and pelvis was obtained without administration of intravenous contrast according to routine protocol. Sagittal and coronal reconstruction. A dose lowering technique was used for this procedure, which may include, but is not limited to, dose reduction technique, automated exposure control, iterative reconstruction, ALARA (As Low As Reasonably Achievable), or Image Gently techniques. FINDINGS: CT ABDOMEN: Visualized portions of the lung bases demonstrate no acute abnormality. Moderate coronary atherosclerotic calcification is demonstrated. No significant hiatal hernia. The liver is normal in size. No significant focal intrahepatic lesions are demonstrated. There is evidence of cholelithiasis with no secondary findings of cholecystitis. There is mild persistent splenomegaly. There there are small indeterminate hypodense lesions present within the spleen which are technically indeterminate but appear unchanged from the previous study. The pancreas and the adrenal glands are unremarkable. There are no significant renal calcifications. There is an acute left side perirenal stranding and hydronephrosis. There is an approximately 5 mm in diameter calcified stone in the distal left ureter proximal to left UVJ causing moderate obstruction. There is no evidence of right ureteral stone nor hydronephrosis. There is some chronic renal parenchymal scarring bilaterally with probable small benign hemorrhagic cyst lower pole left kidney. No significant solid renal mass demonstrated. There is no acute inflammatory change, abscess nor ascites. No evidence of mechanical bowel obstruction or perforation. No significant lymphadenopathy. Diffuse atherosclerotic vascular calcification with no evidence of AAA. The IVC is unremarkable. CT PELVIS: No pelvic mass or adenopathy. There is mild diffuse wall thickening involving the urinary bladder with some surrounding ill-defined inflammatory stranding and edema suggesting acute cystitis. No other evidence of pelvic inflammatory change. No evidence of abscess. Diffuse atherosclerotic vascular calcification. Procedure Note Reinier Baum MD - 01/19/[address] [address] EXAMINATION: CT Abdomen and Pelvis without contrast EXAM DATE/TIME: 01/19/2025 9:11 AM REASON FOR EXAM: hematuria, abdominal pain COMPARISON: 12/10/2024 TECHNIQUE: Computed tomography of the abdomen and pelvis was obtainedwithout administration of intravenous contrast according to routineprotocol. Sagittal and coronal reconstruction. A dose lowering technique was used for this procedure, which may include,but is not limited to, dose reduction technique, automated exposurecontrol, iterative reconstruction, ALARA (As Low As ReasonablyAchievable), or Image Gently techniques. FINDINGS: CT ABDOMEN: Visualized portions of the lung bases demonstrate no acuteabnormality. Moderate coronary atherosclerotic calcification isdemonstrated. No significant hiatal hernia. The liver is normal in size. No significant focal intrahepatic lesions aredemonstrated. There is evidence of cholelithiasis with no secondaryfindings of cholecystitis. There is mild persistent splenomegaly. There there are small indeterminatehypodense lesions present within the spleen which are technicallyindeterminate but appear unchanged from the previous study. The pancreas and the adrenal glands are unremarkable. There are no significant renal calcifications. There is an acute left sideperirenal stranding and hydronephrosis. There is an approximately 5 mm indiameter calcified stone in the distal left ureter proximal to left UVJcausing moderate obstruction. There is no evidence of right ureteral stonenor hydronephrosis. There is some chronic renal parenchymal scarringbilaterally with probable small benign hemorrhagic cyst lower pole leftkidney. No significant solid renal mass demonstrated. There is no acute inflammatory change, abscess nor ascites. No evidence ofmechanical bowel obstruction or perforation. No significantlymphadenopathy. Diffuse atherosclerotic vascular calcification with noevidence of AAA. The IVC is unremarkable. CT PELVIS: No pelvic mass or adenopathy. There is mild diffuse wallthickening involving the urinary bladder with some surrounding ill-definedinflammatory stranding and edema suggesting acute cystitis. No otherevidence of pelvic inflammatory change. No evidence of abscess. Diffuseatherosclerotic vascular calcification. =====IMPRESSION:===== 1. Abnormal study demonstrating 5 mm in diameter distal left ureteralstone causing moderate obstruction. 2. Diffuse wall thickening and surrounding inflammatory change involvingthe urinary bladder suggesting acute cystitis. Correlation with urinalysiswould be recommended. 3. No other evidence of inflammatory change, abscess nor ascites. 4. No evidence of mechanical bowel obstruction or perforation. 5. Diffuse atherosclerotic vascular calcification. Ordered By: OPAL HAYNES Interpreted By: Reinier Baum MD, 01/19/2025 10:02 AM Opal Haynes HUMAN RESOURCE MANAGER CT Final Result * PROCALCITONIN (PCT) (12/12/2024 6:04 AM GAUGER CHIEF) Procalcitonin <0.05 0.00 - 0.49 NG/ML 12/12/2024 8:[address] [facility] 12/12/2024 6:04 AM GAUGER CHIEF uLcy Bowser MD LABORATORY Final Result [facility] [address] [place] [address], [place] [phone] * (ABNORMAL) C-REACTIVE PROTEIN (12/12/2024 6:04 AM GAUGER CHIEF) C-REACTIVE PROTEIN 1.01(H) <0.29 mg/dL 12/12/2024 7:[address] [facility] 12/12/2024 6:04 AM GAUGER CHIEF Lucy Bowser MD LABORATORY Final Result [facility] [address] [place] [address], [place] [phone] * CT HEAD WO CON (12/10/2024 9:42 AM GAUGER CHIEF) Anatomical Region Laterality Modality Head Computed Tomogra phy 12/10/2024 10:0 3 AM GAUGER CHIEF Impressions 12/10/2024 10:07 AM GAUGER CHIEF IMPRESSION: 1. No CT evidence of an acute intracranial abnormality. 2. No cervical spine fracture. Ordered By: KEREN CHAVIRA Interpreted By: Darrick Monterroso MD, 12/10/2024 10:03 AM Narrative 12/10/2024 10:07 AM GAUGER CHIEF [address] [address] EXAMINATION: CT Cervical Spine, CT head. [id number] EXAM DATE/TIME: 12/10/2024 9:36 AM REASON FOR [...] Procedure Note Darrick Monterroso MD - 12/10/2024 [facility] [address] [place], [place] [address] EXAMINATION: CT Cervical Spine, CT head. [id number] EXAM DATE/TIME: 12/10/2024 9:36 AM REASON FOR [...] No cervical spine fracture. Ordered By: KEREN CHAVIRA Interpreted By: Darrick Monterroso MD, 12/10/2024 10:03 AM Keren Chavira MD CT Final Result * CT CERV SPINE WO CON (12/10/2024 9:42 AM GAUGER CHIEF) Anatomical Region Laterality Modality Spine Computed Tomogra phy 12/10/2024 10:0 3 AM GAUGER CHIEF Impressions 12/10/2024 10:07 AM GAUGER CHIEF IMPRESSION: 1. No CT evidence of an acute intracranial abnormality. 2. No cervical spine fracture. Ordered By: KEREN CHAVIRA Interpreted By: Darrick Monterroso MD, 12/10/2024 10:03 AM Narrative 12/10/2024 10:07 AM GAUGER CHIEF [address] [address] EXAMINATION: CT Cervical Spine, CT head. [id number] EXAM DATE/TIME: 12/10/2024 9:36 AM REASON FOR [...] Procedure Note Darrick Monterroso MD - 12/10/[address] [address] EXAMINATION: CT Cervical Spine, CT head. [id number] EXAM DATE/TIME: 12/10/2024 9:36 AM REASON FOR [...] No cervical spine fracture. Ordered By: KEREN CHAVIRA Interpreted By: Darrick Monterroso MD, 12/10/2024 10:03 AM Keren Chavira MD CT Final Result * Critical Care (12/10/2024 8:32 AM GAUGER CHIEF) Narrative Keren Chavira MD - 12/10/2024 8:32 AM GAUGER CHIEF Keren Chavira MD 12/10/2024 11:54 AM Critical Care Performed by: Keren Chavira MD Authorized by: Keren Chavira MD Critical care provider statement: Critical care [...] old charts Care discussed with: admitting provider Keren Chavira MD PROCEDURE/MINOR SURGICAL ORDE RABLES Final Result * ECG 12 lead (12/10/2024 8:30 AM GAUGER CHIEF) 12/10/2024 8:30 AM GAUGER CHIEF Narrative [facility] - 12/10/2024 1:55 PM GAUGER CHIEF [place] [address] Test Date: 2024-12-10 Pat Name: ROSELIA PEARCE Department: 41 Room: EXAM11 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: Female 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: 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 : 1950 Requested By: KEREN CHAVIRA Order Number: [id number] Reading MD: Juan Gunter Measurements Intervals [place] Rate: 61 P: 59 SC: 150 QRS: 9 QRSD: 102 T: 47 QT: 457 QTc: 464 Interpretive Statements SINUS RHYTHM Compared to ECG 09/10/2024 15:04:25 Sinus bradycardia no longer present ER CHIEF Procedure Note Juan Gunter MD - 12/10/[address] Test Date: 2024-12-10 Pat Name: ROSELIA PEARCE Department: 41 Room: EXAM11 Gender: Female 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: [id number] : 1950 Requested By: KEREN CHAVIRA Order Number: [id number] Reading MD: Juan Gunter Measurements Intervals [place] Rate: 61 P: 59 SC: 150 QRS: 9 QRSD: 102 T: 47 QT: 457 QTc: 464 Interpretive Statements SINUS RHYTHM Compared to ECG 09/10/2024 15:04:25 Sinus bradycardia no longer present ER CHIEF us Keren Chavira MD ECG ORDERABLES Final Result [facility] RAD * TSH W/REFLEX (12/10/2024 8:14 AM GAUGER CHIEF) TSH 2.120 0.358 - 3.74 uIU/ML 12/10/2024 1:[address] [facility] Comment: HIGH DOSES OF BIOTIN MAY INTERFERE WITH THIS TEST RESULT. CORRELATION TO CLINICAL HISTORY AND PRESENTATION RECOMMENDED. FREE T4 NOT INDICATED 12/10/2024 8:14 AM GAUGER CHIEF Rosalia Eldridge JULIANO LABORATORY Final Res ult [facility] [address] [place] [address], [place] [phone] * (ABNORMAL) HEMOGLOBIN, GLYCOSYLATED (12/10/2024 8:14 AM GAUGER CHIEF) HGB A1C 6.0(H) <5.7 % 12/10/2024 3:[address] [facility] Comment: ADA GUIDELINES 2010 5.7 TO 6.4% INCREASED RISK OF DIABETES > OR = 6.5% CONSISTENT WITH DIABETES ESTIMATED AVG GLUCOSE 126 mg/dL 12/10/2024 3:[address] [facility] 12/10/2024 8:14 AM GAUGER CHIEF Rosalia Eldridge [facility] LABORAT[facility] Final Res ult Performing Organization Address [facility] Co de Phone Number [facility] [address] [place] [address], [place] [phone] * TROPONIN, QUANT (12/10/2024 8:14 AM GAUGER CHIEF) TROPONIN I HIGH SENSITIVITY 12 <54 ng/L 12/10/2024 8:[address] [facility] Comment: HIGH DOSES OF BIOTIN, TROPONIN-SPECIFIC AUTOANTIBODIES, AND ANTIBODY THERAPY CONTAINING HAMA MAY INTERFERE WITH THIS TEST RESULT. CORRELATION TO CLINICAL HISTORY AND PRESENTATION RECOMMENDED. 12/10/2024 8:14 AM GAUGER CHIEF Keren Chavira MD LABORATORY Final Result [facility] [address] [place] [address], [place] [phone] * THYROID STIM HORMONE, TSH (12/10/2024 8:14 AM GAUGER CHIEF) TSH 2.100 0.358 - 3.74 uIU/ML 12/10/2024 2:37 PM GAUGER CHIEF [facility] Comment: HIGH DOSES OF BIOTIN MAY INTERFERE WITH THIS TEST RESULT. CORRELATION TO CLINICAL HISTORY AND PRESENTATION RECOMMENDED. 12/10/2024 8:14 AM GAUGER CHIEF us Rosalia Eldridge APNP LABORATORY Final Res ult [facility] [address] [place] [address], from Last 3 Months Insurance [address] [place] [address] [employer] Advance Directives * POLST (Latest Code Status on File) Date Activated Date Inactivated Comments 01/19/2025 2:41 PM 01/21/2025 3:40 PM Question Answer Comments Cardiopulmonary Resuscitatio n (CPR) If patient has no pulse and is not breathing: ATTEMPT Resuscitation CPR Medical Interventions when N OT in Cardiopulmonary Arrest (If patient is found with a pulse and/or is breathing): Comfort Focused - Do NOT Intubate * DNR Date Activated Date Inactivated Comments 01/19/2025 12:22 PM 01/19/2025 2:41 PM * DNR Date Activated Date Inactivated Comments 12/10/2024 1:53 PM 12/12/2024 7:29 PM Care Teams [employer]ognos Consultant Relationship Specialty Start Date End Date Hanna Ch, DAGOBERTO [address] [facility] [address] [place] [address] PCP - General CLINICAL NURSE SPECIALIST 12/10/24
[2025-02-06 18:26] LABS: Basophils Percent Auto 0.6 % (0.2-1.2); Eosinophils Absolute Auto 0.2 K/mm3 (0-0.3); Eosinophils Percent Auto 2.5 % (0-4.4); Hematocrit 35.1 % (37.0-47.0); Hemoglobin 11.8 g/dL (12.0-15.0); Immature Granulocyte Absolute 0.02 K/mm3 (0.00-0.031); Immature Granulocyte Percent A 0.3 % (0-0.5); Lymphocytes Absolute Auto 1.77 K/mm3 (0.9-3.2); Mean Corpuscular HGB Conc 33.6 g/dl (32-36); Mean Corpuscular Hemoglobin 30.6 pg (26-34); Mean Corpuscular Volume 91.2 fl (80-100); Mean Platelet Volume 11.2 fl (7.4-10.4); Monocytes Absolute Auto 0.4 K/mm3 (0.1-0.6); Monocytes Percent Auto 6.2 % (2.6-8.5); Neutrophils Absolute Auto 4.6 K/mm3 (1.3-6.7); Neutrophils Percent Auto 65.4 % (45.5-73.1); Platelet Count Result 189 k/mm3 (150-375); Red Blood Count 3.85 M/mm3 (4.2-5.4); Red Cell Distribution Width 13.3 % (11.5-14.5); White Blood Count 7.1 K/mm3 (4.5-10.0)
[2025-02-06 18:36] LABS: Hemoglobin A1C 6.2 % (<5.7)
[2025-02-06 18:39] LABS: Alanine Aminotransferase 13 U/L (6-35); Albumin Level 4.1 g/dL (3.5-5.1); Alkaline Phosphatase 61 U/L (38-126); Anion Gap 11 mmol/L (4-12); Aspartate Amino Transferase 22 U/L (14-36); Bilirubin,Total 0.7 mg/dL (0.2-1.3); Blood Urea Nitrogen 30 mg/dL (7-17); Calcium 9.4 mg/dL (8.4-10.2); Carbon Dioxide 25 mmol/L (22-30); Chloride 105 mmol/L (98-107); Cholesterol 122 mg/dL (0-200); Estimated Glomerular Filt Rate 29; Glucose 123 mg/dL (65-110); HDL Direct 48 mg/dL; Magnesium 1.7 mg/dL (1.6-2.3); Sodium 141 mmol/L (137-145); Triglycerides 118 mg/dL (<150)
[2025-02-06 18:50] LABS: LDL Cholesterol Direct 35 mg/dL
[2025-02-07 03:52] LABS: Free T4 Free Thyroxine Reflex 1.03 ng/dL (0.78-2.19)
[2025-02-07 04:46] LABS: Total Triiodothyronine (T3) 1.42 NG/ML (0.97-1.69)
== END 2025-02-06 08:37 | disposition home or self-care (01) ==
LOC: ANHGOSHLAB 08:37
PROVIDERS: PCP Internal Medicine; Visit Provider Internal Medicine Cardiovascular Disease
DX: E78.5 Hyperlipidemia, unspecified (principal); N18.30 Chronic kidney disease, stage 3 unspecified; E11.9 Type 2 diabetes mellitus without complications
CPT/HCPCS: 36415; 80053; 80061; 83036; 83735; 84439; 84443; 84480; 85025

== ENCOUNTER 2025-02-24 15:38 | Outpatient (CLI) | payer MEDICARE, SELFPAY ==
--- NOTE | ~2025-02-24 | MR_ITS ---
EXAMINATION: MR abdomen wo/w con DATE: 02/24/2025 16:59 INDICATION: Splenomegaly TECHNIQUE: Magnetic resonance imaging (MRI) of the abdomen was performed without and with 15 mL Multi josh intravenous contrast. Sequences included coronal T2-weighted SS-FSE, coronal and axial FS 2D-F IESTA, axial STIR FSE, axial T2-weighted SS-FSE, axial T2-weighted FS SS-FSE, axial diffusion-weighte d SE, axial dual-echo T1-weighted FSPGR, and axial and coronal T1-weighted LAVA. Postcontrast axial T 1-weighted LAVA images were obtained in a time course. Postcontrast coronal T1-weighted LAVA images w ere obtained. COMPARISON: CT dated 05/16/2024 FINDINGS: Cardiomegaly. No pericardial or pleural effusion. Hepatosplenomegaly with the liver measuring 18.3 cm craniocaudal length and the spleen measuring 16 cm in craniocaudal length. There are a few T2 hyperi ntense splenic lesions the largest with lobular margins and which demonstrate very slow progressive c ontrast enhancement beginning peripherally and extending centrally consistent with hemangiomas. The l argest measures 2.1 x 1.8 cm. The superior present and of similar size but significantly more subtle on the prior noncontrast CT. Gallbladder, pancreas 6 mm T2 hyperintense nonenhancing cystic lesion at the tail of the pancreas. Bilateral adrenal glands are normal. 10 mm T1 hyperintense, T2 hypointense nonenhancing complex proteinaceous/hemorrhagic cyst at the lower pole of the left kidney. T2 hyperin tense simple appearing nonenhancing cysts in the right kidney the largest measuring 8mm. There is cor tical scarring in the right kidney which consistent with sequela of prior infarct or infection. There are multiple T1 hypointense, fat saturating hemangiomas in the thoracic and lumbar spine with charac teristic lucent appearance with thickened vertical trabecular pattern on prior CT. Moderate lumbar sp ondylosis. IMPRESSION: 1. No significant interval change in a nonspecific hepatosplenomegaly or of several likely hemangioma s in the spleen. 2. Cardiomegaly. 3. Typical appearing 6 mm cystic-appearing lesion at the tail the pancreas. The differential diagnosi s includes pseudocyst, intraductal papillary mucinous neoplasm (IPMN), mucinous cystic neoplasm (MCN) , and the less common serous cystadenoma and neuroendocrine tumor. Correlate for history of pancreati tis and consider 1 year follow-up pre and postcontrast MRI. Reviewed, dictated and finalized at location B. IMPRESSION: 1. No significant interval change in a nonspecific hepatosplenomegaly or of sev eral likely hemangiomas in the spleen. 2. Cardiomegaly. 3. Typical appearing 6 mm cystic-appearing lesion at the tail the pancreas. The differential diagnosis includes pseudocyst, intraductal papillary mucinous adrien plasm (IPMN), mucinous cystic neoplasm (MCN), and the less common serous cystad enoma and neuroendocrine tumor. Correlate for history of pancreatitis and consi shila 1 year follow-up pre and postcontrast MRI.
== END 2025-02-24 15:39 | disposition home or self-care (01) ==
LOC: MICIMG 15:39
PROVIDERS: PCP Internal Medicine; Visit Provider Nurse Practitioner
DX: R16.1 Splenomegaly, not elsewhere classified (principal); I51.7 Cardiomegaly
CPT/HCPCS: 74183; A9577

== ENCOUNTER 2025-06-10 11:44 | Outpatient (CLI) | payer MEDICARE, SELFPAY ==
--- OUTSIDE RECORDS SUMMARY | 2025-06-10 11:48 | XMS_ITS | Encounter Summary ---
Author Organization [facility] Address [address] [place] [address] Phone Care Team Providers Care Supervisor Photocomposition Name Role Phone No, Physician Primary Care Provider [phone] Encounter Details Date Type Department Care Team (Late st Contact Info) Description 02/24/2025 Orders Only [facility] Scanning, Provider Social History Tobacco Use Types Packs/Day Years Used Date Smoking Tobacco: Never Assessed Comments Unknown Sex and Gender Information Value Date Recorded Sex Assigned at Not on file Legal Sex Female 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 Gender Identity Not on file Sexual Orientation Not on file documented as of this encounter Plan of Treatment Not on file documented as of this encounter Procedures Procedure Name Priority Date/Time Associated Diagnosis Comments SCAN - RADIOLOGY/IMAGING 02/24/2025 documented in this encounter Results * SCAN - RADIOLOGY/IMAGING (02/24/2025) Anatomical Region Laterality Modality Other us Provider Scanning Final Result documented in this encounter Visit Diagnoses Not on filedocumented in this encounter Care Teams Supervisor Photocomposition Relationship Specialty Start Date End Date No, Physician PCP - General 05/06/24 documented as of this encounter
--- OUTSIDE RECORDS SUMMARY | 2025-06-10 11:48 | XMS_ITS | Clinical Summary ---
Author Organization [facility] Address [address] [place] [address] Care Team Providers Care Multifold Operator Name Role Phone No, Physician Primary Care Provider [phone] Allergies No known active allergies Medications albuterol HFA (PROVENTIL HFA,VENTOLIN HFA,PROAIR HFA) 90 mcg/actuation inhaler Inhale 2 puffs every 6 (six) hours as needed 1 Active alendronate (FOSAMAX) 70 mg tablet Take 1 tablet (70 mg total) by mouth once a week 8 Active amitriptyline (ELAVIL) 25 mg tablet Take 1 tablet (25 mg total) by mouth daily 4 Active Eliquis 5 mg tablet Take 1 tablet (5 mg total) by mouth every 12 (twelve) hours Active ARIPiprazole (ABILIFY) 5 mg tablet Take 1 tablet (5 mg total) by mouth daily 1 Active ascorbic acid (VITAMIN C) 1,000 mg tablet Take 1 tablet (1,000 mg total) by mouth daily Active aspirin 325 mg tablet Take 1 tablet (325 mg total) by mouth daily Active atorvastatin (LIPITOR) 40 mg tablet Take 1 tablet (40 mg total) by mouth daily 0 Active bisacodyl EC (DULCOLAX EC) 5 mg EC tablet Take 1 tablet (5 mg total) by mouth daily as needed 3 Active calcium carb/D3/magnesium/ zinc (calcium carb-D3-mag ucb33-nfgh) 333 mg-200 unit -133 mg-5 mg tablet Take 3 tablets by mouth daily Active cholecalciferol (VITAMIN D-3) 2000 unit capsule Take 1 capsule (2,000 Units total) by mouth daily Active cyanocobalamin (Vitamin B-12) 1,000 mcg tablet Take 1 tablet (1,000 mcg total) by mouth daily Active fenofibrate micronized (LOFIBRA) 67 mg capsule Take 1 capsule (67 mg total) by mouth daily 4 Active fluticasone propionate (FLONASE) 50 mcg/actuation nasal spray Administer 2 sprays into affected nostril(s) daily 1 Active folic acid (FOLVITE) 1 mg tablet Take 1 tablet (1 mg total) by mouth daily 2 Active HYDROcodone-acetam inophen (NORCO) 5-325 mg per tablet Take 1 tablet by mouth every 8 (eight) hours as needed 5 Active hydrOXYzine (ATARAX) 10 mg tablet Take 1 tablet (10 mg total) by mouth every 8 (eight) hours as needed 8 Active ibuprofen (ADVIL,MOTRIN) 400 mg tablet Take 1 tablet (400 mg total) by mouth nightly as needed Active levoFLOXacin (LEVAQUIN) 750 mg tablet Take 1 tablet (750 mg total) by mouth every other day 5 Active lisinopriL (PRINIVIL,ZESTRIL) 10 mg tablet Take 1 tablet (10 mg total) by mouth daily Active omeprazole (PriLOSEC) 20 mg capsule Take 1 capsule (20 mg total) by mouth daily before breakfast Active ondansetron ODT (ZOFRAN-ODT) 4 mg disintegrating tablet Take 1 tablet (4 mg total) by mouth every 8 (eight) hours as needed 5 Active polyethylene glycol (MIRALAX) 17 gram packet Take 14 packets (238 g total) by mouth daily 1 Active senna (SENOKOT) 8.6 mg tablet Take 1 tablet by mouth daily as needed 5 Active sertraline (ZOLOFT) 100 mg tablet Take 1 tablet (100 mg total) by mouth daily 0 Active SUMAtriptan (IMITREX) 50 mg tablet Take 1 tablet (50 mg total) by mouth daily 4 Active topiramate (TOPAMAX) 25 mg tablet Take 1 tablet (25 mg total) by mouth daily 4 Active traZODone (DESYREL) 100 mg tablet Take 1 tablet (100 mg total) by mouth daily 4 Active Active Problems Problem Noted Date Diagnosed Date Pancreatic cyst 02/27/2025 Encounters Date Type Department Care Team Description 03/20/2025 8:33 AM CDT Anesthesia Event [facility] [address] [place] [phone] Joseluis Veronica MD 03/20/2025 8:00 AM CDT - 03/20/2025 8:30 AM CDT Surgery [facility] [address] [place] [phone] Brooks Andersen MD ESOPHAGOGASTRODUODENOSCOPY ULTRASOUND EXAM LIMITED 03/20/2025 7:23 AM CDT - 03/20/2025 9:43 AM CDT Hospital Encounter [facility] [address] [place] [phone] Eamon Berumen MD Das, Koushik Kumar, MD Pancreatic cyst Discharge Disposition: Discharge to home or self care 03/20/2025 Results Follow-Up [facility] [address] [place] [address] Medical Office [address] [place] [phone] Brooks Andersen MD MR Body Outside Consult 03/19/2025 3:30 PM CDT - 03/19/2025 11:59 PM CDT Hospital Encounter [facility] [address] [place] [id number] Diagnosis unknown Discharge Disposition: Discharge to home or self care 03/19/2025 Telephone [facility] [address] [place] [address] Medical Office [address] [place] [phone] Kierra Orozco RN GI 5.23 procedure MD change from Last 3 Months Surgical History Surgery Date Site/Laterality Comments PARTIAL HYSTERECTOMY SECTION x3 TONSILLECTOMY Medical History Medical History Date Comments Colon polyp GERD (gastroesophageal reflux disease) Hypertension Hyperlipidemia Asthma Type 2 diabetes mellitus Kidney stone Seizures (HCC) Depression Anxiety TIA (transient ischemic attack) Cataract Chronic constipation Family History Medical History Relation Name Comments Breast cancer Maternal Grandmother Cancer Mother Cancer Sister Relation Name Status Comments Maternal Grandmother Mother Sister Social History Tobacco Use Types Packs/Day Years Used Date Smoking Tobacco: Never Smokeless Tobacco: Never Tobacco Cessation:Counseling Given: Not Answered AUDIT-C Answer Date Recorded Q1: How often do you have a drink containing alcohol? Never 03/20/2025 Q2: How many drinks containi ng alcohol do you have on a typical day when you are drinking? Patient does not drink Q3: How often do you have si x or more drinks on one occasion? Never 03/20/2025 Personal Safety Answer Date Recorded Have you ever been in or are you currently in a harmful physical or emotional relationship or is someone making you feel afraid or unsafe? 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 Gender Identity Not on file Sexual Orientation Not on file Obstetrics History Last Filed Vital Signs Vital Sign Reading Time Taken Comments Blood Pressure 117/60 03/20/2025 9:25 AM CDT Pulse 49 03/20/2025 9:25 AM CDT Temperature 36.7 C (98 F) 03/20/2025 7:46 AM CDT Respiratory Rate 17 03/20/2025 9:25 AM CDT Oxygen Saturation 100% 03/20/2025 9:25 AM CDT Inhaled Oxygen Concentration - - Weight 83.9 kg (185 lb) 03/20/2025 7:46 AM CDT Height 165.1 cm (5' 5) 03/20/2025 7:46 AM CDT Body Mass Index 30.79 03/20/2025 7:46 AM CDT Plan of Treatment Health Maintenance Due Date Last Done Comments Breast Cancer Screening-Mammogram 1950 Colon Cancer Screening-Colonoscopy 1950 Depression Screening 1950 Fall Risk Assessment 1950 Hepatitis C Screening 1950 DTaP/Tdap/Td Vaccine (1 - Tdap) 1963 Hepatitis B Screening 1970 Pneumococcal vaccine 65+ (1 of 1 - PCV) 2002 Zoster Vaccine (1 of 2) 2002 Well Visit 65+ 2017 Osteoporosis Screening-Bone Density Scan 10/06/2022 10/06/2020, 10/06/2020, 06/03/2018 Influenza Vaccine (#1) 2025 Procedures Procedure Name Priority Date/Time Associated Diagnosis Comments US ENDOSCOPIC IP Routine 03/20/2025 8:53 AM CDT Pancreatic cyst ESOPHAGOGASTRODUODENOSCOPY ULTRASOUND EXAM LIMITED 03/20/2025 8:33 AM CDT Pancreatic cyst UPPER EUS 03/20/2025 8:30 AM CDT POCT GLUCOSE DEVICE Routine 03/20/2025 7:57 AM CDT MR BODY OUTSIDE CONSULT Routine 03/19/20 3:30 PM CDT Diagnosis unknown from Last 3 Months Results * Upper EUS (03/20/2025 8:30 AM CDT) Anatomical Region Laterality Modality Other Narrative Procedure Note Brooks Andersen MD - 03/20/2025 8:30 AM CDT ENDOSCOPY LAB Patient Name: Roselia Maddox Procedure Date: 03/20/2025 8:30 AM Admit Type: Outpatient Room: [facility] Date of : 1950 Instrument Name: [id number] Gender: Female Note Status: Finalized Procedure: Upper EUS Indications: Pancreatic cyst on MRI Comorbidities Patient on Eliquis and did not discontinue it forthe procedure. Providers: Brooks Andersen M.D. Referring MD: JESUS Sarkar Medicines: Monitored Anesthesia Care Complications: No immediate complications. Estimated blood loss:None. Estimated Blood Loss: Estimated blood loss: none. Procedure: The risks, benefits and alternatives were discussed and informed consent was obtained.The Endosonoscope was introduced through the mouth, and advanced tothe second part of duodenum The Endoscope wasintroduced through the mouth, and advanced to the second partof duodenum Findings: ENDOSCOPIC FINDING: : The examined esophagus was normal. The entire examined stomach was normal. The examined duodenum was normal. ENDOSONOGRAPHIC FINDING: : The esophagus, stomach and duodenum were visualizedendosonographically. There was no sign of significant endosonographic abnormality in the ampulla. There was no sign of significant endosonographic abnormality in the common bile duct. There was a duodenal diverticulum noted. There was suggestion of a partial pancreatic divisum vs a prominent ansa loop. The pancreaticduct was non-dilated at 1-2mm. There was a simple, unilocular, 9mm,anechoic cyst in the tail of the pancreas. There was no associated muralnodule or mass lesion. The pancreatic duct was non-dilated at 1mm in association with the cyst. The overall appearance was most consistent with a side-branch IPMN. The region of the celiac plexus and celiac ganglia was visualized and showed no sign of significant endosonographic abnormality. Thevascular anatomy of the region was normal. Impression: EGD: - Normal esophagus, stomach, and duodenum. EUS: - There was a simple, unilocular, 9mm, anechoiccyst in the tail of the pancreas. There was noassociated mural nodule or mass lesion. The pancreatic ductwas non-dilated at 1mm in association with the cyst.The overall appearance was most consistent with a side-branch IPMN. - There was a duodenal diverticulum noted. Therewas suggestion of a partial pancreatic divisum vs a prominent ansa loop. The pancreatic duct was non-dilated at 1-2mm. - There was no sign of significant pathology in the ampulla. - There was no sign of significant pathology in the common bile duct. Recommendation: - Observe patient's clinical course followingtoday's EUS. - Continue Eliquis (patient did not stop it for the procedure). - OSH MRI submitted at [facility] for consultation. Await final interpretation here. - Recommend surveillance of incidental pancreaticcyst in 12 months with MRI locally per IAP guidelines. - Resume home medications and diet. - Return to primary care physician as previously scheduled. - In the unusual situation that you developabdominal pain, bleeding or other significant problems in the days following this procedure please call my officeat [phone] ([phone]) to speak to my nurses. After hours and evenings please call [phone] speak to the GI fellow type disk quality control supervisor. Please tell themthat Dr. Andersen did your procedure and that your were instructed to have the fellow call me or thephysician covering for me to discuss the management of your condition. If you have an urgent problem, please goto the nearest emergency room and have the ER doctorcall my office during the day or [facility] transfer ([phone]) center after hours and weekends to arrange admission or transfer to our facility. Attending Participation: I personally performed the entire procedure. Electronically Signed By: Brooks Andersen M.D. Brooks Andersen M.D. 03/20/2025 9:05:23 AM This document was signed electronically. Number of Addenda: 0 Note Initiated On: 03/20/2025 8:30 AM Scope In: Scope Out: us Brooks Andersen MD ENDOSCOPY PROCEDURES Final Result * POCT glucose (03/20/2025 7:57 AM CDT) Glucose, POC 124 70 - 199 mg/dL Comment: For Glucose values <35 mg/dl when Hematocrit is >60 mg/dl,the test may not accurately detect significant hypoglycemia,and testing in the Laboratory should be considered if clinically indicated. POC Performer [phone] [facility] Blood 03/20/2025 7:57 AM CDT 03/20/2025 7:57 AM CDT us Eamon Berumen MD LAB POCT ORDERABLES - AMELIA CE Final Result [facility] [address] Department [place] [address] * MR Body Outside Consult (03/19/2025 3:30 PM CDT) Anatomical Region Laterality Modality Body N/A Magnetic Resonan ce 03/20/2025 11:2 9 AM CDT Impressions 03/20/2025 12:29 PM CDT 1. 8 mm cystic lesion in the pancreatic tail without enhancing nodular or solid component, and no associated pancreatic ductal dilation. This likely represents a small side branch intraductal papillary mucinous neoplasm. The findings, conclusions and recommendations within this report do not replace the initial findings, conclusions and recommendations made at the facility where the study was performed based upon the imaging and clinical condition at that time. Comparison with the prior report and clinical history is necessary. The provided images may or may not represent the [place] source data set and thus may contain changes that may lower the accuracy of this second-opinion interpretation. Dictated by: Barb Vazquez M.D. The radiology attending physician has personally reviewed this study, and had reviewed and/or edited this written report and agrees with it. Electronically signed by: Raheem Pierce M.D. Narrative 03/20/2025 12:29 PM CDT EXAMINATION: RADIOLOGY CONSULTATION ON OUTSIDE IMAGING STUDY STUDY INITIALLY PERFORMED: 02/24/2025 at [facility]. TYPE OF STUDY: Multiple MR images of the abdomen with and without contrast are provided at the time of this interpretation. CONTRAST ROUTE: Contrast was administered via the intravenous route. The protocol was adequate to address the clinical question. The outside final report was available at the time of this second opinion interpretation. TYPE OF CONSULTATION: Consult on outside imaging study with images submitted through Outside Image Sharing Service DATE OF CONSULTATION: 03/19/2025 3:38 PM HISTORY: Pancreatic cyst. Plan for endoscopic ultrasound on 03/20/2025. COMPARISON: None available. FINDINGS: Liver: No significant hepatic steatosis or siderosis. No liver surface nodularity. - Bile ducts: No biliary ductal dilation. - Focal liver lesions: No suspicious liver lesion identified. - Vasculature: Patent portal, splenic, and superior mesenteric veins. Patent hepatic veins. Conventional hepatic arterial anatomy. Gallbladder: Normal. Pancreas: No pancreatic ductal dilation. There is an 8 mm cystic lesion in the pancreatic tail. No enhancing nodular or solid component. Spleen: Several hemangiomas versus cysts. Adrenals: Normal size and morphology. Kidneys: Scattered bilateral renal cysts, some of which are simple and some of which are too small to characterize. There is cortical scarring of both kidneys. The right kidney is mildly atrophic. Other Findings: Hemangiomas in multiple vertebral bodies. Normal caliber abdominal aorta. No abdominal lymphadenopathy. There is a 2 x 1.8 cm duodenal diverticulum (series 6, image 22). Multiple lesions in the spleen with peripheral nodular enhancement are consistent with splenic hemangiomas, benign. Procedure Note Raheem Pierce MD - 03/20/2025 EXAMINATION: RADIOLOGY CONSULTATION ON OUTSIDE IMAGING STUDY STUDY INITIALLY PERFORMED: 02/24/2025 at [facility]. TYPE OF STUDY: Multiple MR images of the abdomen with and without contrast are provided at the time of this interpretation. CONTRAST ROUTE: Contrast was administered via the intravenous route. The protocol was adequate to address the clinical question. The outside final report was available at the time of this second opinion interpretation. TYPE OF CONSULTATION: Consult on outside imaging study with images submitted through Outside Image Sharing Service DATE OF CONSULTATION: 03/19/2025 3:38 PM HISTORY: Pancreatic cyst. Plan for endoscopic ultrasound on 03/20/2025. COMPARISON: None available. FINDINGS: Liver: No significant hepatic steatosis or siderosis. No liver surface nodularity. - Bile ducts: No biliary ductal dilation. - Focal liver lesions: No suspicious liver lesion identified. - Vasculature: Patent portal, splenic, and superior mesenteric veins. Patent hepatic veins. Conventional hepatic arterial anatomy. Gallbladder: Normal. Pancreas: No pancreatic ductal dilation. There is an 8 mm cystic lesion in the pancreatic tail. No enhancing nodular or solid component. Spleen: Several hemangiomas versus cysts. Adrenals: Normal size and morphology. Kidneys: Scattered bilateral renal cysts, some of which are simple and some of which are too small to characterize. There is cortical scarring of both kidneys. The right kidney is mildly atrophic. Other Findings: Hemangiomas in multiple vertebral bodies. Normal caliber abdominal aorta. No abdominal lymphadenopathy. There is a 2 x 1.8 cm duodenal diverticulum (series 6, image 22). Multiple lesions in the spleen with peripheral nodular enhancement are consistent with splenic hemangiomas, benign. IMPRESSION: 1. 8 mm cystic lesion in the pancreatic tail without enhancing nodular or solid component, and no associated pancreatic ductal dilation. This likely represents a small side branch intraductal papillary mucinous neoplasm. The findings, conclusions and recommendations within this report do not replace the initial findings, conclusions and recommendations made at the facility where the study was performed based upon the imaging and clinical condition at that time. Comparison with the prior report and clinical history is necessary. The provided images may or may not represent the [place] source data set and thus may contain changes that may lower the accuracy of this second-opinion interpretation. Dictated by: Barb Vazquez M.D. The radiology attending physician has personally reviewed this study, and had reviewed and/or edited this written report and agrees with it. Electronically signed by: Raheem Pierce M.D. Brooks Andersen MD IM MRI PROCEDURES Final Re sult from Last 3 Months Insurance [employer] MEDICARE GOLD MEDICARE GOLD Care Teams Multifold Operator Relationship Specialty Start Date End Date No, Physician PCP - General 05/06/24
--- OUTSIDE RECORDS SUMMARY | 2025-06-10 11:48 | XMS_ITS | Clinical Summary ---
Author Organization [facility] [employer] Address [address] [place] [address] Care Team Providers Care Paint Line Production Supervisor Name Role Phone Constance Gautam MD Primary Care Provider [phone] Source Comments [facility] [employer],non-owned Affiliates and Associated Physician Practices is amultiple site organization consisting of ambulatory clinics and hospital sitesin [place], [place], [place] and [place]. This disclosure is being madepursuant to the Care Everywhere program and may not contain all information available regarding this patient. Last updated 18.[facility] [employer] Allergies No known active allergies Medications * Be aware that medications may not be up to date on this document. Alwaysverify current medications with the patient. omeprazole (PRILOSEC) 20 MG capsule Take 20 mg by mouth daily before breakfast. Active lisinopril (PRINIVIL; ZESTRIL) 10 MG tablet Take 10 mg by mouth daily. Active fenofibrate micronized (LOFIBRA) 67 MG capsule Take 67 mg by mouth once daily. Take with largest meal of the day. Active butalbital-nataliia taminophen-caf feine (FIORICET) 50-325-40 MG tablet Take 1 Tab by mouth every 4 hours as needed. Every 4 hrs as needed for migraine Active vitamin B-12 (CYANOCOBALAMI N) 1000 MCG tablet Take 1,000 mcg by mouth once daily. Active Cholecalcifero l (VITAMIN D) 2000 UNITS CAPS Take 2,000 Units by mouth once daily. Active ibuprofen (MOTRIN) 400 MG tablet Take 400 mg by mouth nightly as needed. Active fish oil/omega-3 fatty acids (PROMEGA;CARDI -OMEGA 3) 1000 MG capsule Take 1,000 mg by mouth 2 times daily with breakfast and dinner. Active topiramate (TOPAMAX) 25 MG tablet Take 25 mg by mouth 2 times daily. Active sertraline (ZOLOFT) 50 MG tablet Take 1 Tab by mouth once daily. 30 Tab 0 2 Active folic acid (FOLVITE) 1 MG tablet Take 1 Tab by mouth once daily. 2 Active LEVEMIR FLEXPEN injection Inject 25 Units subcutaneously at bedtime. 2 Active Active Problems Problem Noted Date Diagnosed Date REM behavioral disorder 08/22/2012 Chest pain 01/26/2011 Family History Medical History Relation Name Comments Diabetes Father Hypertension Father Cancer Mother Cancer Sister 1 Relation Name Status Comments Father Alive Mother Sister 1 Alive Sister 2 Alive Social History Tobacco Use Types Packs/Day Years Used Date Smoking Tobacco: Never Smokeless Tobacco: Never Alcohol Use Standard Drinks/Week Comments No 0 (1 standard drink = 0.6 oz pur e alcohol) Comments Unknown Sex and Gender Information Value Date Recorded Sex Assigned at Not on file 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 Gender Identity Not on file Sexual Orientation Not on file Last Filed Vital Signs Vital Sign Reading Time Taken Comments Blood Pressure 141/91 08/23/2012 4:50 PM CDT Pulse 63 08/23/2012 4:50 PM CDT Temperature 36.7 C (98.1 F) 08/23/2012 4:50 PM CDT Respiratory Rate 21 08/23/2012 4:50 PM CDT Oxygen Saturation 100% 08/23/2012 4:50 PM CDT Inhaled Oxygen Concentration - - Weight 92.1 kg (203 lb) 08/23/2012 7:51 AM CDT Height 165.1 cm (5' 5) 08/23/2012 7:51 AM CDT Body Mass Index 33.78 08/23/2012 7:51 AM CDT Plan of Treatment Health Maintenance Due Date Last Done Comments NESSA (AGES 45-75) - COL ON CA SCREENING 1952 COLON MONITORING 1952 COLONOSCOPY - COLON CA SCREENING 1952 CT COLONOGRAPHY - COLON CA SCREENING 1952 Colorectal Cancer Screening 1952 FIT - COLON CA SCREENING 1952 FLEX SIG - COLON CA SCREENING 1952 HEPATITIS C SCREENING 04/27/1970 DTAP/TDAP/TD VACCINES (1 - Tdap) 1971 PNEUMOCOCCAL VACCINE 50+ (1 of 1 - PCV) 2002 ZOSTER VACCINE (1 of 2) 2002 MAMMOGRAM 11/08/2022 11/08/2020 COVID-19 VACCINE (1 - 2023-2 5 season) 2024 DEPRESSION SCREENING 10/29/2024 INFLUENZA VACCINE (#1) 2025 LIPID TESTING 09/21/2025 09/21/2020, 08/23/2012 Respiratory Syncytial Virus (RSV) Vaccine Pt: or over 60 yrs (1 - 1-dose 75+ series) 2027 BONE DENSITY TESTING Completed 10/06/2020, 06/03/2018 HEPATITIS B VACCINE Aged Out No longe r eligible based on patient's age to complete this topic HIB VACCINE Aged Out No longer eligi ble based on patient's age to complete this topic HPV VACCINE Aged Out No longer eligi ble based on patient's age to complete this topic MENINGOCOCCAL (Group B) VACCINE SHARED DECISION-MAKING Aged Out No longer eligible based on patient's age to complete this topic MENINGOCOCCAL GROUPS A/C/Y/W VACCINE Aged Out No longer eligible b ased on patient's age to complete this topic Procedures Procedure Name Priority Date/Time Associated Diagnosis Comments LIPID PROFILE Routine 08/23/2012 4:15 AM CDT Bradycardia UTI (lower urinary tract infection) Chest pain from Last 3 Months or Most Recently Relevant to Health Maintenance Results * (ABNORMAL) LIPID PROFILE (08/23/2012 4:15 AM CDT) Cholesterol 192 <200 mg/dL [facility] Triglycerides 173 10 - 210 mg/dL [facility] HDL Cholesterol 33(L) >40 mg/dL [facility] Cholesterol Risk Factor 2.0 SEE BELOW [facility] Comment: Average=1.0 <1.0=Less Risk >1.0=More Risk Comment Lipid [facility] Comment: In Coronary Artery Disease patients,including those with Ischemic Stroke, in whom nonpharmacological therapy has failed, the AHA recommends that drug therapy should be prescribed to lower the LDL cholesterol to < 100 mg/dL and may be instituted in patients with HDL < 35 mg/dL. LDL Direct 131(H) <130 mg/dL [facility] Blood specimen (specimen) BLOOD SPECIMEN / Unknown 08/23/2012 4:15 AM CDT 08/23/2012 4:46 AM CDT us Nick Ferreira MD LAB - CHEMISTRY ORDERABLES Fin al Result [facility] [address] [place] [address] from Last 3 Months or Most Recently Relevant to Health Maintenance Advance Directives * FULL RESUSCITATION (Latest Code Status on File) Date Activated Date Inactivated Comments 08/22/2012 4:11 AM 08/23/2012 9:47 PM Care Teams Paint Line Production Supervisor Relationship Specialty Start Date End Date Constance Gautam MD [address] [place] [id number] PCP - General 01/18/11
[2025-06-10 13:22] LABS: Hematocrit 35.5 % (37.0-47.0); Hemoglobin 11.8 g/dL (12.0-15.0); Immature Granulocyte Percent A 0.3 % (0-0.5); Immature Reticulocyte Fraction 10.9 % (3.0-15.9); Lymphocytes Absolute Auto 2.38 K/mm3 (0.9-3.2); Mean Corpuscular HGB Conc 33.2 g/dl (32-36); Mean Corpuscular Hemoglobin 31.1 pg (26-34); Mean Corpuscular Volume 93.4 fl (80-100); Nucleated Red Blood Cells Absolute Auto 0.000 K/mm3 (0.0-0.012); Nucleated Red Blood Cells Perc 0.0 % (0.0-0.2); Platelet Count Result 185 k/mm3 (150-375); Red Blood Count 3.80 M/mm3 (4.2-5.4); Reticulocyte Hemoglobin Conten 34.7 pg (28.2-36.6); Reticulocytes Absolute 0.07 10^6/uL (0.02-0.10); White Blood Count 7.5 K/mm3 (4.5-10.0)
[2025-06-10 13:39] LABS: Iron 87 ug/dL (37-170)
[2025-06-10 13:50] LABS: Percent Iron Saturation 25 % (20-50)
[2025-06-10 14:12] LABS: Ferritin 61.30 ng/mL (11.1-264)
[2025-06-10 14:24] LABS: Vitamin B12 > 1000.0 pg/mL (239-931)
[2025-06-10 16:58] LABS: Hemoglobin A1C 6.1 % (<5.7)
== END 2025-06-10 11:45 | disposition home or self-care (01) ==
PROVIDERS: PCP Nurse Practitioner; Visit Provider Nurse Practitioner
DX: N18.32 Chronic kidney disease, stage 3b (principal); E11.22 Type 2 diabetes mellitus with diabetic chronic kidney disease; D63.1 Anemia in chronic kidney disease
CPT/HCPCS: 36415; 82607; 82728; 82746; 83036; 83540; 83550; 85025; 85046

== ENCOUNTER 2025-07-07 14:08 | Outpatient (CLI) | payer MEDICARE, SELFPAY ==
--- NOTE | ~2025-07-07 | XR_ITS ---
EXAMINATION: XR knee RT 3V, 07/07/2025 14:15 CDT HISTORY: Pain in right knee x 3 years, fell 2 months ago COMPARISON: No comparisons available. Findings: No acute fracture or malalignment. No significant degenerative changes. Soft tissues unremarkable. Impression: No acute fracture or malalignment. Reviewed, dictated and finalized at location A. Impression: No acute fracture or malalignment.
--- NOTE | ~2025-07-07 | XR_ITS ---
EXAMINATION: XR knee LT 3V, 07/07/2025 14:15 CDT HISTORY: Pain in left knee x 3years, fell 2 months ago COMPARISON: No comparisons available. Findings: No acute fracture or malalignment. No significant degenerative changes. Soft tissues unremarkable. Impression: No acute fracture or malalignment. Reviewed, dictated and finalized at location A. Impression: No acute fracture or malalignment.
== END 2025-07-07 14:09 | disposition home or self-care (01) ==
LOC: GOSHIMG 14:09
PROVIDERS: PCP Internal Medicine; Visit Provider Clinical Nurse Specialist
DX: M25.562 Pain in left knee (principal); M25.561 Pain in right knee
CPT/HCPCS: 73562

== ENCOUNTER 2025-08-31 10:26 | Outpatient (CLI) | payer MEDICARE, SELFPAY ==
--- NOTE | ~2025-08-31 | XR_ITS ---
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 Findings: No acute fracture or malalignment. Moderate degenerative changes Soft tissues unremarkable. Impression: No acute fracture or malalignment. Reviewed, dictated and finalized at location P. NATION ASSEMBLER Impression: No acute fracture or malalignment.
== END 2025-08-31 10:27 | disposition home or self-care (01) ==
DX: M25.511 Pain in right shoulder (principal)
CPT/HCPCS: 73030

== ENCOUNTER 2025-08-31 11:04 | Outpatient (NON) | payer MEDICARE, SELFPAY ==
[2025-08-31 13:22] LABS: Add Urine Microscopic? YES; Appearance Urine Cloudy (Clear); Glucose Urine UA Negative (Negative); Leukocyte Esterase Ur 2+ LEU/UL (Negative); Nitrate Urine Negative (Negative); Non Pathogenic Casts 0-2; Specific Grav Ur 1.012 (1.001-1.035)
== END 2025-08-31 11:05 | disposition home or self-care (01) ==
LOC: ANHGOSHLAB 11:04
DX: R31.9 Hematuria, unspecified (principal)
CPT/HCPCS: 81001; 87086

== ENCOUNTER 2025-09-04 15:49 | Outpatient (CLI) | payer MEDICARE, SELFPAY ==
--- OUTSIDE RECORDS SUMMARY | 2025-09-04 15:52 | XMS_ITS | Clinical Summary ---
Author Organization [facility] Address [address] [place] [address] Care Team Providers Care Specialized Language Instructor Name Role Phone No, Physician Primary Care Provider [phone] Allergies No known active allergies Medications albuterol [...] 3 Active calcium carb/D3/magnesium/ zinc (calcium carb-D3-mag [id number]) 333 mg-200 unit -133 mg-5 mg tablet [...] Encounters Date Type Department Care Team Description 06/13/2025 Orders Only [facility] Medicine Surgery 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
[2025-09-04 17:49] LABS: Albumin Level 4.3 g/dL (3.5-5.1); Anion Gap 7 mmol/L (4-12); Blood Urea Nitrogen 28 mg/dL (7-17); Calcium 9.6 mg/dL (8.4-10.2); Carbon Dioxide 27 mmol/L (22-30); Chloride 102 mmol/L (98-107); Estimated Glomerular Filt Rate 29; Glucose 79 mg/dL (65-110); Potassium 3.9 mmol/L (3.4-5.0); Sodium 136 mmol/L (137-145)
[2025-09-04 18:01] LABS: Parathyroid Intact 23.5 pg/mL (14.5-75.2)
[2025-09-04 18:11] LABS: Total Protein Urine Random 14 mg/dL; Ur Ttl Prot Creatinine Ratio 0.44 mg/mg (0-0.20)
== END 2025-09-04 15:50 | disposition home or self-care (01) ==
LOC: ANHGOSHLAB 15:50
PROVIDERS: Visit Provider Internal Medicine Nephrology
DX: N25.81 Secondary hyperparathyroidism of renal origin (principal); I12.9 Hypertensive chronic kidney disease with stage 1 through stage 4 chronic kidney disease, or unspecified chronic kidney disease; N18.32 Chronic kidney disease, stage 3b; E55.9 Vitamin D deficiency, unspecified
CPT/HCPCS: 36415; 80069; 82306; 82570; 83970; 84156

== ENCOUNTER 2025-09-10 16:07 | Emergency (ER) | payer MEDICARE, SELFPAY ==
[2025-09-10] VITALS (11 sets, daily range): BP systolic 137–155; BP diastolic 59–84; PULSE 51–56; RESP 16–21; TEMP 36.7–36.9; O2SAT 95–100
--- NOTE | ~2025-09-10 | CT_ITS ---
CT brain wo con HISTORY:altered mental status COMPARISON: None. TECHNIQUE: Axial images were obtained of the head without intravenous contrast. FINDINGS: No acute intracranial hemorrhage, mass effect or midline shift. No extra-axial fluid collections. The calvarium is intact. Visualized paranasal sinuses and mastoid air cells are clear. IMPRESSION: No acute intracranial hemorrhage or extra axial fluid collections. All CT scans at this facility are performed using low dose modulation techniques as appropriate to perform exam including the following: automated exposure control; use of iterative reconstruction technique; adjustment of the mA and/or kV according to patient size (this includes techniques or standardized protocols for targeted exams where dose is matched to indication/reason for exam). Reviewed, dictated and finalized at location S. UNT RELATIONSHIP MANAGER IMPRESSION: No acute intracranial hemorrhage or extra axial fluid collections. All CT scans at this facility are performed using low dose modulation techniqu es as appropriate to perform exam including the following: automated exposure c ontrol; use of iterative reconstruction technique; adjustment of the mA and/or kV according to patient size (this includes techniques or standardized protocol s for targeted exams where dose is matched to indication/reason for exam).
--- NOTE | ~2025-09-10 | XR_ITS ---
EXAM/PROCEDURE: XR chest 2V HISTORY: Chest WITH HX HTN COMPARISON: 2023 TECHNIQUE: Two view(s) of the chest. FINDINGS: LUNGS: Clear of acute processes. PLEURAL SPACES: Clear. No evidence of fluid or pneumothorax. HEART/ MEDIASTINUM: Normal in appearance. SOFT TISSUES: No significant findings. BONES: No acute osseous abnormality. IMPRESSION: No acute findings. Reviewed, dictated and finalized at location A. IC RELATIONS REPRESENTATIVE IMPRESSION: No acute findings.
--- NOTE | 2025-09-10 16:09 | ECG_ITS ---
Test Date: 2025-09-10 16:17:02 Measurements Intervals [place] Rate: 55 P: 47 FL: 154 QRS: -1 QRSD: 88 T: 55 QT: 464 QTc: 444 Interpretive Statements SINUS BRADYCARDIA MINOR RV CONDUCTION DELAY BORDERLINE ECG Compared to ECG 01/15/2025 16:18:05 NO CHANGE Electronically Signed On 09-11-2025 12:56:50 NAVAL INSPECTOR by Abdirashid Carballo M.D.
--- OUTSIDE RECORDS SUMMARY | 2025-09-10 16:10 | XMS_ITS | Clinical Summary ---
Author Organization [facility] Address [address] [place] [address] Care Team Providers Care Filling Machine Tender Name Role Phone No, Physician Primary Care Provider [phone] Allergies No known active allergies Medications albuterol [...] 3 Active calcium carb/D3/magnesium/ zinc (calcium carb-D3-mag [id number]) 333 mg-200 unit -133 mg-5 mg tablet [...] Department Care Team Description 06/13/2025 Orders Only [facility] Medicine Surgery [address] [facility] [address] [place] [address] Jacquelin Bustamante PA Pancreatic cyst (Primary Dx); [...] on file 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
--- OUTSIDE RECORDS SUMMARY | 2025-09-10 16:10 | XMS_ITS | Encounter Summary ---
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
--- NOTE | 2025-09-10 16:15 | ED_ITS ---
HPI - Chest Pain General Chief Complaint: Chest Pain <Suzanna Archuleta PA-C - Last Filed: 09/19/25 14:48> Stated Complaint: L chest pain, AMS <Suzanna Archuleta PA-C - Last Filed: 09/19/25 14:48> Time Seen by Provider: 09/10/25 16:16 <Suzanna Archuleta PA-C - Last Filed: 09/19/25 14:48> Focused HPI: This is a 75 year old female that presents to the ER for chest pain. Ongoing over the last couple of hours. Reports the pain is sharp. Reports it radiates to her back, shoulder. Denies shortness of breath, abdominal pain, vomiting. GENERAL: Well-appearing, well-nourished, and in no acute distress. HEAD: Normocephalic, atraumatic. CHEST: Clear to auscultation. ?No respiratory distress. HEART: Regular rate and rhythm.? NEURO: ?Alert and oriented x3. Patient screened in triage and initial orders placed.? ?Additional care and disposition to be based upon?diagnostic testing and treatment. <Suzanna Archuleta PA-C - Last Filed: 09/19/25 14:48> History of Present Illness HPI narrative: I agree with the HPI above <Shirley Mcneill APRN - Last Filed: 09/10/25 22:08> Related Data Home Medications: Home Medications ?Medication ?Instructions ?Recorded ?Confirmed ?Last Taken ?Type albuterol sulfate 90 mcg/actuation 2 puff inhalation Q ID PRN Allergy 05/07/24 09/01/25 Unknown History aerosol inhaler Symptoms calcium carbonate (Calcium 600) 600 mg PO DAILY 09/01/25 Unknown History cholecalciferol (vitamin D3) 25 25 mcg PO DAILY 09/01/25 05/30/24 History mcg (1,000 unit) capsule 0800 cyanocobalamin (vitamin B-12) 1,000 mcg PO DAILY 05/0709/01/25 05/30/24 History 1,000 mcg tablet (Vitamin B-12) 0800 sumatriptan succinate 50 mg tablet 50 mg PO ONCE PRN M igraine Headache 05/07/24 09/01/25 Unknown History jyedqqon-yyfcekhe-nzgjg acid 240 tablet PO 02/11/25 Unknown History mcg-vit K1 150 mcg-herb 357 tablet (Alive Women's 50 Plus Ultra Multivitamin) omega 6-osa-lyi-fish oil 100 cap PO 02/11/25 09/01/25 Unknown History mg-160 mg-1,000 mg capsule (Fish Oil) acetaminophen 500 mg tablet 500 mg PO Q6H PRN 06/10/25 09/01/25 Unknown History (Tylenol Extra Strength) <Suzanna Archuleta PA-C - Last Filed: 09/19/25 14:48> Allergies/Adverse Reactions: Allergies Allergy/AdvReac Type Severity Reaction Status Date / Time No Known Allergies Allergy Verified 09/10/25 16:22 <Suzanna Archuleta PA-C - Last Filed: 09/19/25 14:48> Review of Systems 2 Review of Systems: All systems reviewed & are unremarkable except as noted in HPI and below <Shirley Mcneill APRN - Last Filed: 09/10/25 22:08> [facility] Past Medical History Medical History: Medical History Mild pulmonary hypertension Noted on echocardiogram 05/06/2024 Hyperlipidemia CKD (chronic kidney disease) stage 3, GFR 30-59 ml/min Essential hypertension Kidney stones Atrial fibrillation with RVR (05/06/24) <Suzanna Archuleta PA-C - Last Filed: 09/19/25 14:48> Surgical History Surgical History: Surgical History History of lithotripsy <Suzanna Archuleta PA-C - Last Filed: 09/19/25 14:48> Family History Family History: Family History Mother Oat cell carcinoma Sibling Cancer Possibly urethral or gynecological Daughter Cancer <Suzanna Archuleta PA-C - Last Filed: 09/19/25 14:48> Social History Social History: Social History Social History: She moved in with her granddaughter in March after her of 24 years . She reports that he was her 4th . She has 2 daughters in total. She lives with her daughter Jamia. Her daughter has several cats and the patient herself has 2 chihuahuas. She used to drink heavily episodically on the weekends but quit doing so when she was in her 30s. She is a lifelong nonsmoker and does not use illicit substances. Code status: Full code (she states she would not want to be on long-term ventilation or life support she would not want feeding tube) Surrogate decision maker: Jamia (youngest daughter) Smoking status: Never smoker Alcohol intake: never Substance use: never Substance use type: does not use Do You Feel Safe in your Home?: Yes Lack of Transportation: No Lack of Food: Never True Current Housing: I Have Housing Concerned About Future Housing: No Difficulty Paying Gas/Electric Bills: No Difficulty Paying for Meds: No Currently Unemployed: No Education: High School Diploma/GED Difficulty w/ Childcare or Family Care: No Spiritual care concerns: No <Suzanna Archuleta PA-C - Last Filed: 09/19/25 14:48> Exam 2 Narrative: GENERAL: Well appearing, well-nourished, non-toxic, in no acute distress. HEAD: Normocephalic, atraumatic. NECK: Supple. No adenopathy, no masses. RESPIRATORY: Airway patent, respirations nonlabored. Clear to auscultation bilaterally, no rales, rhonchi, wheezing. CARDIOVASCULAR: Regular rate and rhythm without murmurs, rubs, or gallops. Peripheral pulses 2+ and equal bilaterally. ABDOMINAL: Soft, nontender, nondistended, no hepatosplenomegaly. Normoactive BS. MUSCULOSKELETAL: Moves all extremities. Strength/ROM intact without gross deformities. SKIN: Warm, dry, normal color. No rashes. NEURO: A&O X3. Speech clear. Cranial nerves II-XII intact. No ataxic movements. PSYCHIATRIC: Appropriate mood and affect. Normal interaction. <Shirley Mcneill APRN - Last Filed: 09/10/25 22:08> Course Vital Signs Vital signs: Vital Signs Temperature 98.0 F 09/10/25 16:16 Pulse Rate 55 L 09/10/25 16:16 Respiratory Rate 16 09/10/25 16:16 Blood Pressure 143/71 H 09/10/25 16:16 Pulse Oximetry 100 09/10/25 16:16 Oxygen Delivery Room Air 09/10/25 16:16 Temperature 98.4 F 09/10/25 19:37 Pulse Rate 52 L 09/10/25 22:01 Respiratory Rate 19 09/10/25 22:01 Blood Pressure 153/64 H 09/10/25 22:01 Pulse Oximetry 100 09/10/25 22:01 Oxygen Delivery Room Air 09/10/25 16:16 <Suzanna Archuleta PA-C - Last Filed: 09/19/25 14:48> Vital Signs Temperature 98.0 F 09/10/25 16:16 Pulse Rate 55 L 09/10/25 16:16 Respiratory Rate 16 09/10/25 16:16 Blood Pressure 143/71 H 09/10/25 16:16 Pulse Oximetry 100 09/10/25 16:16 Oxygen Delivery Room Air 09/10/25 16:16 Temperature 98.4 F 09/10/25 19:37 Pulse Rate 52 L 09/10/25 22:01 Respiratory Rate 19 09/10/25 22:01 Blood Pressure 153/64 H 09/10/25 22:01 Pulse Oximetry 100 09/10/25 22:01 Oxygen Delivery Room Air 09/10/25 16:16 <Shirley Mcneill APRN - Last Filed: 09/10/25 22:08> MDM - Chest Pain MDM Narrative Medical decision making narrative: Pt is a 75 year old female that presents to the ER for chest pain. Ongoing over the last couple of hours. Reports the pain is sharp. Reports it radiates to her back, shoulder. Denies shortness of breath, abdominal pain, vomiting. *Patient's daughter also reports patient has intermittent altered mental status and has been more forgetful. She reports patient has complained of ringing in her ears. Patient's daughter reports earlier today she turned suddenly and felt a pulling sensation in her left arm, back, and chest. Her daughter reports she has a history of mini strokes, diabetes, depression, high blood pressure, and frequent UTIs. Labs Ordered: CBC, CMP, UA, UDS, troponin, PTT, INR, lipase Imaging Ordered: CT head, chest x-ray Medications Ordered: 1 L normal saline IV bolus, Levaquin p.o., Toradol 15 mg IV Results: Pt's CT scan indicates No acute intracranial hemorrhage or extra axial fluid collections. Diagnosis: Chronic kidney disease, urinary tract infection, hematuria Risks: HEART score: low risk HEART Score for Major Cardiac Events from [email or web address] on 09/10/2025 All calculations should be rechecked by clinician prior to use RESULT SUMMARY: 5 points Moderate Score (4-6 points) Risk of MACE of 12-16.6%. INPUTS: History ?> 1 = Moderately suspicious EKG ?> 1 = Non-specific repolarization disturbance Age ?> 2 = >=5 Risk factors ?> 1 = 1-2 risk factors Initial troponin ?> 0 = < Normal limit Consults: urology (outpatient), already established Patient Education/Shared MDM: Results of lab work and imaging shared with patient. She reports her chest pain is more muscular than cardiac. Pt and her daughter are in agreement with plan to discharge home. Patient strongly advised to maintain hydration status upon discharge and follow-up with urology as planned. She will be discharged home with a prescription for Levaquin PO. Strict return precautions provided. Patient verbalized understanding and is in agreement with plan. Vital signs stable at time of discharge. All questions answered. <Shirley Mcneill APRN - Last Filed: 09/10/25 22:08> Differential Diagnosis Differential diagnosis: Likely atypical chest pain, st elevation myocardial infarction, costochondritis and other (Urinary tract infection, musculoskeletal pain) < Shirley Mcneill APRN - Last Filed: 09/10/25 22:08> Lab Data Attestation: I reviewed the patient's lab results. <Shirley Mcneill APRN - Last Filed: 09/10/25 22:08> Result diagrams: 09/10/25 16:23 09/10/25 16:23 <Suzanna Archuleta PA-C - Last Filed: 09/19/25 14:48> Labs: Lab Results 09/10/25 09/10/25 09/10/25 Range/Units 16:23 19:36 20:06 WBC 7.2 (4.5-10.0) K/mm3 RBC 3.64 L (4.2-5.4) M/mm3 Hgb 11.4 L (12.0-15.0) g/dL Hct 33.5 L (37.0-47.0) % MCV 92.0 (80-100) fl MCH 31.3 (26-34) pg MCHC 34.0 (32-36) g/dl RDW 12.4 (11.5-14.5) % Plt Count 158 (150-375) k/mm3 MPV 10.2 (7.4-10.4) fl Immature Gran % (Auto) 0.3 (0-0.5) % Neut % (Auto) 56.5 (45.5-73.1) % Lymph % (Auto) 34.4 (18.3-44.2) % [place] % (Auto) 5.7 (2.6-8.5) % Eos % (Auto) 2.5 (0-4.4) % Baso % (Auto) 0.6 (0.2-1.2) % Lymph # (Auto) 2.49 (0.9-3.2) K/mm3 [place] # (Auto) 0.4 (0.1-0.6) K/mm3 Eos # (Auto) 0.2 (0-0.3) K/mm3 Baso # (Auto) 0.0 (0.0-0.1) K/mm3 Abs Immat Gran (auto) 0.02 (0.00-0.031) K/mm3 Absolute Neuts (auto) 4.1 (1.3-6.7) K/mm3 Absolute Nucleated RBC 0.000 (0.0-0.012) K/mm3 Nucleated RBC % 0.0 (0.0-0.2) % PT 14.9 H (11.1-14.7) Seconds INR 1.2 APTT 32.5 (22.3-36.8) Seconds Sodium 138 (137-145) mmol/L Potassium 3.7 (3.4-5.0) mmol/L Chloride 104 (98-107) mmol/L Carbon Dioxide 26 (22-30) mmol/L Anion Gap 8 (4-12) mmol/L BUN 29 H (7-17) mg/dL Creatinine 1.53 H (0.7-1.0) mg/dL Estim Creat Clear Calc 32 ml/min Estimated GFR 33 L (59 - ) Glucose 136 H (65-110) mg/dL Calcium 9.3 (8.4-10.2) mg/dL Total Bilirubin 0.4 (0.2-1.3) mg/dL AST 23 (14-36) U/L ALT 18 (6-35) U/L Alkaline Phosphatase 74 (38-126) U/L Troponin I < 0.012 0.025 D (0.000-0.034) ng/mL Total Protein 6.9 (6.3-8.2) g/dL Albumin 4.2 (3.5-5.1) g/dL Lipase 169 (23-300) U/L Urine Color Yellow (Yellow) Urine Appearance Clear (Clear) Urine pH 6.5 (5.0-9.0) Ur Specific [place] 1.010 (1.001-1.035) Urine Protein Negative (Negative) mg/dL Urine Glucose (UA) Negative (Negative) mg/dL Urine Ketones Negative (Negative) mg/dL Ur Blood (Man) 2+ H (Negative) Urine Nitrate Negative (Negative) Urine Bilirubin Negative (Negative) Urine Urobilinogen 0.2 (<2.0) mg/dL Leukocyte Esterase Rfl 2+ H (Negative) MG/UL Urine RBC 21-50 H (0-2) /hpf Urine WBC 11-20 H (0-3) /hpf Ur Squamous Epith Cells None seen (Few) /hpf Urine Bacteria None seen /hpf Urine Casts 0-2 Urine Opiates Screen Negative (Negative) Urine Methadone Screen Negative (Negative) Ur Barbiturates Screen Negative (Negative) Ur Phencyclidine Scrn Negative (Negative) Ur Amphetamine Screen Negative (Negative) U Benzodiazepines Scrn Negative (Negative) Urine Cocaine Screen Negative (Negative) U Cannabinoids Screen Negative (Negative) <Suzanna Archuleta PA-C - Last Filed: 09/19/25 14:48> Lab Results 09/10/25 09/10/25 09/10/25 Range/Units 16:23 19:36 20:06 WBC 7.2 (4.5-10.0) K/mm3 RBC 3.64 L (4.2-5.4) M/mm3 Hgb 11.4 L (12.0-15.0) g/dL Hct 33.5 L (37.0-47.0) % MCV 92.0 (80-100) fl MCH 31.3 (26-34) pg MCHC 34.0 (32-36) g/dl RDW 12.4 (11.5-14.5) % Plt Count 158 (150-375) k/mm3 MPV 10.2 (7.4-10.4) fl Immature Gran % (Auto) 0.3 (0-0.5) % Neut % (Auto) 56.5 (45.5-73.1) % Lymph % (Auto) 34.4 (18.3-44.2) % [place] % (Auto) 5.7 (2.6-8.5) % Eos % (Auto) 2.5 (0-4.4) % Baso % (Auto) 0.6 (0.2-1.2) % Lymph # (Auto) 2.49 (0.9-3.2) K/mm3 [place] # (Auto) 0.4 (0.1-0.6) K/mm3 Eos # (Auto) 0.2 (0-0.3) K/mm3 Baso # (Auto) 0.0 (0.0-0.1) K/mm3 Abs Immat Gran (auto) 0.02 (0.00-0.031) K/mm3 Absolute Neuts (auto) 4.1 (1.3-6.7) K/mm3 Absolute Nucleated RBC 0.000 (0.0-0.012) K/mm3 Nucleated RBC % 0.0 (0.0-0.2) % PT 14.9 H (11.1-14.7) Seconds INR 1.2 APTT 32.5 (22.3-36.8) Seconds Sodium 138 (137-145) mmol/L Potassium 3.7 (3.4-5.0) mmol/L Chloride 104 (98-107) mmol/L Carbon Dioxide 26 (22-30) mmol/L Anion Gap 8 (4-12) mmol/L BUN 29 H (7-17) mg/dL Creatinine 1.53 H (0.7-1.0) mg/dL Estim Creat Clear Calc 32 ml/min Estimated GFR 33 L (59 - ) Glucose 136 H (65-110) mg/dL Calcium 9.3 (8.4-10.2) mg/dL Total Bilirubin 0.4 (0.2-1.3) mg/dL AST 23 (14-36) U/L ALT 18 (6-35) U/L Alkaline Phosphatase 74 (38-126) U/L Troponin I < 0.012 0.025 D (0.000-0.034) ng/mL Total Protein 6.9 (6.3-8.2) g/dL Albumin 4.2 (3.5-5.1) g/dL Lipase 169 (23-300) U/L Urine Color Yellow (Yellow) Urine Appearance Clear (Clear) Urine pH 6.5 (5.0-9.0) Ur Specific [place] 1.010 (1.001-1.035) Urine Protein Negative (Negative) mg/dL Urine Glucose (UA) Negative (Negative) mg/dL Urine Ketones Negative (Negative) mg/dL Ur Blood (Man) 2+ H (Negative) Urine Nitrate Negative (Negative) Urine Bilirubin Negative (Negative) Urine Urobilinogen 0.2 (<2.0) mg/dL Leukocyte Esterase Rfl 2+ H (Negative) MG/UL Urine RBC 21-50 H (0-2) /hpf Urine WBC 11-20 H (0-3) /hpf Ur Squamous Epith Cells None seen (Few) /hpf Urine Bacteria None seen /hpf Urine Casts 0-2 Urine Opiates Screen Negative (Negative) Urine Methadone Screen Negative (Negative) Ur Barbiturates Screen Negative (Negative) Ur Phencyclidine Scrn Negative (Negative) Ur Amphetamine Screen Negative (Negative) U Benzodiazepines Scrn Negative (Negative) Urine Cocaine Screen Negative (Negative) U Cannabinoids Screen Negative (Negative) <Shirley Mcneill, COMPUTER FORENSICS INVESTIGATOR - Last Filed: 09/10/25 22:08> Imaging Data Attestation: I personally reviewed and interpreted this imaging study as follows: < Shirley Mcneill, UNRULY - Last Filed: 09/10/25 22:08> Radiologist's impression: Impressions Chest X-Ray 09/10/25 16:48 IMPRESSION: No acute findings. Head CT 09/10/25 20:07 IMPRESSION: No acute intracranial hemorrhage or extra axial fluid collections. All CT scans at this facility are performed using low dose modulation techniques as appropriate to perform exam including the following: automated exposure control; use of iterative reconstruction technique; adjustment of the mA and/or kV according to patient size (this includes techniques or standardized protocols for targeted exams where dose is matched to indication/reason for exam). <Shirley Mcneill APRN - Last Filed: 09/10/25 22:08> Discharge Plan Discharge Clinical Impression: Atypical chest pain, Costalchondritis Urinary tract infection Qualifiers: Urinary tract infection type: acute cystitis Hematuria presence: without hematuria Qualified Code(s): N30.00 - Acute cystitis without hematuria Hematuria Qualifiers: Hematuria type: gross Qualified Code(s): R31.0 - Gross hematuria CKD (chronic kidney disease) stage 3, GFR 30-59 ml/min Qualifiers: Chronic kidney disease stage 3 subtype: unspecified whether 3a or 3b Qualified Code(s): N18.30 - Chronic kidney disease, stage 3 unspecified <Suzanna Archuleta PA-C - Last Filed: 09/19/25 14:48> Patient Disposition: Home <Suzanna Archuleta PA-C - Last Filed: 09/19/25 14:48> Condition: Stable <Suzanna Archuleta PA-C - Last Filed: 09/19/25 14:48> Instructions: Antibiotic Form, Urinary Tract Infection in Women (ED), Costochondritis (ED) <Suzanna Archuleta PA-C - Last Filed: 09/19/25 14:48> Additional Instructions: Please return to the ER with any worsening symptoms. Follow-up with urology as planned. Take all medications as prescribed, including regularly scheduled medications. You may take Tylenol for pain control. Please your full dose antibiotics Remember to drink lots of water. <Suzanna Archuleta PA-C - Last Filed: 09/19/25 14:48> Patient Language: Chadian <Suzanna Archuleta PA-C - Last Filed: 09/19/25 14:48> Prescriptions: New levofloxacin 750 mg tablet 750 mg PO DAILY Qty: 10 0RF No Action Fish Oil 100-160-1,000 mg capsule PO Alive Women's 50 Plus Ultra MV 240-150 mcg tablet PO Eliquis 5 mg tablet See Rx Instructions .ROUTE .COMPLEX Qty: 180 2RF Dose Instruction: TAKE 1 TABLET BY MOUTH EVERY 12 HOURS Rx Instructions: TAKE 1 TABLET BY MOUTH EVERY 12 HOURS atorvastatin 40 mg tablet See Rx Instructions .ROUTE .COMPLEX Qty: 90 2RF Dose Instruction: Take 1 tablet by mouth once daily Rx Instructions: Take 1 tablet by mouth once daily fenofibrate micronized 67 mg capsule 67 mg PO DAILY Qty: 90 2RF lisinopril 20 mg tablet See Rx Instructions .ROUTE .COMPLEX Qty: 90 2RF Dose Instruction: Take 1 tablet by mouth once daily Rx Instructions: Take 1 tablet by mouth once daily acetaminophen [Tylenol Extra Strength] 500 mg tablet 500 mg PO Q6H PRN sertraline 50 mg tablet 50 mg PO DAILY Qty: 90 1RF sumatriptan succinate 50 mg Tablet 50 mg PO ONCE PRN (Reason: Migraine Headache) Rx Instructions: Take 1 tablet by mouth as needed. Repeat in 2 hours with max dose of 4 tablets in 24 hours cyanocobalamin (vitamin B-12) [Vitamin B-12] 1,000 mcg Tablet 1,000 mcg PO DAILY calcium carbonate [Calcium 600] 600 mg calcium (1,500 mg) Tablet 600 mg PO DAILY albuterol sulfate 90 mcg/actuation Hfa Aerosol Inhaler 2 puff INHALATION QID PRN (Reason: Allergy Symptoms) cholecalciferol (vitamin D3) 25 mcg (1,000 unit) Capsule 25 mcg PO DAILY trazodone 100 mg tablet 100 mg PO DAILY Qty: 90 0RF aripiprazole 5 mg tablet 5 mg PO DAILY Qty: 90 1RF amitriptyline 25 mg tablet 25 mg PO HS Qty: 90 1RF topiramate 25 mg tablet 25 mg PO DAILY Qty: 90 1RF <Suzanna Archuleta PA-C - Last Filed: 09/19/25 14:48> Follow-up/Referrals: Nick Del Valle MD [Physician, Urology] Elen Canela APRN [Primary Care Provider, Internal Medicine] <Suzanna Archuleta PA-C - Last Filed: 09/19/25 14:48> Time of Disposition: 22:06 <Suzanna Archuleta PA-C - Last Filed: 09/19/25 14:48> 22:06 <Shirley Mcneill APRN - Last Filed: 09/10/25 22:08>
[2025-09-10 16:31] LABS: Hematocrit 33.5 % (37.0-47.0); Hemoglobin 11.4 g/dL (12.0-15.0); Immature Granulocyte Percent A 0.3 % (0-0.5); Lymphocytes Absolute Auto 2.49 K/mm3 (0.9-3.2); Mean Corpuscular HGB Conc 34.0 g/dl (32-36); Mean Corpuscular Hemoglobin 31.3 pg (26-34); Mean Corpuscular Volume 92.0 fl (80-100); Nucleated Red Blood Cells Absolute Auto 0.000 K/mm3 (0.0-0.012); Nucleated Red Blood Cells Perc 0.0 % (0.0-0.2); Platelet Count Result 158 k/mm3 (150-375); Red Blood Count 3.64 M/mm3 (4.2-5.4); White Blood Count 7.2 K/mm3 (4.5-10.0)
--- OUTSIDE RECORDS SUMMARY | 2025-09-10 16:34 | XMS_ITS | Clinical Summary ---
Author Organization [facility] Address [address] [place] [address] Care Team Providers Care Manager Drug Name Role Phone No, Physician Primary Care Provider [phone] Allergies No known active allergies Medications albuterol [...] 3 Active calcium carb/D3/magnesium/ zinc (calcium carb-D3-mag [id number]) 333 mg-200 unit -133 mg-5 mg tablet [...] Department Care Team Description 06/13/2025 Orders Only [facility] Medicine Surgery [address] [place] [address] Jacquelin Bustamante PA Pancreatic cyst (Primary Dx); [...] on file 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
--- OUTSIDE RECORDS SUMMARY | 2025-09-10 16:34 | XMS_ITS | Encounter Summary ---
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
[2025-09-10 16:46] LABS: Alanine Aminotransferase 18 U/L (6-35); Albumin Level 4.2 g/dL (3.5-5.1); Alkaline Phosphatase 74 U/L (38-126); Anion Gap 8 mmol/L (4-12); Aspartate Amino Transferase 23 U/L (14-36); Bilirubin,Total 0.4 mg/dL (0.2-1.3); Blood Urea Nitrogen 29 mg/dL (7-17); Calcium 9.3 mg/dL (8.4-10.2); Carbon Dioxide 26 mmol/L (22-30); Chloride 104 mmol/L (98-107); Estimated CRCL calculation 32 ml/min; Estimated Glomerular Filt Rate 33; Glucose 136 mg/dL (65-110); Lipase 169 U/L (23-300); Potassium 3.7 mmol/L (3.4-5.0); Sodium 138 mmol/L (137-145); Total Protein 6.9 g/dL (6.3-8.2)
[2025-09-10 16:49] LABS: INR 1.2; Prothrombin Time 14.9 Seconds (11.1-14.7)
[2025-09-10 16:50] LABS: Partial Thromboplastin Time 32.5 Seconds (22.3-36.8)
[2025-09-10 16:58] LABS: Troponin I < 0.012 ng/mL (0.000-0.034)
--- NOTE | 2025-09-10 20:05 | ECG_ITS ---
Test Date: 2025-09-10 20:44:30 Measurements Intervals [place] Rate: 52 P: 77 MI: 180 QRS: 8 QRSD: 106 T: 50 QT: 494 QTc: 463 Interpretive Statements SINUS BRADYCARDIA MINOR RV CONDUCTION DELAY PROLONGED QT INTERVAL BORDERLINE ECG Compared to ECG 09/10/2025 16:17:02 Incomplete right bundle-branch block now present Prolonged QT interval now present Electronically Signed On 09-11-2025 13:06:24 CONDOMINIUM ASSOCIATION MANAGER by Abdirashid Carballo M.D.
[2025-09-10] MEDS: SODIUM CHLORIDE 0.9% IV 1,000 ML 999 ML IV CONT (20:11)
[2025-09-10 20:18] LABS: Add Urine Microscopic? YES; Appearance Urine Clear (Clear); Glucose Urine UA Negative (Negative); Leukocyte Esterase Ur 2+ LEU/UL (Negative); Nitrate Urine Negative (Negative); Non Pathogenic Casts 0-2; Specific Grav Ur 1.010 (1.001-1.035)
[2025-09-10 20:22] LABS: Troponin I 0.025 ng/mL (0.000-0.034)
[2025-09-10 20:42] LABS: Cannabinoid Screen Urine Negative (Negative)
== END 2025-09-10 22:22 | disposition home or self-care (01) ==
PROVIDERS: Emergency Medicine; Emergency Provider Registered Nurse
DX: N39.0 Urinary tract infection, site not specified (principal); R07.89 Other chest pain; M94.0 Chondrocostal junction syndrome [Tietze]; E78.5 Hyperlipidemia, unspecified; N18.30 Chronic kidney disease, stage 3 unspecified; I12.9 Hypertensive chronic kidney disease with stage 1 through stage 4 chronic kidney disease, or unspecified chronic kidney disease; I48.91 Unspecified atrial fibrillation
CPT/HCPCS: 36415; 70450; 71046; 80053; 80307; 81001; 83690; 84484; 85025; 85610; 85730; 87086; 93005; 96360; 99284; A9270; J7030